=== PATIENT | male | born 1955 | race Caucasian/White ===

== ENCOUNTER 2021-04-12 22:37 | Emergency (ER) | payer MEDICARE, SELFPAY ==
[2021-04-12 22:38] VITALS: BP 202/62; PULSE 58; RESP 16; TEMP 36; O2SAT 100; BMI 29.9
--- NOTE | 2021-04-12 22:56 | EKG12_ITS ---
Test Reason : CP Blood Pressure : / mmHG Vent. Rate : 072 BPM Atrial Rate : 072 BPM P-R Int : 170 ms QRS Dur : 082 ms QT Int : 394 ms P-R-T Axes : 049 026 214 degrees QTc Int : 431 ms Normal sinus rhythm ST & T wave abnormality, consider inferolateral ischemia Abnormal ECG Confirmed by AUTUMN VICTORIA, MANUEL ([id number]), editor managing newspaper CHICO MONTES DE OCA ([id number]) on 04/13/2021 9:26:41 AM Referred By: MONICA Confirmed By:MANUEL LEYVA MD
--- NOTE | 2021-04-12 22:57 | EDS_ITS ---
HPI History of Present Illness Chief Complaint: Chest Pain Narrative Narrative: Patient with past medical history of diabetes, hypertension, CABG x5 remotely presents with chest pain for the last 2 hours. He states that he has left arm numbness with this. He also has past medical history of anxiety. He has not taken his baby aspirin today. He denies any nausea or vomiting but states that he feels slightly short of breath. He denies any diaphoresis. No exacerbating or alleviating factors. He states usually when he gets chest pain and pressure that he lays down and it resolves, but is not happening today. He just awoke from a nap when he started feeling the symptoms. PFSH PFS Home Medications aspirin 81 mg PO DAILY 04/12/21 [History Last Taken Unknown] atorvastatin 40 mg PO DAILY 04/12/21 [History Last Taken Unknown] glipizide 10 mg PO BID 04/12/21 [History Last Taken Unknown] levothyroxine 112 mcg PO DAILY 04/12/21 [History Last Taken Unknown] metformin 500 mg PO BID 04/12/21 [History Last Taken Unknown] metoprolol tartrate 25 mg PO BID 04/12/21 [History Last Taken Unknown] pantoprazole 40 mg PO DAILY 04/12/21 [History Last Taken Unknown] sucralfate 1 g PO Q8 04/12/21 [History Last Taken Unknown] Allergy/AdvReac Type Severity Reaction Status Date / Time ELASTIC Allergy Hives Uncoded 04/12/21 22:42 MYOCIN Allergy Hives Uncoded 04/12/21 22:42 Social History Smoking Status: Never smoker ROS ROS ED ROS Narrative Constitutional: No fever, no chills. HEENT: No sore throat. No neck pain. No loss of vision. No rhinorrhea. Cardiovascular: Positive chest pain. No palpitations. No pedal edema. Respiratory: No cough, no shortness of breath. Abdominal: No abdominal pain. No nausea. No vomiting. Genitourinary: No dysuria. No hematuria. Musculoskeletal: No myalgias. No arthralgias. Neurologic: No headaches. No dizziness. No lightheadedness. Paresthesias left arm. Skin: No rash. No change in color. Psychiatric: No depression. No anxiety. EXAM Physical Exam Narrative Exam Narrative: Afebrile. Vital signs noted. HEENT: Normocephalic. Atraumatic. PERRL, EOMI. Neck soft and supple. No point tenderness or step off. Cardiovascular: Regular rate and rhythm. No murmurs, rubs, or gallops appreciated. Respiratory: No tachypnea. Lungs clear to auscultation bilaterally. Gastrointestinal: Abdomen soft, nontender, with normoactive bowel sounds. No rebound or guarding. Neurological: Awake. Alert. Nonfocal, nonlateralizing. Skin: No rash. Normal color. No pallor. Musculoskeletal: No pedal edema. Full range of motion extremities. Psychiatric: Mild anxiety. Becomes slightly tearful on examination. Const Vital Signs: 04/12/21 22:38 04/12/21 22:50 04/12/21 23:03 Temperature 96.8 F L Temperature Source Temporal Pulse Rate 58 L Respiratory Rate 16 Respiratory Effort Normal Non-Labored Blood Pressure 202/62 H Blood Pressure Mean 108 Pulse Ox 100 Oxygen Delivery Method Room Air Room Air 04/13/21 00:26 Temperature Temperature Source Pulse Rate 54 L Respiratory Rate 20 H Respiratory Effort Blood Pressure 153/52 H Blood Pressure Mean 85 Pulse Ox 99 Oxygen Delivery Method Heart Score History: Slightly/Non-Suspicious ECG: Nonspecific Repolarization Age: >/= 65 years Risk Factors: >/= 3 Risk Factors or History of CAD Troponin: </= Normal Limit Score: 5 MDM MDM MDM Narrative Medical decision making narrative: Chest pain work-up was pursued. He was administered aspirin. EKG demonstrates normal sinus rhythm at 72 bpm without ectopy or acute ST changes. He has normal white count of 7.2, hemoglobin stable 11.3. Normal platelet count of 211. Electrolyte panel is grossly unremarkable. Chest x-ray shows no acute process/disease. Patient complained of dizziness. His sister was concerned that he could not move his arm. However, the patient is able to move it but states it is painful. He is able to hold up. There is no evidence of pronator drift. I do not think that this is a stroke, but given his dizziness I will obtain a CT of the brain and repeat his troponin. Although he has history of coronary artery disease, and an intermediate heart score I do feel that he will be able to be ruled out by biomarkers. His repeat troponin is negative at 5. CT of the brain shows no acute process. Repeat examination shows he has improved movement of his left arm. Hence, I do not think that this is stroke or TIA. He has more pain and is afraid to move his arm, it was never a loss of motor function. He was given ibuprofen 600 mg orally which he usually takes. 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 Return instructions to the emergency department were reviewed. Disposition is discharged home in stable condition. Lab Data Attestation: I reviewed the patient's lab results. Labs: Laboratory Results - last 24 hr 04/12/21 04/12/21 04/12/21 23:00 23:00 23:00 WBC 7.2 RBC 3.66 L Hgb 11.3 L Hct 34.3 L MCV 93.7 MCH 30.9 MCHC 32.9 RDW Std Deviation 43.5 RDW Coeff of Jolynn 12.5 Plt Count 211 MPV 10.4 Immature Gran % (Auto) 0.300 Neut % (Auto) 37.2 L Lymph % (Auto) 52.0 H [place] % (Auto) 7.1 Eos % (Auto) 3.1 Baso % (Auto) 0.3 Absolute Neuts (auto) 2.7 Absolute Lymphs (auto) 3.73 Nucleated RBC % 0 Sodium 140 Potassium 4.0 Chloride 107 Carbon Dioxide 28.0 Anion Gap 5 BUN 24 H Creatinine 1.12 Estim Creat Clear Calc 56.44 Est GFR (MDRD) Af Amer 84 Est GFR (MDRD) Non-Af 70 BUN/Creatinine Ratio 21.4 H Glucose 208 H Calcium 9.5 Troponin I High Sens 7 B-Natriuretic Peptide 95.7 04/13/21 00:43 WBC RBC Hgb Hct MCV MCH MCHC RDW Std Deviation RDW Coeff of Jolynn Plt Count MPV Immature Gran % (Auto) Neut % (Auto) Lymph % (Auto) [place] % (Auto) Eos % (Auto) Baso % (Auto) Absolute Neuts (auto) Absolute Lymphs (auto) Nucleated RBC % Sodium Potassium Chloride Carbon Dioxide Anion Gap BUN Creatinine Estim Creat Clear Calc Est GFR (MDRD) Af Amer Est GFR (MDRD) Non-Af BUN/Creatinine Ratio Glucose Calcium Troponin I High Sens 5 B-Natriuretic Peptide Radiography Diagnostic Testing: Clinical Impression(s) from Imaging Studies Chest X-Ray 04/12/21 23:08 IMPRESSION: No acute disease. Electronically Signed: Eron Licea MD at 23:50 EST , Brain CT 04/13/21 00:17 IMPRESSION: Negative head/brain CT without intravenous contrast. Electronically Signed: Eron Licea MD at 0:55 EST , Discharge Plan Triage Chief Complaint: Chest Pain ED Provider: Héctor Miles Dx/Rx/DC Orders Clinical Impression: Chest pain, Left arm pain Instructions: ED Chest Pain, Uncertain Cause, ED Pain, Acute, Uncertain Cause Prescriptions: No Action metformin 500 mg tablet 500 mg PO BID RF: 0 atorvastatin 80 mg tablet 40 mg PO DAILY RF: 0 sucralfate 1 gram tablet 1 g PO Q8 RF: 0 pantoprazole 40 mg tablet,delayed release (DR/EC) 40 mg PO DAILY RF: 0 glipizide 5 mg tablet 10 mg PO BID RF: 0 levothyroxine 112 mcg tablet 112 mcg PO DAILY RF: 0 metoprolol tartrate 25 mg tablet 25 mg PO BID RF: 0 aspirin 81 mg Capsule 81 mg PO DAILY RF: 0 Primary Care Provider: Juvencio Shrestha Referrals: Juvencio Shrestha MD [Primary Care Provider] - 3-5 Days if not improving Disposition Disposition: Home, Self Care
[2021-04-12] MEDS: Aspirin 81 MG TAB.CHEW 324 MG PO (23:00)
--- NOTE | 2021-04-12 23:08 | RAD_ITS ---
EXAM: XR CHEST, 1 VIEW CLINICAL INDICATION: chest pain TECHNIQUE: Frontal view of the chest. This report was created using [employer] report generation technology. COMPARISON: 10/18/2012 FINDINGS: LUNGS AND PLEURAL SPACES: Unremarkable. No consolidation or edema. No pneumothorax. No effusion. HEART: CABG postsurgical changes. MEDIASTINUM: Central airways and mediastinal contour are unremarkable. BONES/JOINTS: Intact sternotomy wires. SOFT TISSUES: Unremarkable. VASCULATURE: Atherosclerotic calcifications of the nonenlarged thoracic aortic arch. RAD/Chest 1 View (Portable) IMPRESSION: No acute disease. Electronically Signed: Eron Licea MD at 23:50 EST ,
[2021-04-12 23:26] LABS: Anion Gap 5 (5-15); BUN 24 mg/dL (7-18); BUN/Creat Ratio 21.4 RATIO (10-20); Calcium,Total 9.5 mg/dL (8.5-10.1); Chloride 107 mmol/L (98-107); Creatinine, Serum 1.12 mg/dL (0.70-1.30); EST Glomerular Filtration Rate 70 mL/min (>60); Est Glom Filt Rate - Afr Amer 84 mL/min (>60); Estimated Creatinine Clearance 56.44 ml/min; Glucose 208 mg/dL (74-106); Sodium Level 140 mmol/L (136-145); Troponin-I HS 7 pg/mL (3.0-78.0)
[2021-04-12 23:30] LABS: Absolute Lymphocyte Count 3.73 X10^3/uL (0.83-4.51); Absolute Neutrophil Count 2.7 X10^3/uL (2.0-7.7); Basophil# 0.02 X10^3/uL; Basophil% 0.3 % (0-1); Eosinophil# 0.22 X10^3/uL; Eosinophils% 3.1 % (0-5); Hematocrit 34.3 % (40-54); Hemoglobin 11.3 g/dL (13.0-16.5); Lymphocyte # 3.73 X10^3/ul (0.83-4.51); Mean Corp Hgb Conc 32.9 g/dL (32-36); Mean Corpuscular Hgb 30.9 pg (27.0-32.0); Mean Corpuscular Volume 93.7 fL (80-94); Mean Platelet Vol. 10.4 fl (6.2-12.0); Monocyte# 0.51 X10^3/uL; Monocyte% 7.1 % (0-10); NRBC Flagged by Analyzer 0 % (0-5); Neutrophil # 2.67 X10^3/uL (2.7-7.7); Neutrophil % 37.2 % (47-70); Platelet Count 211 K/mm3 (150-450); RBC Distribution Width CV 12.5 % (11.6-14.6); RBC Distribution Width SD 43.5 fl (35.1-43.9); Red Blood Count 3.66 M/mm3 (4.6-6.2); White Blood Count 7.2 K/mm3 (4.4-11.0)
[2021-04-12 23:49] LABS: BNP,B-Type NATRIURETIC PEPTIDE 95.7 pg/mL (0-100)
--- NOTE | 2021-04-13 00:17 | CT_ITS ---
EXAM: CT HEAD WITHOUT INTRAVENOUS CONTRAST CLINICAL INDICATION: dizziness TECHNIQUE: Multiple axial images were obtained of the head without intravenous contrast. CTDIvol = ( 44.99 ) mGy, DLP = ( 829.85 ) mGycm This CT exam was performed using one or more of the following dose reduction techniques: automated exposure control, adjustment of the mA and/or kV according to patient size, and/or use of iterative reconstruction technique. This report was created using [employer] report generation technology. COMPARISON: None. FINDINGS: BRAIN AND EXTRA-AXIAL SPACES: Unremarkable. No intra- or extra-axial hemorrhage. No evidence of acute infarct. No intracranial mass or mass effect. There is preservation of the castillo/white matter interface. Posterior fossa structures are unremarkable. Ventricles are appropriate for age. No hydrocephalus. Basal cisterns are patent. BONES/JOINTS: Unremarkable. No discrete lytic or blastic abnormalities. SINUSES: Unremarkable as visualized. Clear. MASTOID AIR CELLS: Unremarkable. Clear. ORBITS: Visualized globes, extraocular muscles, optic nerves and retrobulbar fat appear unremarkable. CT/Brain/Head without Contrast IMPRESSION: Negative head/brain CT without intravenous contrast. Electronically Signed: Eron Licea MD at 0:55 EST ,
[2021-04-13 00:26] VITALS: BP 153/52; PULSE 54; RESP 20; O2SAT 99
[2021-04-13 01:24] LABS: Troponin-I HS 5 pg/mL (3.0-78.0)
[2021-04-13 01:40] VITALS: BP 168/78; PULSE 50; RESP 16; O2SAT 100
[2021-04-13] MEDS: Ibuprofen 600 MG Tablet PO (01:43)
[2021-04-13 01:45] VITALS: BP 168/78; PULSE 50; RESP 16; O2SAT 100
== END 2021-04-13 01:49 | disposition home or self-care (01) ==
PROVIDERS: Emergency Provider Emergency Medicine; PCP Internal Medicine; Visit Provider Emergency Medicine
DX: R07.9 Chest pain, unspecified (principal); E11.9 Type 2 diabetes mellitus without complications; F41.9 Anxiety disorder, unspecified; R42 Dizziness and giddiness; I10 Essential (primary) hypertension; M79.603 Pain in arm, unspecified; Z95.1 Presence of aortocoronary bypass graft; R06.02 Shortness of breath; R20.2 Paresthesia of skin; Z79.82 Long term (current) use of aspirin
CPT/HCPCS: 70450; 71045; 80048; 83880; 84484; 85025; 93005; 99283; A4216

== ENCOUNTER → 2021-10-16 | Outpatient (CLI) | payer MEDICARE, SELFPAY ==
[2021-10-16 11:59] LABS: Bacteria 0 SEEN /hpf (None Seen); Mucous, Urine 0 SEEN /hpf (<or=2+); Red Blood Cells-Urine 0 SEEN /hpf (0-5); White Blood Cells 0 SEEN /hpf (0-5)
[2021-10-16 15:02] LABS: Color, Urine Yellow (Yellow); Glucose, Dipstick 50 mg/dl (Normal); Ketone-Dipstick Negative (Negative); Leukocyte Esterase-Dipstick 25 /ul (Negative); Nitrite-Dipstick Negative (Negative); Occult Blood-Urine Negative /ul (Negative); Protein-Dipstick 15 mg/dl (Negative); Urine Bilirubin Dipstick Negative (Negative); Urine Clarity Clear (Clear); Urine Urobilinogen Normal (Normal)
[2021-10-16 15:07] LABS: Erythrocyte Sedimentation Rate 9 mm/hr (0-20)
[2021-10-16 15:09] LABS: Absolute Neutrophil Count 3.3 X10^3/uL (2.0-7.7); Basophil# 0.02 X10^3/uL; Basophil% 0.3 % (0-1); Eosinophil# 0.17 X10^3/uL; Eosinophils% 2.5 % (0-5); Hematocrit 33.7 % (40-54); Hemoglobin 11.1 g/dL (13.0-16.5); Lymphocyte % 41.5 % (19-41); Mean Corp Hgb Conc 32.9 g/dL (32-36); Mean Corpuscular Hgb 31.3 pg (27.0-32.0); Mean Corpuscular Volume 94.9 fL (80-94); Mean Platelet Vol. 10.6 fl (6.2-12.0); Monocyte# 0.41 X10^3/uL; Monocyte% 6.1 % (0-10); NRBC Flagged by Analyzer 0 % (0-5); Neutrophil # 3.32 X10^3/uL (2.7-7.7); Neutrophil % 49.3 % (47-70); Platelet Count 223 K/mm3 (150-450); RBC Distribution Width CV 12.5 % (11.6-14.6); RBC Distribution Width SD 43.7 fl (35.1-43.9); Red Blood Count 3.55 M/mm3 (4.6-6.2); White Blood Count 6.7 K/mm3 (4.4-11.0)
[2021-10-16 15:11] LABS: Squamous Epithelial Cells - UA 0-5 SEEN /hpf (0-5)
[2021-10-16 15:17] LABS: Vitamin B12 534 pg/mL (211-911)
[2021-10-16 15:21] LABS: Hemoglobin A1c 7.4 % (3.8-5.6)
[2021-10-16 15:24] LABS: Microalbumin,Random Urine 22.4 mg/L (NO RANGE EST.); Microalbumin:Creatinine Ratio 13.2 mg/g CRE (<30 mg/g CRE)
[2021-10-16 15:36] LABS: AST(SGOT) 10 U/L (15-37); Alanine Aminotransfer ALT/SGPT 21 U/L (16-61); Albumin, Serum 3.9 g/dL (3.2-5.0); Alkaline Phosphatase 53 U/L (45-117); Anion Gap 7 (5-15); BUN 24 mg/dL (7-18); BUN/Creat Ratio 20.9 RATIO (10-20); CRP < 2.90 mg/L (0.0-3.0); Calcium,Total 9.2 mg/dL (8.5-10.1); Chloride 107 mmol/L (98-107); Cholesterol 148 mg/dL (200); Creatinine, Serum 1.15 mg/dL (0.70-1.30); EST Glomerular Filtration Rate 68 mL/min (>60); Est Glom Filt Rate - Afr Amer 82 mL/min (>60); Globulin 3.8 g/dL (2.2-4.2); Glucose 80 mg/dL (74-106); High Density Lipoprotein 55 mg/dL; Magnesium 1.8 mg/dL (1.6-2.6); Protein, Total 7.7 g/dL (6.4-8.2); Sodium Level 141 mmol/L (136-145); Thyroid Stim Hormone (TSH) 1.89 uIU/mL (0.358-3.74); Triglycerides 104 mg/dL; Very Low Density Lipoprotein 21 mg/dL (5-40)
== END | disposition home or self-care (01) ==
LOC: MTLAB 11:47
PROVIDERS: PCP Internal Medicine; Referring Provider Internal Medicine; Visit Provider Internal Medicine
DX: E11.65 Type 2 diabetes mellitus with hyperglycemia (principal); I73.9 Peripheral vascular disease, unspecified; E78.5 Hyperlipidemia, unspecified; R07.9 Chest pain, unspecified; R79.89 Other specified abnormal findings of blood chemistry; I15.2 Hypertension secondary to endocrine disorders
CPT/HCPCS: 36415; 80053; 80061; 81001; 82043; 82306; 82570; 82607; 83036; 83735; 84439; 84443; 85025; 85652; 86140; 87086

== ENCOUNTER 2022-12-16 12:23 | Emergency (ER) | payer MEDICARE, SELFPAY ==
[2022-12-16 12:24] VITALS: BP 144/50; PULSE 57; RESP 18; TEMP 36.4; O2SAT 99; BMI 33.9
--- NOTE | 2022-12-16 12:46 | EX.ED.DYSGE1 ---
HPI History of Present Illness Chief Complaint: Hypoglycemia Narrative Narrative: 67-year-old male with history of diabetes poorly with hypoglycemic episode. He states that he has been having trouble with his blood sugars recently. He tells me that he was given his glipizide and metformin this morning which he takes p.o. twice daily and decided to go back to sleep and slept all morning. He did not eat breakfast or lunch. He was supposed to go to his primary care physician today to discuss the low blood sugars. He reports that he drinks 1 to 3 glasses of water a day. He drinks juice sometimes and coffee as well as tea. He states he does not eat much. [facility] Medical History Diabetes History of stroke Hyperlipidemia Hypertension Hypothyroid Home Medications aspirin 81 mg capsule 81 mg PO DAILY 04/12/21 [History Last Taken Unknown] atorvastatin 80 mg tablet 40 mg PO DAILY 04/12/21 [History Last Taken Unknown] glipizide 5 mg tablet 10 mg PO BID 04/12/21 [History Last Taken Unknown] levothyroxine 112 mcg tablet 112 mcg PO DAILY 04/12/21 [History Last Taken Unknown] metformin 500 mg tablet 500 mg PO BID 04/12/21 [History Last Taken Unknown] metoprolol tartrate 25 mg tablet 25 mg PO BID 04/12/21 [History Last Taken Unknown] pantoprazole 40 mg tablet,delayed release 40 mg PO DAILY 04/12/21 [History Last Taken Unknown] sucralfate 1 gram tablet 1 g PO Q8 04/12/21 [History Last Taken Unknown] Allergy/AdvReac Type Severity Reaction Status Date / Time erythromycin base Allergy Unknown Rash Verified 09/24/22 14:46 [From E-Mycin] chondroitin sulfate A Allergy Hives Verified 05/30/22 14:15 [From DuoVisc Visco Elastic] hyaluronic acid Allergy Hives Verified 05/30/22 14:15 [From DuoVisc Visco Elastic] Surgical History History of heart bypass surgery Social History Smoking Status: Never smoker ROS ROS ED Constitutional Constitutional ED: Denies chills, fever(s) or sweats Eyes Eyes: Denies blurry vision or change in vision ENT ENT ED: Denies ear pain or sore throat Cardiovascular Cardiovascular: Denies chest pain, palpitations or racing heartbeat Respiratory/Chest Respiratory/Chest: Denies cough, dyspnea or sputum Gastrointestinal Gastrointestinal: Denies abdominal pain, constipation, diarrhea, nausea or vomiting Genitourinary Genitourinary ED: Denies dysuria, hematuria or urinary frequency Musculoskeletal Musculoskeletal: Denies arthralgias, myalgias or neck pain Integumentary Denies abscess, Abrasions or rash Neurologic Neurologic: Denies headache(s), paresthesias or weakness Psychiatric Psychiatric: Denies anxiety, depression, suicidal ideation or suicidal thoughts Endocrine Endocrinology: Denies polydipsia or polyuria EXAM Physical Exam Const Vital Signs: 12/16/22 12:24 12/16/22 12:31 Temperature 97.6 F L Temperature Source Oral Pulse Rate 57 L Respiratory Rate 18 Respiratory Effort Normal Respiratory Pattern Normal Blood Pressure 144/50 H Blood Pressure Mean 81 Pulse Ox 99 Oxygen Delivery Method Room Air Positive well nourished General Appearance ED: NAD HEENT Reports moist mucous membranes Resp normal respiratory effort Cardio regular rate and regular rhythm Neuro oriented x3 and CN's II-XII intact bilaterally Sensorium / Orientation: alert Psych mental status grossly normal Skin no rashes or lesions noted and no wounds MDM MDM MDM Narrative Medical decision making narrative: Patient with episode of hypoglycemia. It sounds as if he is not eating and drinking a lot and he is taking his diabetic medications and causing low blood sugars. He was post see his PCP today but did not because of the episode. He states he feels fine now. He was given oral glucose and D10 drip prior to arrival. His blood sugar is now in the 90s. He feels better. He states he would still like to eat something and his sugars little higher. No abdominal pain, chest pain, shortness of breath. We will obtain a CBC to assess white blood cell count, hemoglobin, platelets. BMP to assess renal function and electrolytes. Urinalysis to assess for UTI. CBC shows normal white blood cell count 7.1. Hemoglobin is 9.6 with no comparison for years but he is not admitting to any black or bloody stools or black or bloody emesis. He is not on any blood thinners. He is not hypotensive. His BUN is not elevated to suggest GI bleed. Creatinine is elevated today at 1.31 so he was given IV fluids. Glucose 266 without anion gap. Discussed with the patient's primary care physician who recommended that we discontinue the glipizide for now and increase his fluid intake as well as regular meals with his metformin. He states that his A1c typically is elevated in the 9 range. He will follow-up with him as an outpatient. He will restart his glipizide at a later date. Impression: 1. dehydration 2. Hyperglycemia 3. Anemia Lab Data Attestation: I reviewed the patient's lab results. Labs: Laboratory Results - last 24 hr 12/16/22 12/16/22 12:40 13:31 WBC 7.1 RBC 3.25 L Hgb 9.6 L Hct 31.6 L MCV 97.2 H MCH 29.5 MCHC 30.4 L RDW Std Deviation 46.9 H RDW Coeff of Jolynn 13.2 Plt Count 218 MPV 10.2 Immature Gran % (Auto) 0.400 Neut % (Auto) 73.6 H Lymph % (Auto) 17.5 L [place] % (Auto) 7.1 Eos % (Auto) 1.1 Baso % (Auto) 0.3 Absolute Neuts (auto) 5.3 Absolute Lymphs (auto) 1.25 Nucleated RBC % 0 Sodium 133 L Potassium 4.3 Chloride 102 Carbon Dioxide 25.0 Anion Gap 6 BUN 20 H Creatinine 1.31 H Estim Creat Clear Calc 47.60 Est GFR (MDRD) Af Amer 70 Est GFR (MDRD) Non-Af 58 L BUN/Creatinine Ratio 15.3 Glucose 266 H Calcium 8.7 POC Glucose 176 H Discharge Plan Triage Chief Complaint: Hypoglycemia ED Provider: Ty Oro Dx/Rx/DC Orders Instructions: ED Hypoglycemia Oral Diabetic ... Prescriptions: No Action metformin 500 mg tablet 500 mg PO BID Patient Comments: TAKE ONE TABLET BY MOUTH TWICE A DAY WITH meals for 30 days atorvastatin 80 mg tablet 40 mg PO DAILY Patient Comments: TAKE ONE TABLET BY MOUTH EVERY DAY sucralfate 1 gram tablet 1 g PO Q8 Patient Comments: TAKE 1 TABLET BY MOUTH ON AN EMPTY STOMACH EVERY 8 HOURS pantoprazole 40 mg tablet,delayed release (DR/EC) 40 mg PO DAILY Patient Comments: TAKE ONE TABLET BY MOUTH ONCE DAILY glipizide 5 mg tablet 10 mg PO BID Patient Comments: TAKE THREE (3) TABLETS BY MOUTH TWICE DAILY levothyroxine 112 mcg tablet 112 mcg PO DAILY Patient Comments: TAKE ONE TABLET BY MOUTH once DAILY IN THE MORNING on an empty stomach metoprolol tartrate 25 mg tablet 25 mg PO BID Patient Comments: TAKE ONE TABLET BY MOUTH TWICE A DAY WITH FOOD aspirin 81 mg Capsule 81 mg PO DAILY Primary Care Provider: Juvencio Shrestha Referrals: Juvencio Shrestha MD [Primary Care Provider] - Activity Restrictions/Additional Instructions: Hold your glipizide 10 mg p.o. twice daily for now. Continue metformin. Increase your water intake. I did speak with your primary care physician today who recommends follow-up as an outpatient. Disposition Disposition: Home, Self Care
[2022-12-16 12:59] LABS: Absolute Lymphocyte Count 1.25 X10^3/uL (0.83-4.51); Absolute Neutrophil Count 5.3 X10^3/uL (2.0-7.7); Basophil# 0.02 X10^3/uL; Basophil% 0.3 % (0-1); Eosinophil# 0.08 X10^3/uL; Eosinophils% 1.1 % (0-5); Hematocrit 31.6 % (40-54); Hemoglobin 9.6 g/dL (13.0-16.5); Lymphocyte # 1.25 X10^3/ul (0.83-4.51); Lymphocyte % 17.5 % (19-41); Mean Corp Hgb Conc 30.4 g/dL (32-36); Mean Corpuscular Hgb 29.5 pg (27.0-32.0); Mean Corpuscular Volume 97.2 fL (80-94); Mean Platelet Vol. 10.2 fl (6.2-12.0); Monocyte# 0.51 X10^3/uL; Monocyte% 7.1 % (0-10); NRBC Flagged by Analyzer 0 % (0-5); Neutrophil # 5.25 X10^3/uL (2.7-7.7); Neutrophil % 73.6 % (47-70); Platelet Count 218 K/mm3 (150-450); RBC Distribution Width CV 13.2 % (11.6-14.6); RBC Distribution Width SD 46.9 fl (35.1-43.9); Red Blood Count 3.25 M/mm3 (4.6-6.2); White Blood Count 7.1 K/mm3 (4.4-11.0)
[2022-12-16 13:09] LABS: Anion Gap 6 (5-15); BUN 20 mg/dL (7-18); BUN/Creat Ratio 15.3 RATIO (10-20); Calcium,Total 8.7 mg/dL (8.5-10.1); Chloride 102 mmol/L (98-107); Creatinine, Serum 1.31 mg/dL (0.70-1.30); EST Glomerular Filtration Rate 58 mL/min (>60); Est Glom Filt Rate - Afr Amer 70 mL/min (>60); Glucose 266 mg/dL (74-106); Potassium 4.3 mmol/L (3.5-5.1); Sodium Level 133 mmol/L (136-145)
[2022-12-16] MEDS: 0.9% Normal Saline (1000mL) 1,000 ML 1000 ML IV (13:34)
[2022-12-16 13:52] LABS: Bedside Glucose 176 mg/dL (74-106)
[2022-12-16 15:07] VITALS: BP 155/52
== END 2022-12-16 15:09 | disposition home or self-care (01) ==
PROVIDERS: Emergency Provider Student in an Organized Health Care Education/Training Program; PCP Internal Medicine; Visit Provider Student in an Organized Health Care Education/Training Program
DX: E86.0 Dehydration (principal); E11.00 Type 2 diabetes mellitus with hyperosmolarity without nonketotic hyperglycemic-hyperosmolar coma (NKHHC); D64.9 Anemia, unspecified; I10 Essential (primary) hypertension; E78.5 Hyperlipidemia, unspecified; E03.9 Hypothyroidism, unspecified; Z79.899 Other long term (current) drug therapy; Z79.82 Long term (current) use of aspirin; Z79.84 Long term (current) use of oral hypoglycemic drugs; Z86.73 Personal history of transient ischemic attack (TIA), and cerebral infarction without residual deficits
CPT/HCPCS: 80048; 82962; 85025; 99285; A4216

== ENCOUNTER → 2023-02-17 | Outpatient (CLI) | payer MEDICARE, SELFPAY ==
[2023-02-17 13:56] LABS: Mucous, Urine 0 SEEN /hpf (<or=2+); Squamous Epithelial Cells - UA 0 SEEN /hpf (0-5)
[2023-02-17 15:21] LABS: Color, Urine Yellow (Yellow); Glucose, Dipstick 1000 mg/dl (Normal); Ketone-Dipstick 5 mg/dl (Negative); Leukocyte Esterase-Dipstick 500 /ul (Negative); Nitrite-Dipstick Positive (Negative); Occult Blood-Urine 50 /ul (Negative); Protein-Dipstick 100 mg/dl (Negative); Specific Gravity, Urine 1.015 (1.002-1.030); Urine Bilirubin Dipstick Negative (Negative); Urine Clarity Sl. Cloudy (Clear); Urine Urobilinogen Normal (Normal)
[2023-02-17 15:25] LABS: Absolute Lymphocyte Count 4.17 X10^3/uL (0.83-4.51); Absolute Neutrophil Count 5.5 X10^3/uL (2.0-7.7); Basophil# 0.05 X10^3/uL; Basophil% 0.5 % (0-1); Eosinophil# 0.12 X10^3/uL; Eosinophils% 1.1 % (0-5); Hematocrit 30.7 % (40-54); Hemoglobin 9.7 g/dL (13.0-16.5); Lymphocyte # 4.17 X10^3/ul (0.83-4.51); Lymphocyte % 39.2 % (19-41); Mean Corp Hgb Conc 31.6 g/dL (32-36); Mean Corpuscular Hgb 30.6 pg (27.0-32.0); Mean Corpuscular Volume 96.8 fL (80-94); Mean Platelet Vol. 9.9 fl (6.2-12.0); Monocyte# 0.71 X10^3/uL; Monocyte% 6.7 % (0-10); NRBC Flagged by Analyzer 0 % (0-5); Neutrophil # 5.54 X10^3/uL (2.7-7.7); Platelet Count 254 K/mm3 (150-450); RBC Distribution Width CV 15.3 % (11.6-14.6); RBC Distribution Width SD 54.1 fl (35.1-43.9); Red Blood Count 3.17 M/mm3 (4.6-6.2); White Blood Count 10.6 K/mm3 (4.4-11.0)
[2023-02-17 15:28] LABS: Bacteria 2+ /hpf (None Seen); Red Blood Cells-Urine 0-5 SEEN /hpf (0-5); White Blood Cells 25-50 SEEN /hpf (0-5)
[2023-02-17 15:59] LABS: Vitamin B12 361 pg/mL (211-911); Vitamin D,25 Hydroxy 46.5 ng/mL
[2023-02-17 16:06] LABS: Microalbumin:Creatinine Ratio 263.6 mg/g CRE (<30 mg/g CRE)
[2023-02-17 16:14] LABS: Erythrocyte Sedimentation Rate 36 mm/hr (0-20)
[2023-02-17 16:25] LABS: Hemoglobin A1c 9.3 % (3.8-5.6)
[2023-02-17 17:24] LABS: ALB/GLOB Ratio 0.9 RATIO (0.9-2.4); AST(SGOT) 11 U/L (15-37); Alanine Aminotransfer ALT/SGPT 13 U/L (16-61); Albumin, Serum 3.5 g/dL (3.2-5.0); Alkaline Phosphatase 76 U/L (45-117); Anion Gap 7 (5-15); BUN 22 mg/dL (7-18); BUN/Creat Ratio 16.5 RATIO (10-20); CRP < 2.90 mg/L (0.0-3.0); Calcium,Total 9.5 mg/dL (8.5-10.1); Chloride 104 mmol/L (98-107); Cholesterol 181 mg/dL (200); Creatinine, Serum 1.33 mg/dL (0.70-1.30); EST Glomerular Filtration Rate 57 mL/min (>60); Est Glom Filt Rate - Afr Amer 69 mL/min (>60); Globulin 3.8 g/dL (2.2-4.2); Glucose 271 mg/dL (74-106); High Density Lipoprotein 38 mg/dL; Magnesium 1.7 mg/dL (1.6-2.6); PSA,Total - Annual Screen < 0.01 ng/mL (0.00-4.00); Potassium 5.3 mmol/L (3.5-5.1); Protein, Total 7.3 g/dL (6.4-8.2); Sodium Level 135 mmol/L (136-145); T4 Free Direct 1.52 ng/dL (0.76-1.46); Thyroid Stim Hormone (TSH) 3.69 uIU/mL (0.358-3.74); Triglycerides 143 mg/dL; Very Low Density Lipoprotein 29 mg/dL (5-40)
== END | disposition home or self-care (01) ==
PROVIDERS: PCP Internal Medicine; Referring Provider Internal Medicine; Visit Provider Internal Medicine
DX: Z00.00 Encounter for general adult medical examination without abnormal findings (principal); E11.42 Type 2 diabetes mellitus with diabetic polyneuropathy; Z13.31 Encounter for screening for depression; I11.9 Hypertensive heart disease without heart failure; W19.XXXA Unspecified fall, initial encounter; G62.9 Polyneuropathy, unspecified; I25.10 Atherosclerotic heart disease of native coronary artery without angina pectoris; F32.9 Major depressive disorder, single episode, unspecified; Z12.5 Encounter for screening for malignant neoplasm of prostate; E03.9 Hypothyroidism, unspecified; E78.2 Mixed hyperlipidemia; E87.5 Hyperkalemia; E55.9 Vitamin D deficiency, unspecified; K21.9 Gastro-esophageal reflux disease without esophagitis; R35.0 Frequency of micturition
CPT/HCPCS: 36415; 80053; 80061; 81001; 82043; 82306; 82570; 82607; 82746; 83036; 83735; 84153; 84439; 84443; 85025; 85652; 86140; 87077; 87086; 87088; 87186; G0103

== ENCOUNTER → 2023-05-26 | Outpatient (CLI) | payer MEDICARE, SELFPAY ==
[2023-05-26 11:30] LABS: Bacteria 0 SEEN /hpf (None Seen); Mucous, Urine 0 SEEN /hpf (<or=2+); Red Blood Cells-Urine 0 SEEN /hpf (0-5); Squamous Epithelial Cells - UA 0 SEEN /hpf (0-5); White Blood Cells 0 SEEN /hpf (0-5)
[2023-05-26 15:40] LABS: Color, Urine Yellow (Yellow); Glucose, Dipstick 100 mg/dl (Normal); Ketone-Dipstick Negative (Negative); Leukocyte Esterase-Dipstick 25 /ul (Negative); Nitrite-Dipstick Negative (Negative); Occult Blood-Urine Negative /ul (Negative); Protein-Dipstick 15 mg/dl (Negative); Urine Bilirubin Dipstick Negative (Negative); Urine Clarity Clear (Clear); Urine Urobilinogen Normal (Normal)
[2023-05-26 15:48] LABS: Absolute Lymphocyte Count 4.88 X10^3/uL (0.83-4.51); Absolute Neutrophil Count 2.4 X10^3/uL (2.0-7.7); Basophil# 0.03 X10^3/uL; Basophil% 0.4 % (0-1); Eosinophils% 1.3 % (0-5); Hematocrit 34.2 % (40-54); Hemoglobin 10.8 g/dL (13.0-16.5); Lymphocyte # 4.88 X10^3/ul (0.83-4.51); Lymphocyte % 63.2 % (19-41); Mean Corp Hgb Conc 31.6 g/dL (32-36); Mean Corpuscular Hgb 29.3 pg (27.0-32.0); Mean Corpuscular Volume 92.9 fL (80-94); Mean Platelet Vol. 10.5 fl (6.2-12.0); Monocyte# 0.34 X10^3/uL; Monocyte% 4.4 % (0-10); NRBC Flagged by Analyzer 0 % (0-5); Neutrophil # 2.36 X10^3/uL (2.7-7.7); Neutrophil % 30.6 % (47-70); Platelet Count 245 K/mm3 (150-450); RBC Distribution Width CV 12.8 % (11.6-14.6); RBC Distribution Width SD 43.6 fl (35.1-43.9); Red Blood Count 3.68 M/mm3 (4.6-6.2); White Blood Count 7.7 K/mm3 (4.4-11.0)
[2023-05-26 16:13] LABS: ALB/GLOB Ratio 1.1 RATIO (0.9-2.4); AST(SGOT) 16 U/L (15-37); Alanine Aminotransfer ALT/SGPT 20 U/L (16-61); Alkaline Phosphatase 48 U/L (45-117); Anion Gap 8 (5-15); BUN 19 mg/dL (7-18); BUN/Creat Ratio 15.1 RATIO (10-20); Calcium,Total 9.3 mg/dL (8.5-10.1); Chloride 101 mmol/L (98-107); Creatinine, Serum 1.26 mg/dL (0.70-1.30); EST Glomerular Filtration Rate 60 mL/min (>60); Est Glom Filt Rate - Afr Amer 73 mL/min (>60); Globulin 3.7 g/dL (2.2-4.2); Glucose 135 mg/dL (74-106); Microalbumin,Random Urine 13.8 mg/L (NO RANGE EST.); Microalbumin:Creatinine Ratio 17.5 mg/g CRE (<30 mg/g CRE); Potassium 3.9 mmol/L (3.5-5.1); Protein, Total 7.7 g/dL (6.4-8.2); Sodium Level 135 mmol/L (136-145)
== END | disposition home or self-care (01) ==
LOC: MTLAB 11:24
PROVIDERS: PCP Internal Medicine; Referring Provider Internal Medicine; Visit Provider Internal Medicine
DX: E87.5 Hyperkalemia (principal); E11.22 Type 2 diabetes mellitus with diabetic chronic kidney disease; N18.31 Chronic kidney disease, stage 3a
CPT/HCPCS: 36415; 80053; 81001; 82043; 82570; 83036; 85025

== ENCOUNTER → 2023-08-12 | Outpatient (CLI) | payer MEDICARE, SELFPAY ==
--- NOTE | 2023-08-12 13:53 | ART_ITS ---
Reason For Study: Absent left pedal pulses Procedure A bilateral lower extremity continuous wave Doppler with analog waveform analysis and ankle brachial indexes. Left Segmental Pressures Left brachial= 165mmHg. Left posterior tibial artery = 128mmHg. Left digit = 57 mmHg. DP is noncompressible. The left dorsalis pedis waveforms are biphasic. The left posterior tibial artery waveforms are biphasic. Right Segmental Pressures Right brachial= 170mmHg. Right posterior tibial artery = 177mmHg. Right digit = 67 mmHg. DP is noncompressible. The right dorsalis pedis waveforms are biphasic. The right posterior tibial artery waveforms are biphasic. Indices The right ankle brachial index by the posterior tibial artery is 1.04. The right digital-brachial index is .39. DP is noncompressible. The left ankle brachial index by the posterior tibial artery is .75. The left digital-brachial index is .34. DP is noncompressible. VL/Ankle Brachial Index Interpretation Summary Right ZEYAD 1.04, normal. Doppler/PVR waveforms of the right ankle mildly diminis hed Left ZEYAD 0.75, moderate arterial insufficiency. Doppler/PVR waveforms of the le ft ankle moderately diminished at rest. Ordering Physician: Radha Benitez Referring Physician: RADHA BENITEZ MD Performed By: Mateo Maddox RVT and Student
== END | disposition home or self-care (01) ==
LOC: CVS 13:49
PROVIDERS: PCP Internal Medicine; Referring Provider Psychiatry & Neurology Neurology; Visit Provider Psychiatry & Neurology Neurology
DX: I73.9 Peripheral vascular disease, unspecified (principal)
CPT/HCPCS: 93922

== ENCOUNTER → 2023-08-20 | Outpatient (CLI) | payer MEDICARE, SELFPAY ==
--- NOTE | 2023-08-20 06:37 | MRI_ITS ---
STUDY: MRI CERVICAL SPINE WITHOUT CONTRAST REASON FOR EXAM: Male, 68 years old. Neck pain; gait disorder TECHNIQUE: Standardized fat and water weighted pulse sequences were obtained in the sagittal and axial planes. COMPARISON: None FINDINGS: Normal foramen magnum and brainstem-cervical cord junction. Normal craniovertebral junction. Normal anterior atlantoaxial articulation. Normal odontoid process. Normal cervical lordosis. Normal vertebral bodies and posterior osseous elements. C2-3: Normal endplates. Normal disc height, signal and morphology. Normal central canal and intervertebral neural foramina. C3-4: Normal endplates. Normal disc height, signal and morphology. Normal central canal and intervertebral neural foramina. C4-5: Normal endplates. Normal disc height, signal and morphology. Normal central canal and intervertebral neural foramina. C5-6: Normal endplates. Normal disc height, signal and morphology. Normal central canal and intervertebral neural foramina. C6-7: Normal endplates. Normal disc height, signal and morphology. Normal central canal and intervertebral neural foramina. C7-T1: Normal endplates. Normal disc height, signal and morphology. Normal central canal and intervertebral neural foramina. Normal cervical cord. Normal visualized soft tissue structures. MRI/Spine Cervical (Routine) IMPRESSION: Normal unenhanced MR examination of the cervical spine. Electronically Signed: Tony Gordon MD at 14:57 EDT ,
--- NOTE | 2023-08-20 06:37 | MRI_ITS ---
STUDY: MRI LUMBAR SPINE WITHOUT CONTRAST REASON FOR EXAM: Male, 68 years old. Low back pain; lower extremity radiculopathy; gait TECHNIQUE: Standardized fat and water weighted pulse sequences were obtained in the sagittal and axial planes. COMPARISON: None FINDINGS: T12-L1: Normal endplates. Normal disc height, hydration and morphology. Normal bilateral facet joints. Normal central canal and bilateral lateral recesses. Normal bilateral intervertebral neural foramina. Normal lumbar lordosis. There is no substantial scoliosis. Normal conus medullaris that terminates at the L1. L1-2: Disc desiccation but no disc protrusion, spinal stenosis, or neural foraminal stenosis. L2-3: Mild bilateral facet hypertrophy and moderate ligament flavum hypertrophy. Mild bilobed disc protrusion produces mild spinal stenosis and mild bilateral neural foraminal stenosis. L3-4: Normal endplates. Normal disc height, hydration and morphology. Normal bilateral facet joints. Normal central canal and bilateral lateral recesses. Normal bilateral intervertebral neural foramina. L4-5: Mild bilateral facet hypertrophy and moderate ligament flavum hypertrophy. No disc protrusion, spinal stenosis, or neural foraminal stenosis. L5-S1: Mild bilateral facet hypertrophy and moderate ligament flavum hypertrophy. Mild broad disc protrusion produces mild spinal stenosis and mild bilateral neural foraminal stenosis. Normal visualized sacral ala. Moderate friction related edema in the posterior subcutaneous fat. MRI/Spine Lumbar (Routine) IMPRESSION: Multilevel degenerative changes, as described above. Electronically Signed: Tony Gordon MD at 15:00 EDT ,
--- NOTE | 2023-08-20 06:37 | MRI_ITS ---
STUDY: MRI BRAIN WITH AND WITHOUT CONTRAST (ATTENTION INTERNAL AUDITORY CANALS - I.A.C.''s) REASON FOR EXAM: Male, 68 years old. mild cognitive impairment; gait disorder; Hx CVA -- With attention to IACs TECHNIQUE: Standardized multiplanar fat and water weighted pulse sequences were obtained. IV 17 cc clariscan was administered for the contrast portion of the examination. COMPARISON: None. FINDINGS: Normal bilateral temporal bones. Normal bilateral internal auditory canals. There is no demonstrated intracanalicular or cisternal vestibular schwannoma (acoustic neuroma). There is no enhancement of the bilateral VIIth or VIIIth cranial nerves. Normal bilateral cochlea, vestibules and semicircular canals. There is mild cerebral atrophy with widening of the extra-axial spaces and ventricular dilatation. There are a limited number of small white matter hyperintensities, distributed throughout the deep white matter tracts of the cerebral hemispheres, consistent with mild chronic white matter ischemic changes. There is no evidence for recent intracranial ischemia or other cause of cytotoxic edema on diffusion weighted imaging (DWI). Normal bilateral basal ganglia. Normal thalami. Normal flow voids within the major intracranial circulation suggesting patency by spin echo criteria. Normal venous enhancement. There is no enhancing intra-axial or extra-axial abnormality. There is no extra-axial fluid accumulation. Normal sella turcica, pituitary gland, infundibular stalk, optic chiasm and hypothalamus. Normal tectal plate and pineal gland. There are chronic white matter ischemic changes of the haydee. The midbrain and medulla are otherwise normal. Normal cerebellum. Normal basal cisterns. There are bilateral ocular lens implants with otherwise normal intraorbital contents. Normal visualized paranasal sinuses. Normal calvarium and skull base. Normal visualized soft tissue structures. Normal visualized upper cervical spine. MRI/Brain W/WO Contrast IMPRESSION: 1. Involutional changes of the brain, as described above. No acute infarct. 2. No MR evidence of vestibular schwannoma (acoustic neuroma) stenosis. Electronically Signed: Tony Gordon MD at 15:04 EDT ,
[2023-08-20 07:25] LABS: CREATININE FINGERSTICK 1.3 mg/dL (0.70-1.30)
== END | disposition home or self-care (01) ==
PROVIDERS: PCP Internal Medicine; Referring Provider Psychiatry & Neurology Neurology; Visit Provider Psychiatry & Neurology Neurology
DX: R42 Dizziness and giddiness (principal); G31.84 Mild cognitive impairment of uncertain or unknown etiology; R26.9 Unspecified abnormalities of gait and mobility; Z86.73 Personal history of transient ischemic attack (TIA), and cerebral infarction without residual deficits; M54.2 Cervicalgia; M54.50 Low back pain, unspecified; M54.16 Radiculopathy, lumbar region
CPT/HCPCS: 70553; 72141; 72148; A9575

== ENCOUNTER → 2023-10-14 | Outpatient (CLI) | payer MEDICARE, SELFPAY ==
[2023-10-14 14:29] LABS: Microalbumin,Random Urine 10.2 mg/L (NO RANGE EST.); Microalbumin:Creatinine Ratio 15.5 mg/g CRE (<30 mg/g CRE)
== END | disposition home or self-care (01) ==
LOC: POLAB3 13:17
PROVIDERS: PCP Internal Medicine; Visit Provider Internal Medicine Nephrology
DX: E11.3291 Type 2 diabetes mellitus with mild nonproliferative diabetic retinopathy without macular edema, right eye (principal)
CPT/HCPCS: 82043; 82570

== ENCOUNTER → 2023-12-05 | Outpatient (CLI) | payer MEDICARE, SELFPAY ==
--- OUTSIDE RECORDS SUMMARY | 2023-12-05 06:40 | XMS RPT_ITS | CCD ---
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 alcohol cravings. Labs: None noted today Patient encouraged to continue meeting with his therapist every Today patient reports her follow-up visit. Situational triggers have worsened his depression and anxiety. There have been episodes of bitter, sarcastic arguments with his sister, about him moving out and finding a new place for himself. Patient has been getting his daughter's help to look at different places and get the paperwork done, and the stress of the process is taking its toll on his mental health. Patient now has a car given to him by a very close friend, that he has been driving around to do errands and get to doctor's appointments. His other vehicle is with his estranged Brionna in [place]. Patient states that he met with over the weekend. She continues to talk about problems in their relationships and escalating his emotions and intensity to an overwhelming level. She also drinks in his presence, and takes him with her when she goes shopping for alcohol. Patient mentioned an incident the other day when they were at the grocery, in the line to buy wine bottles, and the patient noticed that Brionna was intensely watching his reaction to all the alcohol around him. Her drinking appears to be a significant risk factor for patient's relapse. When asked about cravings, patient said that he has not relapsed yet, but continues to get very close to it. If she had opened that bottle of good wine that day, I would have taken a sip . No SI/HI/AVH. Later in the interview, patient expressed, in confidence, some sensitive personal details, and how he had been persecuted and discriminated all his life because of it. We shall continue to explore it in subsequent visits (sn). Medication side effects: None Suicidal/Homicidal Thoughts/Plans: None Substance Use History: None VITAL SIGNS: There were no vitals taken for this visit. LAB DATA: Reviewed most recent MENTAL STATUS EXAMINATION: Appearance: appears stated age, ,Male, well developed, well nourished, normal clothing, grooming is Within Normal Limits Activity: Normal , Steady gait, normal muscle tone, movements noted Behavior: Cooperative, Good eye contact, forthcoming with information and engaged in conversation Speech: spontaneous , Normal rate, Normal volume, clear articulation, appropriate phonetics and syntax Mood: Euthymic Affect: appropriate to content Thought Process: Linear, rational, goal directed Thought Content: Focused on symptoms and management, anxious ruminations, apprehensions about cravings and relapsing into alcohol use, No suicidal ideation, intent or plan., No homicidal ideation, intent or plan., No perceptual disturbances like delusions/paranoia/halluc inations. Did not appear internally stimulated Cognition: Orientation: Person, Place, Time and Situation Attention: Intact Concentration: Intact Language: Intact naming, Int (more content not included)... Normal [facility] CNOVon 08-27-2022 CNOV Office Visit (ARESCL ) ----- JOSSUE GIL ([id number]) 1955 M Date Time Provider Department 08/27/22 1:00 PM DIAMOND JEAN ARESCL During your visit today, we recorded the following information about you: Diamond Jean MD 08/27/2022 2:44 PM Signed [facility] PROGRESS NOTE PATIENT: Jossue Gil MRD: [id number] DATE: August 27, 2022 This document has been created with the use of voice recognition technology. It may contain inaccuracies, misspellings, syntax errors, or word sense that escaped review IDENTIFYING INFORMATION: Jossue is a 66 year old male with a history of coronary artery disease, and recent strokes, and PPH of depression and anxiety. CHIEF COMPLAINT: The of my great granddaughter brought me so much happiness SUBJECTIVE: Plan from last visit (July 02, 2022): See patient back in 7 to 8 weeks Medications: Increase Lexapro dose to 20 mg at bedtime, for mood and anxiety Continue the dose of gabapentin as before: Scheduled 600 mg nightly + PRN 100 mg at morning and afternoon. For alcohol cravings, anxiety and chronic pain Labs: None ordered today Patient is encouraged to continue meeting with his therapist every . Today patient reports for follow-up visit. Reports a recent, significantly positive occurrence in his life: the of his great granddaughter. Patient went to [facility] to help with taking care of the , and was away from [place] for about 3 weeks. He reports that the experience brought him great ryley and hope. I enjoyed the baby-love . Reports significant improvement in anxiety and depression owing to this event. Back home, the stressors persist. He is still looking for place to move out, as his sister is turning increasingly frustrated and hostile with his presence. Things are calmer now with his ex Brionna. Patient disclosed the troubles in the personal life of his daughter Pratibha. Patient reports some incipient problems with memory. He has started noticing that it takes him longer to read a book now, it takes longer for him to finish sentences now. We shall continue to explore this in subsequent visits. Towards the end of the interview, patient discussed some sensitive personal details, and mentioned a constant fear of persecution because of it. We shall continue to talk about it further in subsequent visits. Alcohol cravings although persistent, are still under control. Some intrusive thoughts about alcohol consumption when he drives by liquor stores. He needs about 3 doses a week of the PRN Gabapentin 100 mg, in addition to the scheduled nighttime 600 mg dose. Good compliance with medication. Good sleep and appetite. No SI/HI/AVH Medication side effects: None Suicidal/Homicidal Thoughts/Plans: None Substance Use History: None VITAL SIGNS: There were no vitals taken for this visit. LAB DATA: Most recent lab values MENTAL STATUS EXAMINATION: Appearance: appears stated age, ,Male, well developed, well nourished, normal clothing, grooming is Within Normal Limits Activity: Normal , Steady gait, normal muscle tone, no abnormal movements noted Behavior: Cooperative, Good eye contact, engaged in conversation and forthcoming with information Speech: spontaneous , Normal rate, Normal volume, Clear, appropriate phonetics and syntax Mood: Euthymic Affect: appropriate to content Thought Process: Linear, goal directed Thought Content: Future orientation and positive outlook especially in the context of of great granddaughter, fear of persecution regarding some sensitive personal details that he disclosed today, No suicidal ideation, intent or plan., No homicidal ideation, intent or plan., Coherent No perceptual disturbances like delusions, paranoia or hallucinations. Patient did not appear internally stimulated Cognition: Orientation: Person, Place, Time and Situation Attention: Intact Concentration: Intact Language: Intact naming, Intact repetition Estimated Intelligence: Good Memory: Intact recent memory, Intact remote memory Abstraction: Intact Insight: fair Judgement: fair RATING SCALES: PHQ-9 Score: 15 (08/27/2022 1:40 PM) (0-4) minimal depression, (5-9) mild depression, (10-14) moderate depression, (15-19) moderately severe depression, (20-27) severe depression SARAH-7 Total Score: 11 (08/27/2022 1:41 PM) (0-4) minimal anxiety, (5-9) mild anxiety, (10-14) moderate anxiety, (15-21) severe anxiety RISK ASSESSMENT: Low, in context of current behavioral status, regular compliance with medications, and recent of great grandchild acted as a significant positive factor IMPRESSION: 66-year-old male patient with multiple medical comorbidities including coronary artery disease s/p multiple CABGs, recent stroke (more content not included)... Normal [facility] 25(OH)D3 [facility] 2022 25-hydroxyvitamin D3 [Mass/Vol] 32.9 ng/mL Normal >=30.0 [facility] Comment on above: Order Comment: Speci men Type: BLOOD SPECIMEN [facility] Facility: [facility] Address: [address] [place], [place] [address]AN[place]ONY [place], [place] [address] Result Comment: Clas sification of 25 [place] Vitamin D status: Deficiency: <= 20.0 ng/ml. Insufficiency: 21.0-29.0 ng/ml. Sufficiency: >= 30.0 ng/ml. Performed By: #### 1 989-3 #### [facility] CLIA [id number] [address] [place] [facility] CBC W Auto Differential pane l (Bld)on 04-02-2022 Basophils (Bld) [#/Vol] 0.04 10*3/uL Normal <0.11 [facility] Comment on above: Order Comment: Speci men Type: BLOOD SPECIMEN Ordering Facility: [facility] Address: [address] [address] Performed By: #### 5 7021-8 #### [facility] CLIA [id number] [address] [place] Basophils/100 WBC (Bld) 0.5 % Normal [facility] Comment on above: Order Comment: Speci men Type: BLOOD SPECIMEN [facility]ing [facility] Address: [address] [address] Performed By: #### 5 7021-8 #### [facility] CLIA [id number] [address] Differential cell count method Nom (Bld) Auto Normal [facility] Comment on above: Order Comment: Speci men Type: BLOOD SPECIMEN [facility]ing Facility[facility] Address: [address] [address] Performed By: #### 5 7021-8 #### [facility] CLIA [id number] [address] [place] Eosinophils (Bld) [#/Vol] 0.34 10*3/uL Normal <0.46 [facility] Comment on above: Order Comment: Speci men Type: BLOOD SPECIMEN [facility] Address: [address] [place] [address] Performed By: #### 5 7021-8 #### [facility] CLIA [id number] [address] Eosinophils/100 WBC (Bld) 4.5 % Normal [facility] Comment on above: Order Comment: Speci men Type: BLOOD SPECIMEN [facility]ing Facility: [facility] Address: [address] [place] [address] Performed By: #### 5 7021-8 #### [facility] CLIA [id number] [address] Erythrocyte distribution width (RBC) [Ratio] 12.9 % Normal 11.5-15.0 [facility] Comment on above: Order Comment: Speci men Type: BLOOD SPECIMEN [facility] Address: [address] [place] [address] Performed By: #### 5 7021-8 #### [facility] CLIA [id number] [address] Hematocrit (Bld) [Volume fraction] 34.9 % Low 39.0-51.0 [facility] Comment on above: Order Comment: Speci men Type: BLOOD SPECIMEN [facility] Address: [address] [place] [address] Performed By: #### 5 7021-8 #### [facility] CLIA [id number] [address] Hemoglobin (Bld) [Mass/Vol] 11.0 g/dL Low 13.0-17.0 [facility] Comment on above: Order Comment: Speci men Type: BLOOD SPECIMEN [facility] Address: [address] [place] [address] Performed By: #### 5 7021-8 #### [facility] CLIA [id number] [address] Immature granulocytes (Bld) [#/Vol] 10*3/uL Normal <0.10 [facility] Comment on above: Order Comment: Speci men Type: BLOOD SPECIMEN [facility] Address: [address] [place], [place] [id number] Performed By: #### 5 7021-8 #### [facility] CLIA [id number] [address] Immature granulocytes/100 WBC (Bld) 0.3 % Normal [facility] Comment on above: Order Comment: Speci men Type: BLOOD SPECIMEN [facility] Address: [address] [place] [address] Performed By: #### 5 7021-8 #### [facility] CLIA [id number] [address] [place] Lymphocytes (Bld) [#/Vol] 3.16 10*3/uL Normal 1.00-4.00 [facility] Comment on above: Order Comment: Speci men Type: BLOOD SPECIMEN [facility] Address: [address] [place] [address] Performed By: #### 5 7021-8 #### [facility] CLIA [id number] [address] [place] [address] Lymphocytes/100 WBC (Bld) 42.2 % Normal [facility] Comment on above: Order Comment: Speci men Type: BLOOD SPECIMEN [facility] Address: [address] [place] [address] Performed By: #### 5 7021-8 #### [facility] CLIA [id number] [address] MCH (RBC) [Entitic mass] 30.2 pg Normal 26.0-34.0 [facility] Comment on above: Order Comment: Speci men Type: BLOOD SPECIMEN [facility] Address: [address] [place] [address] Performed By: #### 5 7021-8 #### [facility] CLIA [id number] [address] [place] [facility] MCHC (RBC) [Mass/Vol] 31.5 g/dL Normal 30.5-36.0 [facility] Comment on above: Order Comment: Speci men Type: BLOOD SPECIMEN Ordering [facility] Address: [address] [place] [address] Performed By: #### 5 7021-8 #### [facility] CLIA [id number] [address] [place] MCV (RBC) [Entitic vol] 95.9 fL Normal 80.0-100.0 [facility] Comment on above: Order Comment: Speci men Type: BLOOD SPECIMEN [facility] Address: [address] [place] [address] Performed By: #### 5 7021-8 #### [facility] CLIA [id number] [address] [place] Monocytes (Bld) [#/Vol] 0.48 10*3/uL Normal <0.87 [facility] Comment on above: Order Comment: Speci men Type: BLOOD SPECIMEN [facility] Address: [address] [place] [address] Performed By: #### 5 7021-8 #### [facility] CLIA [id number] [address] [place] Monocytes/100 WBC (Bld) 6.4 % Normal [facility] Comment on above: Order Comment: Speci men Type: BLOOD SPECIMEN [facility] Address: [address] [place] [address] Performed By: #### 5 7021-8 #### [facility] CLIA [id number] [address] [place] Neutrophils (Bld) [#/Vol] 3.45 10*3/uL Normal 1.45-7.50 [facility] Comment on above: Order Comment: Speci men Type: BLOOD SPECIMEN [facility] Address: [address] [place] [address] Performed By: #### 5 7021-8 #### [facility] CLIA [id number] [address] [place] Neutrophils/100 WBC (Bld) 46.1 % Normal [facility] Comment on above: Order Comment: Speci men Type: BLOOD SPECIMEN [facility] Address: [address] [place] [address] Performed By: #### 5 7021-8 #### [facility] CLIA [id number] [address] Nucleated RBC (Bld) [#/Vol] 10*3/uL Normal <0.01 [facility] Comment on above: Order Comment: Speci men Type: BLOOD SPECIMEN [facility] Address: [address] [place] [address] Performed By: #### 5 7021-8 #### [facility] CLIA [id number] [address] Nucleated RBC/100 WBC (Bld) [Ratio] 0.0 /100 WBC Normal [facility] Comment on above: Order Comment: Speci men Type: BLOOD SPECIMEN [facility] Address: [address] [place] [address] Performed By: #### 5 7021-8 #### [facility] CLIA [id number] [address] [place] Platelet mean volume (Bld) [Entitic vol] 10.3 fL Normal 9.0-12.7 [facility] Comment on above: Order Comment: Speci men Type: BLOOD SPECIMEN [facility] Address: [address] [place] [address] Performed By: #### 5 7021-8 #### [facility] CLIA [id number] [address] [place] Platelets (Bld) [#/Vol] 234 10*3/uL Normal 150-400 [facility] Comment on above: Order Comment: Speci men Type: BLOOD SPECIMEN [facility] Address: [address] [place] [address] Performed By: #### 5 7021-8 #### [facility] CLIA [id number] [address] RBC (Bld) [#/Vol] 3.64 10*6/uL Low 4.20-6.00 [facility] Comment on above: Order Comment: Speci men Type: BLOOD SPECIMEN [facility] Address: [address] [place] [address] Performed By: #### 5 7021-8 #### [facility] CLIA [id number] [address] WBC (Bld) [#/Vol] 7.49 10*3/uL Normal 3.70-11.00 [facility] Comment on above: Order Comment: Speci men Type: BLOOD SPECIMEN [facility] Address: [address] [place] [address] Performed By: #### 5 7021-8 #### [facility] CLIA [id number] [address] Comprehensive metabolic 2000 panelon 04-02-2022 Albumin [Mass/Vol] 4.4 g/dL Normal 3.9-4.9 [facility] Comment on above: Order Comment: Speci men Type: BLOOD SPECIMEN [facility] Address: [address] [place] [address] Performed By: #### 3 016-3, 63500-8, 2131-10 #### [facility] CLIA [id number] [address] ALP [Catalytic activity/Vol] 59 U/L Normal 38-113 [facility] Comment on above: Order Comment: Speci men Type: BLOOD SPECIMEN [facility] Address: [address] [place] [address] Performed By: #### 3 016-3, 19498-7, 2131-10 #### [facility] CLIA [id number] [address] ALT With P-5'-P [Catalytic activity/Vol] 14 U/L Normal 10-54 [facility] Comment on above: Order Comment: Speci men Type: BLOOD SPECIMEN [facility] Address: [address] [place] [address] Performed By: #### 3 016-3, , 2131-10 #### [facility] CLIA [id number] [address] [place] [facility] Anion gap [Moles/Vol] 10 mmol/L Normal 9-18 [facility] Comment on above: Order Comment: Speci men Type: BLOOD SPECIMEN [facility] Address: [address] [place] [address] Performed By: #### 3 016-3, , 2131-10 #### [facility] CLIA [id number] 1 [place] [address] [place] AST With P-5'-P [Catalytic activity/Vol] 16 U/L Normal 14-40 [facility] Comment on above: Order Comment: Speci men Type: BLOOD SPECIMEN [facility] Address: [address] [place] [address] Performed By: #### 3 016-3, , 2131-10 #### [facility] CLIA [id number] [address] [place] Bilirubin [Mass/Vol] 0.2 mg/dL Normal 0.2-1.3 [facility] Comment on above: Order Comment: Speci men Type: BLOOD SPECIMEN [facility] Address: [address] [place] [address] Performed By: #### 3 016-3, , 2131-10 #### [facility] CLIA [id number] [address] [place] Calcium [Mass/Vol] 10.0 mg/dL Normal 8.5-10.2 [facility] Comment on above: Order Comment: Speci men Type: BLOOD SPECIMEN [facility] Address: [address] [place] [address] Performed By: #### 3 016-3, 31234-0, 2131-10 #### [facility] CLIA [id number] [address] [place] Chloride [Moles/Vol] 102 mmol/L Normal 97-105 [facility] Comment on above: Order Comment: Speci men Type: BLOOD SPECIMEN [facility] Address: [address] [place] [address] Performed By: #### 3 016-3, 76367-2, 2131-10 #### [facility] CLIA [id number] [address] [place] CO2 [Moles/Vol] 27 mmol/L Normal 22-30 [facility] Comment on above: Order Comment: Speci men Type: BLOOD SPECIMEN [facility] Address: [address] [place] [address] Performed By: #### 3 016-3, , 2131-10 #### [facility] CLIA [id number] [address] [facility] Creatinine [Mass/Vol] 1.11 mg/dL Normal 0.73-1.22 [facility] Comment on above: Order Comment: Speci men Type: BLOOD SPECIMEN [facility] Address: [address] [place] [address] Performed By: #### 3 016-3, 54133-3, 2131-10 #### [facility] CLIA [id number] [address] ESTIMATED GLOMERULAR FILTRATION RATE 73 mL/min/1.73m??? Normal >=60 [facility] Comment on above: Order Comment: Speci men Type: BLOOD SPECIMEN [facility] Address: [address] [place] [address] Result Comment: Naomi mated Glomerular Filtration Rate (eGFR) is calculated using the 2020 CKD-EPI creatinine equation. This equation utilizes serum creatinine, sex, and age as parameters. The creatinine assay has traceable calibration to isotope dilution-mass spectrometry. Refer to KDIGO guidelines for clinical interpretation. In patients with unstable renal function, e.g. those with acute kidney injury, the eGFR may not accurately reflect actual GFR. Performed By: #### 3 016-3, , 2131-10 #### [facility] CLIA [id number] 1 [place] [address] [place] Glucose [Mass/Vol] 278 mg/dL High 74-99 [facility] Comment on above: Order Comment: Kendrick quezada Type: BLOOD SPECIMEN [facility] Address: [address] [place] [address] Result Comment: The [place] [employer] (ADA) provides guidance for cutoff values for fasting glucose and random glucose. The ADA defines fasting as no caloric intake for at least 8 hours. Fasting plasma glucose results between 100 to 125 mg/dL indicate increased risk for diabetes (prediabetes). Fasting plasma glucose results greater than or equal to 126 mg/dL meet the criteria for diagnosis of diabetes. In the absence of unequivocal hyperglycemia, results should be confirmed by repeat testing. In a patient with classic symptoms of hyperglycemia or hyperglycemic crisis, random plasma glucose results greater than or equal to 200 mg/dL meet the criteria for diagnosis of diabetes. Reference: Standards of Medical Care in Diabetes 2016, [place] [employer]. Diabetes Care. 2016.39(Suppl 1). Performed By: #### 3 016-3, , 2131-10 #### [facility] CLIA [id number] 1 [place] [address] [place] Potassium [Moles/Vol] 5.6 mmol/L High 3.7-5.1 [facility] Comment on above: Order Comment: Kendrick quezada Type: BLOOD SPECIMEN [facility] Address: [address] [place] [address] Performed By: #### 3 016-3, , 2131-10 #### [facility] CLIA [id number] 1 [place] [address] [place] Protein [Mass/Vol] 6.8 g/dL Normal 6.3-8.0 [facility] Comment on above: Order Comment: Kendrick quezada Type: BLOOD SPECIMEN [facility] Address: [address] [address] Performed By: #### 3 016-3, 14759-0, 2131-10 #### [facility] CLIA [id number] [address] [place] [facility] Sodium [Moles/Vol] 139 mmol/L Normal 136-144 [facility] Comment on above: Order Comment: Speci men Type: BLOOD SPECIMEN [facility] Address: [address] [place] [address] Performed By: #### 3 016-3, , 2131-10 #### [facility] CLIA [id number] [address] [place] Urea nitrogen [Mass/Vol] 17 mg/dL Normal 9-24 [facility] Comment on above: Order Comment: Speci men Type: BLOOD SPECIMEN [facility] Address: [address] [place] [address] Performed By: #### 3 016-3, , 2131-10 #### [facility] LABORATORY CLIA [id number] [address] [place] TSH SerPl-aCncon 04-02-2022 TSH Qn 0.212 m[IU]/L Low 0.270-4.200 [facility] Comment on above: Order Comment: Speci men Type: BLOOD SPECIMEN [facility]ing Facility[facility] Address: [place] [address] Performed By: #### 3 016-3, , 2131-10 #### [facility] CLIA [id number] 1 [place] [address] [place] Vit B12 SerPl-mCncon 023 Cobalamin (Vitamin B12) [Mass/Vol] 580 pg/mL Normal 232-1245 [facility] Comment on above: Order Comment: Speci men Type: BLOOD SPECIMEN Ordering Facility[facility] Address: [place] [address] Performed By: #### 3 016-3, 49110-1, 2132-9 #### [facility] CLIA [id number] 1 [place] [address] [place] HbA1c (Bld)on 10-16-2021 HbA1c (Bld) [Mass fraction] 7.4 % Abnormal 3.8 - 5.6 % [facility] OBSOLETEon 12-11-2020 OBSOLETE Refill (NEADFV) ----- JOSSUE GIL ([id number]) 1955 M Date Time Provider Department 12/11/20 SAMY DAY NEADFV During your visit today, we recorded the following information about you: Allergies As of Date: 12/11/2020 Noted Allergy Reaction ELASTIC 11/27/2009 2 - Rash ERYTHROMYCIN 11/20/2009 11 - Vomiting ERYTHROMYCIN BASE 10/07/2017 14 - Other: See Comments Z-JAMIL (AZITHROMYCIN) 11/16/2015 14 - Other: See Comments Comments: Welts on chest Date Reviewed: 11/14/2020 Reviewed by: Anika Moore MA - Fully Assessed Reason for Visit: Refill Request [94] Order(s):atorvastatin (LIPITOR) 80 mg tabletTAKE ONE TABLET BY MOUTH EVERY DAYDisp: 90 tabletRfl: 0 Prescriptions as of 12/11/2020 - atorvastatin (LIPITOR) 80 mg tablet TAKE ONE TABLET BY MOUTH EVERY DAY - clotrimazole (MYCELEX) 10 mg prakash Use 1 Prakash as instructed five times daily. - gabapentin (NEURONTIN) 100 mg capsule Take 100 mg by mouth q 12 HR. - gabapentin (NEURONTIN) 400 mg capsule Take 400 mg by mouth once daily. - pantoprazole DR (PROTONIX) 40 mg tablet TAKE ONE TABLET BY MOUTH ONCE DAILY - amLODIPine (NORVASC) 5 mg tablet Take 1 tablet by mouth once daily. - iv contrast (will be provided with radiology test) CTA ABD/PEL LE - No IV access, insert saline lock prior to the sedation, infusion, injection for imaging exam. Discontinue saline lock post exam. If Pt. has a central line or IVAD, may access for administration according to line specific nursing protocol. Once exam is complete flush line and de-access according to line specific nursing protocol in the CT contrast administration guidelines link. - cyanocobalamin, vitamin B-12, (VITAMIN B-12 ORAL) Take by mouth. - ergocalciferol, vitamin D2, (VITAMIN D2 ORAL) Take by mouth. - meclizine (ANTIVERT) 25 mg tab Take 1 tablet by mouth three times daily as needed (dizziness). for dizziness. - glipiZIDE (GLUCOTROL) 5 mg tablet Take 3 tablets by mouth twice daily. - lisinopril (ZESTRIL, PRINIVIL) 20 mg tablet Take 1 tablet by mouth twice daily. - metoprolol tartrate, short acting, (LOPRESSOR) 25 mg tablet Take 25 mg by mouth twice daily. - metFORMIN (GLUCOPHAGE) 500 mg tablet Take 500 mg by mouth twice daily with meals. - levothyroxine (SYNTHROID) 112 mcg tablet Take 112 mcg by mouth daily before breakfast. - Aspirin 81 mg ORAL Tab Take one(1) tablet daily. Problem List As Of Date 12/11/2020 Noted Resolved Congestive heart failure (HCC) [I50.9] 12/08/2009 Coronary artery disease involving [place]*07/02/2017 S/P CABG (coronary artery bypass graft) [Z95.1] 07/02/2017 Pure hypercholesterolemia [E78.00] 01/05/2018 Essential hypertension [I10] 01/05/2018 Lacunar infarct, acute (HCC) [I63.81] 03/03/2019 Cerebral infarction (HCC) [I63.9] 03/29/2019 Intracranial vascular stenosis [I67.9] 03/29/2019 Polyneuropathy [G62.9] 03/29/2019 Type 2 diabetes mellitus with diabetic polyneur*03/29/2019 CVA (cerebral vascular accident) (HCC) [I63.9] 05/29/2019 Prescriptions ordered this encounter Disp Refills Start End ATORVASTATIN 80 MG TABLET 90 t* 0 12/11/2020 Sig: TAKE ONE TABLET BY MOUTH EVERY DAY Medications Discontinued During This Encounter Prescriptions - atorvastatin (LIPITOR) 80 mg tablet (Discontinued) TAKE ONE TABLET BY MOUTH DAILY Encounter Status:Closed by SAMY DAY on 12/11/20 [facility] BRIEF OP NOTon 07-24-2020 BRIEF OP NOT HNO ID: [id number] Author: Aurora Ku MD Service: Vascular Surgery Author Type: Resident Type: Brief Op Note Filed: 07/24/2020 2:23 PM Note Text: BRIEF OPERATIVE / PROCEDURE NOTE LOG ID: [id number] Surgery/Procedure Date: 07/24/2020 Incision/Procedure Start Time: 12:32 PM Incision Close/Procedure End Time: 1:37 PM Surgeon(s)/Proceduralist( s) and Energy Project Engineer(s): Surgeon(s) and Role: * Cornelio Ritter MD - Primary No Additional Staff Procedure(s): Aortogram Right lower extremity angiogram Balloon angioplasty x2 of distal SFA and AK popliteal artery using 4mm x 60mm and 4mm x 40mm Impact Admiral drug coated balloon LIVIA Angio: Access: Left common femoral artery Closure: Mynx closure device and direct pressure (30 min) Contrast: 60 cc Fluorotime: 12 min, 126 Gy Anesthesia: Procedural Sedation ASA Class: ASA Class:: III Findings: Patent bilateral iliac arteries Occlusion of right distal SFA and above knee popliteal Occlusion of peroneal and posterior tibial with only anterior tibial/DP runoff to foot Free contrast flow through distal SFA/AK popliteal after angioplasty with improved runoff to R foot Pulses: LLE: DP palpable RLE: DP palpable RUE: Radial palpable LUE: Radial palpable Medications: Antiplatelet: Yes - Medication: ASA Dose: 81 mg Anticoagulation: No Statin: Yes - Medication: Atorvastatin Dose: 80 mg Beta Memo: Yes - Medication: Metoprolol Dose: 25 mg BID Estimated Blood Loss: 15 mls Specimens: None Complications: None PRE-OP/PRE-PROCEDURE DIAGNOSIS: RLE tissue loss POST-OP/POST-PROCEDURE DIAGNOSIS: Same as Preop SIGNATURE: Aurora Ku MD PATIENT NAME: Jossue Gil DATE: July 24, 2020 TIME: 2:14 PM [facility] Basic Metabolic Panlon 07-24 Anion gap [Moles/Vol] 11 mmol/L Normal -18 [facility] Comment on above: Performed By: #### C BC, BMP #### [place] [phone] Calcium [Mass/Vol] 9.6 mg/dL Normal 8.5-10.5 [facility] Comment on above: Performed By: #### C BC, BMP #### [place] [phone] Chloride [Moles/Vol] 106 mmol/L Normal 98-110 [facility] Comment on above: Performed By: #### C BC, BMP #### [place] [phone] CO2 [Moles/Vol] 24 mmol/L Normal 23-32 [facility] Comment on above: Performed By: #### C BC, BMP #### [place] [phone] Creatinine [Mass/Vol] 1.06 mg/dL Normal 0.70-1.40 [facility] Comment on above: Performed By: #### C BC, BMP #### [place] [phone] eGFR- Amer. >60 Normal >60 [facility] Comment on above: Performed By: #### C BC, BMP #### [place] [phone] eGFR-All Other Races >60 Normal >60 [facility] Comment on above: Result Comment: eGFR (Estimated GFR) Units of measure: mL/min/1.73 meters squared eGFR is derived from the reexpressed MDRD Study equation using the following parameters: serum creatinine, age, gender and race. The creatinine assay has been calibrated to be traceable to IDMS. An eGFR <60 mL/min/1.73m2 for >3 months is consistent with chronic kidney disease. Refer to KDOQI guidelines for clinical interpretation. In patients with unstable renal function, e.g. those with acute kidney injury, the eGFR may not accurately reflect actual GFR. Performed By: #### C BC, BMP #### [place] [phone] Glucose [Mass/Vol] 134 mg/dL High 65-100 [facility] Comment on above: Performed By: #### C BC, BMP #### [facility] [place] [phone] Potassium [Moles/Vol] 4.4 mmol/L Normal 3.5-5.0 [facility] Comment on above: Performed By: #### C BC, BMP #### [facility] [place] [phone] Sodium [Moles/Vol] 141 mmol/L Normal 135-146 [facility] Comment on above: Performed By: #### C BC, BMP #### [facility] [phone] Urea nitrogen [Mass/Vol] 20 mg/dL Normal 10-25 [facility] Comment on above: Performed By: #### C BC, BMP #### [facility] [id number] [place] [phone] CBCon 07-24-2020 Absolute nRBC <0.01 Normal <0.01 [facility] Comment on above: Performed By: #### C BC, BMP #### [facility] [id number] [place], [place] [phone] Erythrocyte distribution width (RBC) [Ratio] 12.5 % Normal 11.5-15.0 [facility] Comment on above: Performed By: #### C BC, BMP #### [facility] [place] [phone] Hematocrit (Bld) [Volume fraction] 33.8 % Low 39.0-51.0 [facility] Comment on above: Performed By: #### C BC, BMP #### [place] [phone] Hemoglobin (Bld) [Mass/Vol] 11.2 g/dL Low 13.0-17.0 [facility] Comment on above: Performed By: #### C BC, BMP #### [facility] [address] [place] [phone] MCH 30.9 pG Normal 26.0-34.0 [facility] Comment on above: Performed By: #### C BC, BMP #### [place] [phone] MCHC (RBC) [Mass/Vol] 33.1 g/dL Normal 30.5-36.0 [facility] Comment on above: Performed By: #### C BC, BMP #### [place] [phone] MCV (RBC) [Entitic vol] 93.1 fL Normal 80.0-100.0 [facility] Comment on above: Performed By: #### C BC, BMP #### [place] [phone] Platelet mean volume (Bld) [Entitic vol] 10.1 fL Normal 9.0-12.7 [facility] Comment on above: Performed By: #### C BC, BMP #### [phone] Platelets (Bld) [#/Vol] 222 10*3/uL Normal 150-400 [facility] Comment on above: Performed By: #### C BC, BMP #### [phone] RBC (Bld) [#/Vol] 3.63 10*6/uL Low 4.20-6.00 [facility] Comment on above: Performed By: #### C BC, BMP #### [phone] WBC (Bld) [#/Vol] 6.95 10*3/uL Normal 3.70-11.00 [facility] Comment on above: Performed By: #### C BC, BMP #### [place] [phone] NURSING PROGon 07-24-2020 NURSING PROG HNO ID: [id number] Author: Yady Carrasco RN Service: Nursing Author Type: Registered Nurse Type: Nursing Progress Note Filed: 07/24/2020 8:45 PM Note Text: Late entry 1407-Pt returned to RR s/p RLE agiogram, angioplasty of R SFA/Pop. Via L groin. 6fr sheath, mynx closure device. L groin site soft, Dressing clean dry intact, no bleeding no hematoma noted. See epic for sedation medications. Pt instructed on NPO status and bedrest restrictions until 8pm. Pt verbalizes understanding of bedrest restrictions. Pt reports no pain at this time. Call light within reach. 1415- Brionna brought to bedside. 1515-Pt resting comfortable in bed. L Groin site soft, dressing clean dry intact. No bleeding No hematoma noted. Call light within reach. 1630-Pt asking for home dose of Neurontin, Resident paged. 1800-pt reports decrease in pain after medication. L groin site soft, dressing clean dry intact, no bleeding no hematoma noted. Call light within reach. 1930- updated on potato picker time. 1954-Discharge instructions reviewed with patient. Pt verbalizes understanding of all instructions provided. 1999-Res at bedside. Pt ok for d/c. 2009-Pt independently ambulated in alex to bathroom, Steady gate noted. 2019-IV removed, all personal belongings returned to patient. 2034-Pt discharged in stable condition with all personal belongings. Lt groin site soft. Dressing clean dry intact, no bleeding no hematoma noted. Brionna providing ride home. [facility] OPERATIVE NOon 07-24-2020 OPERATIVE NO HNO ID: [id number] Author: Cornelio Ritter MD Service: Vascular Surgery Author Type: Physician Type: Operative Report Filed: 07/25/2020 7:35 AM Note Text: OPERATIVE/PROCEDURE REPORT LOG ID: [id number] Surgery/Procedure Date: 07/24/2020 Incision/Procedure Start Time: see brief op note Incision Close/Procedure End Time: Surgeon(s)/Proceduralist( s) and Energy Project Engineer(s): Surgeon(s) and Role: * Cornelio Ritter MD - Primary No Additional Staff PROCEDURE INDICATION: 65 year old male with right leg digit 1 tissue loss w ingrown toenail presents for angiogram possible intervention after a discussion of the risks/benefits/alternativ es. INTERVENTIONAL PROCEDURE: Ultrasound-guided left common femoral access Aorta and pelvic angiogram right lower extremity angiogram Balloon angioplasty of SFA and popliteal with 4mm dcb Anesthesia: Procedural Sedation PROCEDURAL DETAILS The patient was taken to the laborer/grade check and laid supine on the table. After time-in and under continuous oxygen and monitoring, IV analgesia and sedation were given. Moderate sedation consisting of continuous ECG, pulse oxymetry, cardiopulmonary monitoring, IV analgesia and sedation was performed by the nurse, overseen by the performing physician(s). Bilateral groins were prepped and draped in the usual sterile fashion. Using local anesthesia, ultrasound guidance, and a micropuncture system, the left sheet roller operator was accessed. A 6-Armenian sheath was exchanged into the DOVETAIL MACHINE OPERATOR using and a Contra catheter was advanced above the renal arteries for aortogram and pelvic angiogram. Up and over access was obtained and with the catheter parked in the contralateral common femoral artery, angiography with runoff was performed with selected DSA runs done stepwise to the foot. This showed patent renals, aorta, bilateral common and external iliac arteries, followed by occlusion of the popliteal and reconstitution of the below knee popliteal with AT runoff into the foot, occluded tp trunk/peroneal/pt. Heparin was administered to a therapeutic ACT. . The lesion was crossed and ballooned with a 4mm drug coated balloon for 3 minutes. Completion arteriogram revealed flow through the artery improved with a technically satisfactory result and no evidence of significant residual stenosis. The wires and catheters were removed and the long sheaths were exchanged for short sheaths. The mynx closure device was used and supplementary pressure held for hemostasis. The patient tolerated the procedure well. Pre-Op/Pre-Procedure Diagnosis: PAD - tissue loss Post-Op/Post-Procedure Diagnosis: same Estimated Blood Loss: 0 ml Specimens: None Implantable Devices: None Drains: None Complications: None I/primary surgeon/proceduralist performed the procedure with assistance. SIGNATURE: Cornelio Ritter MD PATIENT NAME: Jossue Gil DATE: 07/24/2020 TIME: 7:33 AM PAGER/CONTACT #: [facility] Yamilex 06-22-2020 SATISH Telephone (BLAIR) ----- CONGREGATIONALJOSSUE DERAS ([id number]) 1955 M Date Time Provider Department 06/22/20 BETTINA SIDDIQUI During your visit today, we recorded the following information about you: Bettina Siddiqui APRN.CNP 06/22/2020 2:54 PM Signed Stress test normal, no ischemia, normal LV function. Please notify patient. Rosa Isela Naik 06/22/2020 4:23 PM Signed Pt notified of priliminary result yesterday and message left for patient with result today. Asked to return call with questions. Allergies As of Date: 06/22/2020 Noted Allergy Reaction ELASTIC 11/27/2009 2 - Rash ERYTHROMYCIN 11/20/2009 11 - Vomiting ERYTHROMYCIN BASE 10/07/2017 14 - Other: See Comments GONZALO (AZITHROMYCIN) 11/16/2015 14 - Other: See Comments Comments: Welts on chest Date Reviewed: 06/20/2020 Reviewed by: Nani Oreilly RN - Fully Assessed Reason for Visit: Results [95] Prescriptions as of 06/22/2020 Sig: AMLODIPINE 5 MG TABLET Take 1 tablet by mouth once d* IV CONTRAST (RADIOLOGY PROCED* CTA ABD/PEL LE - No IV access* PANTOPRAZOLE 40 MG TABLET,DEL* Take 1 tablet by mouth once d* ATORVASTATIN 80 MG TABLET TAKE ONE TABLET BY MOUTH DAILY VITAMIN B-12 ORAL Take by mouth. VITAMIN D2 ORAL Take by mouth. MECLIZINE 25 MG TABLET Take 1 tablet by mouth three * GLIPIZIDE 5 MG TABLET Take 3 tablets by mouth twice* LISINOPRIL 20 MG TABLET Take 1 tablet by mouth twice * METOPROLOL TARTRATE 25 MG TAB* Take 25 mg by mouth twice brendan* METFORMIN 500 MG TABLET Take 500 mg by mouth twice da* LEVOTHYROXINE 112 MCG TABLET Take 112 mcg by mouth daily b* ASPIRIN 81 MG TABLET Take one(1) tablet daily. Problem List As Of Date 06/22/2020 Noted Resolved Congestive heart failure (HCC) [I50.9] 12/08/2009 Coronary artery disease involving [place]*07/02/2017 S/P CABG (coronary artery bypass graft) [Z95.1] 07/02/2017 Pure hypercholesterolemia [E78.00] 01/05/2018 Essential hypertension [I10] 01/05/2018 Lacunar infarct, acute (HCC) [I63.81] 03/03/2019 Cerebral infarction (HCC) [I63.9] 03/29/2019 Intracranial vascular stenosis [I67.9] 03/29/2019 Polyneuropathy [G62.9] 03/29/2019 Type 2 diabetes mellitus with diabetic polyneur*03/29/2019 CVA (cerebral vascular accident) (HCC) [I63.9] 05/29/2019 Encounter Status:Closed by BETTINA SIDDIQUI on 06/22/20 [facility] ALLIED HEALTHon 06-15-2020 ALLIED HEALTH HNO ID: [id number] Author: HUYEN Del Cid Service: ? Author Type: Associate Financial Advisor Type: Allied Health Filed: 06/15/2020 3:28 PM Note Text: Radiology Service Progress Note PATIENT NAME: Jossue Gil DATE OF SERVICE: June 15, 2020 TIME: 3:27 PM PATIENT IDENTITY VERIFICATION COMPLETED USING TWO (2) IDENTIFIERS: Name and Date of confirmed by patient verbally. FALL SCREENING: Has the patient had 2 falls in the last year or 1 fall with injury or currently using an Ambulatory Assistive Device (Walker, Cane, Wheelchair, Crutches, etc.)? No PATIENT GENDER DATA: Male PATIENT RELEVANT IMPLANT DATA REVIEWED: Not Applicable RADIOLOGY DEPARTMENT: CT; Exam(s) Completed: CTA Aorta/leg runoff PERIPHERAL IV DATA: Site assessment: Clean,Dry and Intact, Site disposition Discontinued SIGNED BY: HUYEN Del Cid June 15, 2020 3:27 PM [facility] CTA AORTA/FEM RUNOFF WWOon 0 06-15-2020 CTA AORTA/FEM RUNOFF WWO * * *Final Report* * * DATE OF EXAM: Jun 15 2020 3:33PM [facility] 0352 - CTA AORTA/FEM RUNOFF WWO / PROCEDURE REASON: Peripheral vascular disease (HCC) * * * * Physician Interpretation * * * * CT ANGIOGRAM OF THE ABDOMEN, PELVIS, AND BILATERAL LOWER EXTREMITIES HISTORY: 65 year old male ?PAD with?lifestyle limiting claudication (RLE digit 1 tissue loss). TECHNIQUE: High-resolution contrast-enhanced helical CT of the abdomen, pelvis and both lower extremities was performed, timed to the arterial phase. 3-D processing was performed by the physician on an independent work station, with MIP and volume-rendering techniques. Total of 120 ml of Omnipaque 350 was injected IV during the examination. The study was performed without oral contrast. The patient tolerated the injection without complications. Dose-Length Product (DLP): 1300 mGy*cm. CT Dose Reduction Employed: Automated exposure control (AEC) RESULT: COMPARISON: No prior studies are available for comparison. VASCULAR: The abdominal aorta demonstrate diffuse calcific atherosclerotic changes, predominant in the infrarenal segment. No acute aortic pathology. Separate origins of the splenic and Common hepatic artery directly from the aorta. Left gastric artery arises from the common hepatic artery. Superior mesenteric artery is patent with moderate atherosclerotic changes but no significant focal stenosis. Inferior mesenteric artery is patent with no significant focal stenosis. There are two right renal arteries. Right renal artery demonstrates moderate severe stenosis. There are two left renal arteries. Left renal artery demonstrates moderate severe stenosis. RIGHT: Iliacs: The common, internal and external iliac arteries are patent with diffuse calcific atherosclerotic changes. Femorals: The common femoral artery is patent with moderate atherosclerotic changes. The profunda femoris artery is patent. The superficial femoral artery is patent with diffuse calcific atherosclerotic changes and moderate stenoses along the distal segment. The popliteal artery demonstrate diffuse calcific atherosclerotic changes with segmental occlusions. Distal: Diffuse calcific atherosclerotic changes The tibio-peroneal trunk and anterior tibial arteries are grossly patent. The peroneal and posterior tibial arteries are attenuated and appear to demonstrate severe segmental occlusions. The dorsalis pedis artery is patent. LEFT LEG: Iliacs: The common, internal and external iliac arteries are patent with diffuse calcific atherosclerotic changes. Femorals: The common femoral artery is patent with moderate atherosclerotic changes. The profunda femoris artery is patent. The superficial femoral artery is patent with diffuse calcific atherosclerotic changes The popliteal artery demonstrate diffuse calcific atherosclerotic changes with segmental occlusions/severe stenosis. Distal: Diffuse calcific atherosclerotic changes The tibio-peroneal trunk is diffusely diseased. The anterior tibial artery is grossly patent and is seen extending into the foot. The peroneal artery is diffusely diseased and is attenuated/occluded distally. The posterior tibial artery is occluded. The dorsalis pedis artery is patent. NONVASCULAR FINDINGS: Limited chest reveal midline sternotomy wires. Visualized lung bases do not demonstrate any acute parenchymal abnormality. No effusions or pneumothorax. Left lingular and right upper lobe atelectatic changes. Within the limitations of arterial phase, the liver, gall bladder,spleen, pancreas, adrenals and kidneys are unremarkable. No hydronephrosis or obstruction. No significant abdominal or pelvic lymphadenopathy. Few yohan-pancreatic lymph nodes noted. No significant free fluid or air. No bowel dilation or wall thickening. No destructive lesions in the visualized skeleton. IMPRESSION: Diffuse atherosclerotic changes in the aorta. No acute aortic pathology. Right: - Diffuse atherosclerotic changes. - The superficial femoral artery demonstrate moderate stenoses along the distal segment. - The popliteal artery demonstrate segmental occlusions. - The tibio-peroneal trunk and anterior tibial arteries are grossly patent. - The peroneal and posterior tibial arteries are attenuated and appear to demonstrate severe segmental occlusions. - The dorsalis pedis artery is patent. Left: - Diffuse atherosclerotic changes. - The popliteal artery demonstrate segmental occlusions/severe stenosis. - The anterior tibial artery is grossly patent and is seen extending into the foot. - The peroneal artery is diffusely diseased and is attenuated/occluded distally. - The posterior tibial artery is occluded. - The dorsalis pedis artery is patent. Drop Hammer Pile Driver Operator: ASHELY Transcribe Date/Time: Jun 16 2020 11:05P Dictated by : NANCY BARNEY MD This examination was interpreted (more content not included)... Normal [facility] NURSING PROGon 06-15-2020 NURSING PROG HNO ID: [id number] Author: Laura Stone RN Service: Nursing Author Type: Registered Nurse Type: Nursing Progress Note Filed: 06/15/2020 3:03 PM Note Text: Radiology Service Progress Note DATE OF SERVICE: June 15, 2020 TIME: 2:50 PM PATIENT WEIGHT: 201 LBS PATIENT IDENTITY VERIFICATION COMPLETED USING TWO (2) STANDARD IDENTIFIERS: Name and Date of confirmed by patient verbally. FALL SCREENING: Has the patient had 2 falls in the last year or 1 fall with injury or currently using an Ambulatory Assistive Device (Walker, Cane, Wheelchair, Crutches, etc.)? Yes, Patient High Risk for Falls What interventions were put in place to prevent falls during this visit? Instructed Patient to Call for Help if Needed and Increased Observations by Caregivers PATIENT GENDER DATA: Male ALLERGIES: Reviewed and unchanged CONTRAST ALLERGY: No EXAM: CT -CONTRAST INDUCED NEPHROPATHY RISK FACTORS: Patient age > 60 years and Diabetic: Yes. Current medication(s): Metformin and glipizide. Patient currently has insulin pump?: No. CREATININE: Creatinine Date Value Ref Range Status 05/30/2019 0.85 0.70 - 1.40 mg/dL Final 05/29/2019 0.87 0.70 - 1.40 mg/dL Final 03/29/2019 0.83 0.70 - 1.40 mg/dL Final Creatinine (POCT) Date Value Ref Range Status 05/29/2019 0.90 0.7 - 1.4 mg/dL Final eGFR-All Other Races Date Value Ref Range Status 05/30/2019 >60 >60 . Final eGFR- Date Value Ref Range Status 05/30/2019 >60 >60 Final P.O.C.T. RESULTS: POC done: Yes, See Lab Tab June 15, 2020 Creatinine: 0.9 / GFR: 84.7 TREATMENT: N/A IV SITE: Ambulatory: A peripheral IV was started in the Right forearm with a Angio cath: 20 gauge. IV SITE APPEARANCE: Clean,Dry and Intact SIGNATURE: Laura Stone RN PATIENT NAME: Jossue Gil DATE: June 15, 2020 TIME: 2:50 PM Normal [facility] Encounters Encounter Date Encounter Type Care Provider Facility Start: 08-05-2023 Telephone encounter Diamond kumar MD Work Phone: [facility] Comment on above: Appointment Start: 06-24-2023 End: 06-24-2023 ambulatory GASAN NEMR Facility:[facility] Start: 06-24-2023 End: 06-24-2023 Patient encounter procedure Diamond Jean MD Work Phone: [facility] Comment on above: Severe episode of re current major depressive disorder, without psychotic features (HCC) (Primary Dx); Generalized anxiety disorder; PTSD (post-traumatic stress disorder); Alcohol use disorder in remission Start: 02-07-2023 End: 02-07-2023 ambulatory GASAN NEMR Facility:[facility] Start: 10-22-2022 End: 10-22-2022 ambulatory GASAN NEMR Facility:[facility] Start: 10-21-2022 Refill Diamond bell MD Work Phone: [facility] Comment on above: Refill Request (brian pro) Start: 08-27-2022 End: 08-27-2022 ambulatory GASRICARDO NEMR Facility:[facility] Start: 08-27-2022 End: 08-27-2022 Patient encounter procedure Diamond Jean MD Work Phone: [facility] Comment on above: Severe episode of re current major depressive disorder, without psychotic features (HCC) (Primary Dx); Generalized anxiety disorder; PTSD (post-traumatic stress disorder) Start: 06-05-2022 Refill Diamond bell MD Work Phone: [facility] Comment on above: Refill Request Start: 04-02-2022 End: 04-03-2022 [facility]ulatory [facility] Start: 03-05-2022 End: 03-05-2022 Patient encounter procedure Diamond Jean MD Work Phone: [facility] Comment on above: Severe episode of re current major depressive disorder, without psychotic features (HCC) (Primary Dx); PTSD (post-traumatic stress disorder); Generalized anxiety disorder Start: 02-20-2022 Chart abstracting Brooks navarro RN Work Phone: [facility] Comment on above: Outside Lab Results Start: 01-23-2022 Refill Diamond bell MD Work Phone: [facility] Comment on above: Refill Request Start: 01-22-2022 End: 01-22-2022 Patient encounter procedure Diamond Jean MD Work Phone: [facility] Comment on above: Severe episode of re current major depressive disorder, without psychotic features (HCC) (Primary Dx); Generalized anxiety disorder; PTSD (post-traumatic stress disorder); Unspecified severe protein-calorie malnutrition (HCC) Procedures Date Procedure Procedure Detail Performing Clinician Start: 10-16-2021 Hemoglobin A1c/Hemoglobin.total in Blood External Provider Start: 07-28-2018 Colonoscopy Diamond kumar MD Work Phone: Start: 07-02-2017 History of coronary artery bypass grafting S/P CABG (coronary artery bypass graft) Diamond Jean MD Work Phone: Plan of Treatment Date Care Activity Detail Author Start: 08-05-2025 PROSTATE CANCER SCREENING DISCUSSION PROSTATE CANCER SCREENING DISCUSSION [facility] Start: 10-12-2023 Influenza vaccination Influenz a Vaccine (Season Ended) [facility] Start: 08-05-2023 End: 08-05-2023 Patient encounter procedure 08/05/2023 2:30 PM EDT Office Visit [facility] [address], [place] [id number] Diamond Jean MD [address] [place] [address] follow up [facility] Comment on above: follow up Start: 07-29-2023 Colonoscopy COLONOSCOPY [facility] Start: 07-29-2023 COLORECTAL CANCER SCREENING COLORECTAL CANCER SCREENING [facility] Start: 07-29-2023 Screening for malign ant neoplasm of colon [facility] Start: 02-10-2023 Advance Directive Discussion Advance Directive Discussion [facility] Start: 10-11-2022 Covid-19 Vaccine () Covid-19 Vaccine () [facility] Start: 10-11-2022 Influenza vaccination C [facility] Start: 04-15-2022 Hemoglobin A1c measurement HbA1C [facility] Start: 04-15-2022 Hemoglobin A1c/Hemoglobin.total in Blood HBA1C [facility] Start: 02-10-2022 ADVANCE DIRECTIVE DISCUSSION ADVANCE DIRECTIVE DISCUSSION [facility] Start: 01-22-2022 End: 03-24-2022 25-hydroxyvitamin D3 [Mass/volume] in Serum or Plasma VITAMIN D 25 HYDROXY Lab Routine Severe episode of recurrent major depressive disorder, without psychotic features (HCC) Unspecified severe protein-calorie malnutrition (HCC) Expected: 01/22/2022, Expires: 03/24/[address] [facility] Work Phone: Comment on above: Expected: 01/22/2022 , Expires: 03/24/2022 Start: 01-22-2022 End: 03-24-2022 CBC panel - Blood by Automated count CBC Lab Routine Severe episode of recurrent major depressive disorder, without psychotic features (HCC) Expected: 01/22/2022 (Approximate), Expires: 03/24/[address] [facility] Work Phone: Comment on above: Expected: 01/22/2022 (Approximate), Expires: 03/24/2022 Start: 01-22-2022 End: 03-24-2022 Cobalamin (Vitamin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
--- NOTE | 2023-12-05 06:45 | ECHOCS_ITS ---
Reason For Study: CAD/ASHD Procedure This was a 2D Doppler, Color Flow transthoracic echocardiogram. The study was technically difficult. Contrast injection was performed. Exam performed in department. Left Ventricle Normal LV size. Mild concentric left ventricular hypertrophy. The left ventricular ejection fraction is 60 %. No evidence for diastolic dysfunction. Right Ventricle Normal right ventricle. Atria The left atrium is moderately enlarged. Normal right atrium. Mitral Valve Trivial mitral valve insufficiency. Tricuspid Valve Mild tricuspid valve insufficiency. Right ventricular systolic pressure estimated to be 51 mmHg. Aortic Valve Trisinus/trileaflet aortic valve. Aortic sclerosis, no stenosis. Mild (1+) aortic valve insufficiency. Pulmonic Valve Mild-Moderate (1-2+) pulmonic valve insufficiency. Great Vessels Normal sized aortic root. Pericardium/Pleural No pericardial effusion. Medication Diluted definity 2ml given slow IV push to enhance endocardial definition. MMode/2D Measurements & Calculations LVIDd: 4.4 cm IVSd: 1.0 cm Ao root diam: 3.5 cm LVIDs: 3.3 cm LVPWd: 1.2 cm FS: 26.0 % LAV(MOD-bp): 49.1 ml LVAd ap4: 25.6 cm2 SV(MOD-sp4): 50.1 ml LAV(MOD-bp) Indexed: 25.4 ml/m2 LVLd ap4: 6.8 cm SI(MOD-sp4): 25.9 ml/m2 LAV(MOD-sp2): 51.3 ml EDV(MOD-sp4): 77.1 ml LAV(MOD-sp4): 46.3 ml EDV(sp4-el): 81.6 ml LVAs ap4: 13.2 cm2 LVLs ap4: 5.3 cm ESV(MOD-sp4): 27.0 ml ESV(sp4-el): 27.8 ml EF(MOD-sp4): 64.9 % EF(sp4-el): 66.0 % SV(sp4-el): 53.9 ml LA A4 area: 18.5 cm2 LA dimension(2D): 4.8 cm RA A4 area: 17.2 cm2 Time Measurements MV dec time: 0.15 sec Doppler Measurements & Calculations MV E max franco: 85.6 cm/sec Lat Peak E' Franco: 9.6 cm/sec Med Peak E' Franco: 5.8 cm/sec MV A max franco: 54.9 cm/sec E/E' lat: 8.9 E/E' med: 14.8 MV E/A: 1.6 MV V2 max: 97.0 cm/sec MV dec slope: 571.1 cm/sec2 Ao V2 max: 134.6 cm/sec MV max P.8 mmHg Ao max P.2 mmHg MV V2 mean: 40.1 cm/sec Ao V2 mean: 85.2 cm/sec MV mean P.83 mmHg Ao mean P.5 mmHg MV V2 VTI: 32.2 cm Ao V2 VTI: 41.5 cm AV (velocity ratio): 0.82 LV V1 max: 98.9 cm/sec PA V2 max: 80.9 cm/sec PI end-d franco: 144.8 cm/sec LV V1 max P.9 mmHg PA V2 mean: 61.9 cm/sec LV V1 mean P.1 mmHg LV V1 mean: 68.8 cm/sec LV V1 VTI: 34.0 cm TR max franco: 339.7 cm/sec TR max P.2 mmHg ECHO/Echo Complete W/ Contrast Interpretation Summary Mild concentric left ventricular hypertrophy. The left ventricular ejection fraction is 60 %. The left atrium is moderately enlarged. Mild tricuspid valve insufficiency. Right ventricular systolic pressure estimated to be 51 mmHg. Aortic sclerosis, no stenosis. Mild (1+) aortic valve insufficiency. Mild-Moderate (1-2+) pulmonic valve insufficiency. Ordering Physician: Wily Reyna Referring Physician: Wily Reyna Performed By: Karyna Hogan RCS
--- NOTE | 2023-12-05 06:45 | US_ITS ---
INDICATION: CKD STAGE 3 EXAMINATION: Ultrasound US Kidney(s) complete (eg, kidneys and bladder) TECHNIQUE: Jackson scale and color doppler images were obtained of the kidneys. COMPARISON: FINDINGS: RIGHT KIDNEY: 9.7 x 5.0 x 4.8 cm. The cortex is 14 mm. There is no hydronephrosis. 7 mm nonobstructive stone. No focal lesion or perinephric collection is demonstrated. LEFT KIDNEY: 10.5 x 5.9 x 5.2 cm. The cortex is 14 mm. There is no hydronephrosis. No shadowing calculus, focal lesion or perinephric collection is demonstrated. URINARY BLADDER: 332 cc in volume. Borderline wall thickness. Nonvisualization of the ureteral jets. US/Kidney and Bladder IMPRESSION: Nonobstructive right renal stone. Electronically Signed: Saul Tilley DO at 20:11 EDT ,
--- NOTE | 2023-12-11 15:51 | STRESSREP ---
Stress Test Report Date: 12/05/2023 Procedure: Pharmacologic stress nuclear imaging study Indications: Chest pain Consent: Per the patient Procedure: The patient underwent pharmacologic (Regadenoson 0.4mg ) evaluation with a peak heart rate of 57 beats per minute (37%predicted maximal heart rate) and a peak blood pressure of 168/70 mmHg. The baseline ECG demonstrated sinus bradycardia with inferolateral ST changes. The peak pharmacologic ECG demonstrated no diagnostic changes secondary to baseline abnormality. There were no cardiac dysrhythmias pretest, during pharmacologic infusion, or recovery. There was no complaint of chest discomfort during pharmacologic infusion or recovery. The patient was injected with 9.5 millicuries of technetium 99m Cardiolite and subsequently rest SPECT Cardiolite nuclear imaging was obtained in the horizontal long, vertical long, and short axis views. The patient underwent pharmacologic (Regadenoson) evaluation. The patient was injected with 32.1 millicuries of technetium 99m Cardiolite and subsequently stress SPECT Cardiolite nuclear imaging was obtained in the horizontal long, vertical long, and short axis views. A gated Cardiolite study at peak stress was obtained. The examination was stopped secondary to completion of protocol. Rest and stress SPECT Cardiolite nuclear imaging status post realignment, normalization, and attenuation correction demonstrate small reversible perfusion defect of the inferior wall suggesting ischemia. There is end systolic thickening and brightening. The gated Cardiolite study demonstrates myocardial thickening and inward wall motion. The reported LVEF is 73%. Impression: 1. Pharmacologic (Regadenoson) evaluation 2. Peak pharmacologic ECG with no diagnostic changes secondary to baseline abnormality. 3. There were no cardiac dysrhythmias pretest, during pharmacologic infusion, or recovery. 5. Reversible ischemia in the inferior wall. 6. The gated Cardiolite study reports an LVEF of 73%. This note was generated with [employer] software. It may contain incorrect words, spelling, and punctuation that were not noted in checking the note before signing.
== END | disposition home or self-care (01) ==
LOC: CVS 06:37
PROVIDERS: PCP Internal Medicine; Referring Provider Internal Medicine Cardiovascular Disease; Visit Provider Internal Medicine Cardiovascular Disease
DX: N18.31 Chronic kidney disease, stage 3a (principal); I12.9 Hypertensive chronic kidney disease with stage 1 through stage 4 chronic kidney disease, or unspecified chronic kidney disease; R06.09 Other forms of dyspnea; R07.9 Chest pain, unspecified; I25.10 Atherosclerotic heart disease of native coronary artery without angina pectoris
CPT/HCPCS: 76770; 78452; 93017; 93306; A9500; Q9957; A4216; C8929; J2785

== ENCOUNTER 2023-12-16 11:53 | Observation (INO) | payer MEDICARE, SELFPAY ==
[2023-12-13 10:34] LABS: Absolute Neutrophil Count 2.3 X10^3/uL (2.0-7.7); Basophil# 0.02 X10^3/uL; Basophil% 0.4 % (0-1); Eosinophil# 0.09 X10^3/uL; Eosinophils% 1.7 % (0-5); Hematocrit 33.2 % (40-54); Hemoglobin 10.7 g/dL (13.0-16.5); Lymphocyte % 46.6 % (19-41); Mean Corp Hgb Conc 32.2 g/dL (32-36); Mean Corpuscular Hgb 30.1 pg (27.0-32.0); Mean Corpuscular Volume 93.5 fL (80-94); Mean Platelet Vol. 9.6 fl (6.2-12.0); Monocyte# 0.45 X10^3/uL; Monocyte% 8.4 % (0-10); NRBC Flagged by Analyzer 0 % (0-5); Neutrophil # 2.29 X10^3/uL (2.7-7.7); Neutrophil % 42.7 % (47-70); Platelet Count 200 K/mm3 (150-450); RBC Distribution Width SD 44.4 fl (35.1-43.9); Red Blood Count 3.55 M/mm3 (4.6-6.2); White Blood Count 5.4 K/mm3 (4.4-11.0)
[2023-12-13 10:43] LABS: International Normalized Ratio 0.9; Prothrombin Time (Protime)PT. 12.6 SECONDS (11.7-14.9)
[2023-12-13 11:01] LABS: Anion Gap 5 (5-15); BUN 27 mg/dL (7-18); BUN/Creat Ratio 20.3 RATIO (10-20); Calcium,Total 9.4 mg/dL (8.5-10.1); Chloride 108 mmol/L (98-107); Creatinine, Serum 1.33 mg/dL (0.70-1.30); EST Glomerular Filtration Rate 57 mL/min (>60); Est Glom Filt Rate - Afr Amer 69 mL/min (>60); Glucose 207 mg/dL (74-106); Potassium 4.3 mmol/L (3.5-5.1); Sodium Level 138 mmol/L (136-145)
--- NOTE | 2023-12-15 15:04 | PCM.HP.BLA ---
History and Physical Isaiah Garcia is a 68 year old gentleman that established with us in July of 2023. This gentleman has past medical history significant for coronary artery disease status post 5 vessel CABG in 2009 with BRADFORD to the LAD and vein grafts to the right PDA, right posterior lateral ventricular branch, obtuse marginal and diagonal. He also has history of hypertension, CVA and peripheral arterial disease. Patient had not followed up with cardiology in a long while. Per patient, for the last 6 months or so, he has been having anterior chest heaviness with exertion. This is relieved with rest. According to him, he goes to sleep when he has the chest discomfort and wakes up asymptomatic. According to him, the discomfort sometimes radiates into his left arm but not always. Positive associated shortness of breath. Denies any diaphoresis. Denies any rest symptoms. According to him, the symptoms have been more or less stable over the last 6 months with no recent deterioration. Denies any orthopnea. No paroxysmal nocturnal dyspnea. Denies any ankle edema. At his office visit Dr. Bose had discussed with patient about pursuing a diagnostic heart catheterization as he was concerned about his symptoms however patient declined and wanted to pursue a stress test first. He did undergo an echocardiogram in November 2023 which demonstrated an ejection fraction of 60%, left atrium moderately enlarged, RVSP 51 mmHg. Aortic sclerosis no stenosis, mild aortic valve insufficiency.Pharmacologic nuclear stress test demonstrated peak pharmacologic EKG with no diagnostic changes secondary to baseline abnormality. There is no cardiac dysrhythmias on pretest, during pharmacologic infusion or recovery. He did have reversibility of ischemia in the inferior wall. Because of this it did discuss with him about pursuing a diagnostic heart catheterization, patient was agreeable with this. PENDING SALE TO [facility] Medical History (Updated 07/22/23 @ 10:[address] Wily Reyna MD) CVA (cerebral vascular accident) Psychiatric disorder PAD (peripheral artery disease) Cataracts, both eyes Falls Neuropathy Depression CAD (coronary artery disease) Severe persistent asthma Pain in shoulder GERD (gastroesophageal reflux disease) Postnasal drip Hypothyroidism Type 2 diabetes mellitus without complication Hyperlipidemia Hypertension Surgical History (Updated 07/22/23 @ 10:[address] Wily Reyna MD) Hx of cardiac catheterization (~12/22/12) Hx of five vessel coronary artery bypass (~11/27/09) Family History Mother CAD (coronary artery disease) stent Cancer brain Diabetes Father Diabetes Cancer bone marrow Social History (Updated 07/22/23 @ 09:56 by Beverly Senior) Smoking Status: Never smoker alcohol intake: former substance use type: does not use caffeine: Yes Type: coffee Number of servings: 2 ROS Const Const: Positive for fatigue, weakness, headache(s) (increased in last couple of months) and daytime sleepiness; Negative for frequent falls, difficulty sleeping or excessive sweating Eyes Eyes: Negative for loss of peripheral vision, transient loss of vision, blurry vision, double vision or tunnel vision ENT ENT: Positive for headache(s) (increased in last couple of months), dizziness and balance problems; Negative for Nosebleed/epistaxis Cardio Chest Pain: Yes Frequency: weekly (3x/week) Character: other (pressure/heaviness) Onset: at rest and exercise Location: left chest Duration: minutes Relieving: rest Palpitations: Yes feels like its: skipping Edema: Bilateral Muscle aches with walking: None Resp Respiratory: Positive for SOB with activity; Negative for SOB at rest, SOB orthopnea\SOB lying down, Cough or paroxysmal nocturnal dyspnea GI GI: Positive for nausea and heartburn; Negative vomiting or black,tarry stools : Negative for hematuria Musc Musc: Positive for muscle weakness, joint pain and balance problems; Negative for muscle aches/ myalgia Skin Skin: Negative non-healing lesions, rash or unusual bruising Neuro Neuro: Positive for dizziness, lightheadedness, near syncope, syncope, headache(s) (increased in last couple of months) and weakness; Negative for frequent falls, blurry vision, double vision or lack of coordination Alexys Hematologic/Lymphatic: Negative for easy bleeding or easy bruising Endo Endo: Positive for fatigue; Negative for excessive sweating or increased thirst/drinking Psych Psych: Positive for anxiety, depression, thoughts of harming yourself and panic attacks Allergy Allergy/Immunology: Negative for hives and Negative for rash Cardiology Exam Const Appearance: comfortable and no acute distress Nutritional Appearance: well nourished Neck Neck: no JVD Carotids: Negative bruit Chest Auscultation: Bilateral: Clear to Auscultation Cardio Rate: regular rate Rhythm: regular rhythm Heart sounds: S1 normal and S2 normal Neuro General: patient alert, patient awake and patient oriented x3 Extremities Lower Extremity Edema: +1: Bilateral Assessment & Plan Assessment/Plan (1) Chest pain: (2) POLANCO (dyspnea on exertion): (3) History of coronary artery bypass graft: (4) Abnormal stress test: PLAN: Plan Patient is agreeable to pursue a diagnostic heart catheterization for his abnormal stress test. Follow-up will be based upon findings.
[2023-12-16] VITALS (7 sets, daily range): BP systolic 131–140; BP diastolic 45–47; PULSE 49–60; RESP 14–18; TEMP 36.2–36.8; O2SAT 95–98; BMI 32.2; BMI 32.1
--- NOTE | 2023-12-16 12:01 | PCM.DC ---
Discharge Instructions Diet Discharge Diet: 1999 Calorie Control Diet Activity Discharge Activity: Return to Normal Activity Lifting Restrictions: No heavy lifting, bending or strenuous physical activity for 1 week Dressing / Incision Call your doctor if your incision/area has: Continuous Slow Oozing, Sudden Increased Bleeding, Increased Pain/ Swelling, Increased Redness, Foul Smelling Discharge and Swelling at the incision site Call your doctor if you observe: Fever of 101 or Higher, Coldness, Increased Pain and Change in Color Follow Up Care Please Follow Up With: Wily Reyna MD When: 2-4 weeks Test Results: Test results from this visit will be discussed in further detail at your follow-up appointment, if applicable. Discharge Plan Admission Attending Provider: Wily Reyna Primary Care Provider: Juvencio Shrestha Consulting Providers: Susie Harley Instructions Print Language: Upper Sorbian Discharge Orders/Prescriptions Prescriptions: No Action amlodipine 5 mg tablet 5 mg PO DAILY Patient Comments: TAKE 1 TABLET BY MOUTH EVERY DAY lisinopril 20 mg tablet 20 mg PO BID Patient Comments: TAKE 1 TABLET BY MOUTH TWICE DAILY 90 aspirin 81 mg tablet,delayed release (DR/EC) 81 mg PO DAILY atorvastatin 40 mg tablet 40 mg PO QHS Patient Comments: TAKE 1 TABLET BY MOUTH EVERY DAY escitalopram oxalate 20 mg tablet 20 mg PO DAILY Patient Comments: Take 1 tablet by mouth once daily. gabapentin 400 mg capsule 400 mg PO QAM Patient Comments: Take 1 capsule by mouth once daily for 90 days. gabapentin 800 mg tablet 800 mg PO QHS Patient Comments: Take 1 tablet by mouth daily at bedtime for 90 days. mecobalamin (vitamin B12) 5,000 mcg tablet,disintegrating 5,000 mcg PO QWEEK cholecalciferol (vitamin D3) 1,250 mcg (50,000 unit) capsule 1,250 mcg PO QWEEK clopidogrel 75 mg tablet 75 mg PO DAILY Qty: 90 3RF isosorbide mononitrate 60 mg tablet extended release 24 hr 60 mg PO DAILY Qty: 90 3RF pantoprazole 40 mg tablet,delayed release (DR/EC) 40 mg PO DAILY Patient Comments: TAKE ONE TABLET BY MOUTH ONCE DAILY levothyroxine 112 mcg tablet 112 mcg PO DAILY Patient Comments: TAKE ONE TABLET BY MOUTH once DAILY IN THE MORNING on an empty stomach metoprolol tartrate 25 mg tablet 25 mg PO BID Patient Comments: TAKE ONE TABLET BY MOUTH TWICE A DAY WITH FOOD glimepiride 2 mg tablet 2 mg PO BID Referrals / Follow Up: Juvencio Shrestha MD [Primary Care Provider] - Disposition Disposition (needs filled in before D/C Order can be placed): Home, Self Care
[2023-12-16 12:04] LABS: ACT Activated Clotting Time 220 sec (74-137)
--- NOTE | 2023-12-16 12:04 | DCINST_ITS ---
Discharge Instructions Diet Discharge Diet: 2000 Calorie Control Diet Dressing / Incision Call your doctor if your incision/area has: Continuous Slow Oozing, Sudden Increased Bleeding, Increased Pain/ Swelling, Increased Redness, Foul Smelling Discharge and Swelling at the incision site Call your doctor if you observe: Fever of 101 or Higher, Coldness, Increased Pain and Change in Color Follow Up Care Please Follow Up With: Wily Reyna MD Test Results: Test results from this visit will be discussed in further detail at your follow- up appointment, if applicable. Discharge Plan Admission Attending Provider: Wily Reyna Primary Care Provider: Juvencio Shrestha Consulting Providers: Susie Harley Instructions Print Language: Finnish Discharge Orders/Prescriptions Prescriptions: No Action amlodipine 5 mg tablet 5 mg PO DAILY Patient Comments: TAKE 1 TABLET BY MOUTH EVERY DAY lisinopril 20 mg tablet 20 mg PO BID Patient Comments: TAKE 1 TABLET BY MOUTH TWICE DAILY 90 aspirin 81 mg tablet,delayed release (DR/EC) 81 mg PO DAILY atorvastatin 40 mg tablet 40 mg PO QHS Patient Comments: TAKE 1 TABLET BY MOUTH EVERY DAY escitalopram oxalate 20 mg tablet 20 mg PO DAILY Patient Comments: Take 1 tablet by mouth once daily. gabapentin 400 mg capsule 400 mg PO QAM Patient Comments: Take 1 capsule by mouth once daily for 90 days. gabapentin 800 mg tablet 800 mg PO QHS Patient Comments: Take 1 tablet by mouth daily at bedtime for 90 days. mecobalamin (vitamin B12) 5,000 mcg tablet,disintegrating 5,000 mcg PO QWEEK cholecalciferol (vitamin D3) 1,250 mcg (50,000 unit) capsule 1,250 mcg PO QWEEK clopidogrel 75 mg tablet 75 mg PO DAILY Qty: 90 3RF isosorbide mononitrate 60 mg tablet extended release 24 hr 60 mg PO DAILY Qty: 90 3RF pantoprazole 40 mg tablet,delayed release (DR/EC) 40 mg PO DAILY Patient Comments: TAKE ONE TABLET BY MOUTH ONCE DAILY levothyroxine 112 mcg tablet 112 mcg PO DAILY Patient Comments: TAKE ONE TABLET BY MOUTH once DAILY IN THE MORNING on an empty stomach metoprolol tartrate 25 mg tablet 25 mg PO BID Patient Comments: TAKE ONE TABLET BY MOUTH TWICE A DAY WITH FOOD glimepiride 2 mg tablet 2 mg PO BID Referrals / Follow Up: Juvencio Shrestha MD [Primary Care Provider] - Disposition Disposition (needs filled in before D/C Order can be placed): Home, Self Care
--- NOTE | 2023-12-16 12:20 | CL.I_ITS ---
Patient Name: JOSSUE GIL Study Date: 12/16/2023 Performing: Wily Reyna MD Ht: 65 inches 165.1 cm : 1955 Wt: 193.39 lbs 87.72 kg Age: 68 Gender: male BSA: 1.95 PROCEDURE(S) PERFORMED DC04-(02190)LHC/COR/CABG IC14-(85943/[id number])GRAFT-RIKKI AND/OR PTCA, SINGLE GRAFT CLINICAL PROFILE AND CO-MORBIDITIES Indications: Worsening Angina Heart Failure: None Stress/Imaging Stress Test w/SPECT MPI: Yes Result: Positive Intermediate Risk Stress Test with SPECT MPI: Positive Intermediate Risk Angina Classification Anginal Classification w/in 2 Weeks: CCS II CAD Presentations: Stable angina. CONCLUSIONS BRADFORD to LAD patent. Pala LAD severe diffuse disease distal to BRADFORD anastomosis SVG to D1 patent SVG to OM1 patent Severe dissuse disease seneca-cayuga RCA SVG to RPDA 95% Mid SVG to RPLV 100% Prox Successful RIKKI Mid SVG to RPDA using Samantha Cassia 3.0x8 mm RECOMMENDATIONS ASA Indefinitley P2Y12 inhibitors for atleast 6 months DESCRIPTION OF PROCEDURE The patient arrived to the procedure lab. The risks and benefits of the procedure as well as a full description of our services here and lack of surgical backup were fully explained to the patient and/or their significant other prior to the catheterization. The Timeout was completed, verifying the correct patient and procedure. The patient's procedural site was prepped and draped in the usual fashion. Local anesthetic was given subcutaneously to right radial region with Lidocaine 2%. Local anesthetic was given subcutaneously to right groin region with Lidocaine 2%. Local anesthetic was given subcutaneously to right groin region with Lidocaine 2%. Using a modified Seldinger technique, and ultrasound guidance,arterial access was obtained via the right femoral artery, with Micropuncture set. Left Coronary Artery selective angiography was performed in multiple views using a 5 Fr. JL4 catheter. Right Coronary Artery selective angiography was then performed in multiple views using a 5 Fr. JR 4 catheter. Saphenous Vein graft to the RPDA selective angiography was performed in multiple views using a 5 Fr. JR 4 catheter. Saphenous Vein graft to the DIAG 1 selective angiography was performed in multiple views using a 5 Fr. JR 4 catheter. Saphenous Vein graft to the OM 1 selective angiography was performed in multiple views using a 5 Fr. JR 4 catheter. Left internal mammary artery graft to the LAD selective angiography was performed in multiple views using a 5 Fr. IM catheterThe images were reviewed and options discussed. A decision was then made to proceed with an Intervention, IVUS or other adjunct procedure. MP1 Guide catheter was inserted and engaged into the SVG to the Rt PDA. {L1} RUNTHROUGH Guide wire was advanced to the Right PDA. SAMANTHA FRONTIER 3.0 X 8 Drug Eluting stent was inserted. Drug Eluting stent was advanced across the lesion in the graft to the Rt PDA. Angiogram performed post stent deployment. Angiogram performed post stent deployment. The arterial sheath was pulled and a Perclose closure device was deployed for hemostasis. The arterial sheath was pulled and a Perclose closure device was deployed for hemostasis CORONARY ANGIOGRAPHY DOMINANCE: Right Dominant LEFT MAIN: Tubular 50% Mid lesion in LMCA LEFT ANTERIOR DESCENDING ARTERY: LAD: Diffuse 100% Mid lesion in LAD RIGHT CORONARY ARTERY: RCA: Calcified 95% Ostial lesion in RCA Calcified 80% Mid lesion in RCA Calcified 99% Distal lesion in RCA GRAFTS: SVG Graft to RT PDA Tubular 95% lesion in SVG Graft to RT PDA DENNY Graft to RT LV-BR SVG Graft to RT LV-BR Diffuse 100% lesion in SVG Graft to RT LV-BR SVG Graft to MARG1 SVG Graft to DIAG1 BRADFORD Graft to LAD COLLATERAL FLOW: Collateral flow from RT PDA to MARG2 INTERVENTION INFORMATION LESION SITE: Vein > to Rt PDA Segment Number: 4-Right posterior descending artery segment - rPDA , Lesion Location: Body Lesion Complexity: High/C, lesion length: 6 mm Pre Stenosis: 95 % Pre intervention MÓNICA flow: 3 PROCEDURE: Drug Eluting Stent Post Stenosis: 0 % Post intervention MÓNICA flow: 3 Lesion Devices: Medtronic 6 Fr MP1 100cm Guide Catheter Terumo .014 180cm Runthrough Extra Floppy straight Medtronic 3.0 x 08 SAMANTHA FRONTIER RIKKI COMPLICATIONS No Complications PROCEDURE MEDICATIONS Fentanyl 50 mcg IV Versed 1 mg IV Versed 1 mg IV Fentanyl 50 mcg IV Oxygen: 2 L/min via nasal cannula Adenosine 24 mcg IC 12/16/2023 11:28:54 Adenosine 24 mcg IC @ 12/16/2023 11:28:54 Heparin 6000 unit(s) IV 12/16/2023 11:22:59 Nitro 100 mcg IC 12/16/2023 11:28:42 SUMMARY OF HEMODYNAMIC DATA Time AIR REST ECG 08:17:00 AO 131/56 (80) SA 11:05:57 AO 134/57 (81) 11:08:55 AO 149/56 (85) 11:19:08 AO 128/49 (78) 11:29:30 AO 158/55 (85) 11:33:26 ECG 12:10:16 AIR REST 12:14:08 Signed By Wily Reyna MD On 12/16/2023 12:20:06 Wily Reyna MD
[2023-12-16] MEDS: 0.9% Normal Saline (1000mL) 1,000 ML 150 ML IV (14:59)
[2023-12-16] MEDS: Glimepiride 2 MG Tablet PO (16:15)
[2023-12-16 17:07] LABS: Bedside Glucose 246 mg/dL (74-106)
[2023-12-16] MEDS: Metoprolol Tartrate 25 MG Tablet PO (21:17)
[2023-12-16] MEDS: Lisinopril 20 MG Tablet PO (21:17)
[2023-12-16] MEDS: Gabapentin 800 MG Tablet PO (21:17)
[2023-12-16] MEDS: Escitalopram Oxalate 20 MG Tablet PO (21:17)
[2023-12-16] MEDS: Atorvastatin Calcium 40 MG Tablet PO ×2 (21:17)
[2023-12-16 23:42] LABS: Bedside Glucose 280 mg/dL (74-106)
[2023-12-17 03:00] VITALS: BP 140/53; PULSE 50; RESP 12; TEMP 36.6; O2SAT 100
[2023-12-17 05:26] LABS: Hemoglobin 9.2 g/dL (13.0-16.5); Mean Corp Hgb Conc 31.7 g/dL (32-36); Mean Corpuscular Hgb 29.7 pg (27.0-32.0); Mean Corpuscular Volume 93.5 fL (80-94); Mean Platelet Vol. 10.2 fl (6.2-12.0); Platelet Count 176 K/mm3 (150-450); RBC Distribution Width CV 13.1 % (11.6-14.6); RBC Distribution Width SD 44.8 fl (35.1-43.9)
[2023-12-17] MEDS: Levothyroxine 112 MCG Tablet PO (06:02)
[2023-12-17 06:15] LABS: ALB/GLOB Ratio 1.1 RATIO (0.9-2.4); AST(SGOT) 8 U/L (15-37); Alanine Aminotransfer ALT/SGPT 16 U/L (16-61); Albumin, Serum 3.2 g/dL (3.2-5.0); Alkaline Phosphatase 45 U/L (45-117); Anion Gap 5 (5-15); BUN 23 mg/dL (7-18); BUN/Creat Ratio 17.8 RATIO (10-20); Calcium,Total 8.6 mg/dL (8.5-10.1); Chloride 107 mmol/L (98-107); Creatinine, Serum 1.29 mg/dL (0.70-1.30); EST Glomerular Filtration Rate 59 mL/min (>60); Est Glom Filt Rate - Afr Amer 71 mL/min (>60); Estimated Creatinine Clearance 55.74 ml/min; Glucose 310 mg/dL (74-106); Potassium 4.3 mmol/L (3.5-5.1); Protein, Total 6.2 g/dL (6.4-8.2); Sodium Level 135 mmol/L (136-145)
[2023-12-17 07:16] LABS: Bedside Glucose 266 mg/dL (74-106)
[2023-12-17 07:20] VITALS: O2SAT 98
[2023-12-17 08:34] VITALS: BP 177/50; PULSE 49; RESP 14; TEMP 37.1; O2SAT 100
--- NOTE | 2023-12-17 08:45 | EKG12_ITS ---
Test Reason : Blood Pressure : */* mmHG Vent. Rate : 53 BPM Atrial Rate : 53 BPM P-R Int : 200 ms QRS Dur : 84 ms QT Int : 460 ms P-R-T Axes : 60 19 199 degrees QTcB Int : 431 ms Sinus bradycardia T wave abnormality, consider inferolateral ischemia Abnormal ECG When compared with ECG of 16-Dec-2023 13:36, MANUAL COMPARISON REQUIRED DATA IS UNCONFIRMED Confirmed by AUTUMN VICTORIA, MANUEL ([id number]), visual effects editor CHATA CRAIG ([id number]) on 12/17/2023 1:19:15 PM Referred By: Wily Reyna Confirmed By: MANUEL LEYVA MD
[2023-12-17] MEDS: Lisinopril 20 MG Tablet PO (09:47)
[2023-12-17] MEDS: Glimepiride 2 MG Tablet PO (09:48)
[2023-12-17] MEDS: Aspirin E.C. 81 MG Tablet PO (09:48)
[2023-12-17] MEDS: Isosorbide Mononitrate 60 MG Tablet PO (09:48)
[2023-12-17 09:49] VITALS: PULSE 49
[2023-12-17] MEDS: Gabapentin 400 MG Capsule PO (09:49)
[2023-12-17] MEDS: Metoprolol Tartrate 25 MG Tablet PO (09:49)
[2023-12-17] MEDS: amLODIPine 5 MG Tablet PO (09:50)
[2023-12-17] MEDS: Clopidogrel Bisulfate 75 MG Tablet PO (09:50)
[2023-12-17] MEDS: Pantoprazole Sodium 40 MG Tablet PO (09:50)
[2023-12-17 11:25] VITALS: BP 172/51; PULSE 51; RESP 16; TEMP 36.6; O2SAT 100
--- NOTE | 2023-12-17 11:28 | EKG12_ITS ---
Test Reason : CP Blood Pressure : */* mmHG Vent. Rate : 49 BPM Atrial Rate : 49 BPM P-R Int : 188 ms QRS Dur : 78 ms QT Int : 454 ms P-R-T Axes : 61 9 222 degrees QTcB Int : [address] & T wave abnormality, consider inferolateral ischemia Abnormal ECG When compared with ECG of 17-Dec-2023 09:05, MANUAL COMPARISON REQUIRED DATA IS UNCONFIRMED Confirmed by Bill Tomlinson ([id number]), editor producer CHICO MONTES DE OCA ([id number]) on 12/18/2023 5:56:12 AM Referred By: Wily Reyna Confirmed By: Bill Tomlinson
[2023-12-17 11:34] LABS: Bedside Glucose 260 mg/dL (74-106)
--- NOTE | 2023-12-17 12:29 | CASEMGMT ---
Patient has order for discharge. RN CM in to discuss needs at discharge. Patient is independent in room. Patient denies needs or help at discharge. Patient had no further questions or concerns.
--- NOTE | 2023-12-17 13:06 | CRPH1.INSTRU ---
General Education Discussed with Patient CAD and cardiac anatomy and function:: Patient communicates acknowledgment Explanation of diagnoses and procedures:: Patient communicates acknowledgment Sign/Symptoms of [place]:: Patient communicates acknowledgment Antiplatelet therapy: Patient communicates acknowledgment Proper use of NTG-SL: Patient communicates acknowledgment Emergency procedures and activation of EMS: Patient communicates acknowledgment Compliance of all prescribed medications: Patient communicates acknowledgment Smoking Risk Factors Patient Nicotine/Smoking Risk Factors Are:: Cigarettes Recommendations Recommendations Include:: Previous smoker; encourage continued cessation Response Code Nicotine/Smoking Response Code:: Patient communicates acknowledgment Dyslipidemia Risk Factors Patient Dyslipidemia Risk Factors Are:: Total Cholesterol, Triglycerides, HDL and LDL Recommendations Recommendations Include:: Lipid profile not available, Reviewed NCEP/ATP guidelines and Therapeutic Lifestyle Change dietary guidelines Response Code Dyslipidemia Response Code:: Patient communicates acknowledgment Overweight/Obesity Risk Factors Patient Overweight/Obesity Risk Factors Are:: Obesity - > or = 30 Recommendations Recommendations Include:: Weight loss of 5-10%, Reduced calorie diet and Exercise 5-7 times/week Response Code Overweight/Obesity:: Patient communicates acknowledgment Hypertension Recommendations Recommendations Include:: Maintain BP <130/85, BP <130/80 if diabetic, DASH dietary guidelines, Decrease/maintain normal body weight and Moderation of ETOH Response Code Hypertension:: Patient communicates acknowledgment Heart Disease Risk Factors Patient Heart Disease Risk Factors Are:: Family history of heart disease < 65 years old and Previous cardiac event Recommendations Recommendations Include:: Educated family members of their risk and Educated family members of importance of prevention of heart disease Response Code Heart Disease Response Code:: Patient communicates acknowledgment Diabetes Risk Factors Patient Diabetes Risk Factors Are:: Elevated blood sugars and Post-op hyperglycemia Recommendations Recommendations Include:: Maintain fasting blood sugars 70-110 md/dL, Maintain HgbA1c of 6% or less, Monitor blood sugar as prescribed, Diabetic dietary guidelines and Decrease/maintain body weight Response Code Diabetes:: Patient communicates acknowledgment Metabolic Syndrome Risk Factors Patient Metabolic Syndrome Risk Factors Are [3 of 5]:: Fasting blood sugar > 100 mg/dL, Waist circumference > 35 [female] or 40 [male], High triglyceride >150, Hypertension and Low HDL <40 [male] or < 50 [female] Recommendations Recommendations Include:: Reinforce compliance to risk factor modifications, Patient is diabetic and Encouraged follow-up with Primary Care Physician Response Code Metabolic Syndrome Response Code:: Patient communicates acknowledgment Sedentary Risk Factors Patient Sedentary Risk Factors Are:: Lack of regular exercise Recommendations Recommendations Include:: Aerobic exercise 5-7 times/week for 20-30 minutes continuously, Benefits of regular exercise, Discussed home walking program and Monitored Outpatient Cardiac Rehab Response Code Sedentary Response Code:: Patient communicates acknowledgment Stress Risk Factors Patient Stress Risk Factors Are:: Patient denies stress as a risk factor Recommendations Recommendations Include:: Identification of stressors, and assessment of coping skills and Stress management techniques Response Code Stress Response Code:: Patient communicates acknowledgment
[2023-12-17 13:09] VITALS: BP 142/49; PULSE 52; RESP 16; TEMP 36.6; O2SAT 98
--- NOTE | 2023-12-18 09:18 | CRPHASE1 ---
Patient Communication Patient Information Former Patient:: Phase I PHII Cardiac Rehab Discussed with Patient:: Yes Guide to Cardiac Rehab Given to Patient:: Yes Cardiac Rehab Facility Choice List Given to Patient:: Yes Communication to Cardiac Rehab Associate Faculty:: Wily Reyna Sessions:: 36 sessions - 3 days/wk, 12 weeks Cardiac Rehabilitation Info Program Information Cardiac Rehabilitation Program Information: Cardiac Rehab The cardiac rehab team at [facility] consists of highly skilled exercise physiologists, nurses, respiratory therapists and physicians working together with you. Our purpose is to help you have a full recovery and achieve the goals you set for yourself. Over the years many of our patients have returned to activities they assumed they would never do again! We can help restore your confidence and motivation to make lifestyle changes that can have a significant impact on your health and quality of life! We can help answer questions and concerns you may have about exercise, lifestyle, medications, diet, stress and anxiety which are common following a hospitalization. WE monitor ECG and vital signs during exercise and discuss your progress with you and report to your physician(s). Cardiac Rehab is proven to help reduce readmissions, improve functional capacity and lower recurrence of problems with your heart. Our Cardiac Rehab program is Certified by the [place] [employer] (AACVPR) and Accredited by the [place] [employer] through our [facility]. You can contact us at . We invite you to call us with your questions or to get started in our program. If you have other questions or concerns be sure to ask your physician/provider during your follow-up visit. WE look forward to seeing you!
== END 2023-12-17 14:20 | disposition home or self-care (01) ==
LOC: CLSP 12:02 → PCU 14:22
PROVIDERS: Physician Assistant Medical; Admitting Provider Internal Medicine Cardiovascular Disease; PCP Internal Medicine; Referring Provider Internal Medicine Cardiovascular Disease; Visit Provider Internal Medicine Cardiovascular Disease
DX: I25.118 Atherosclerotic heart disease of native coronary artery with other forms of angina pectoris (principal); E11.51 Type 2 diabetes mellitus with diabetic peripheral angiopathy without gangrene; E11.40 Type 2 diabetes mellitus with diabetic neuropathy, unspecified; E78.5 Hyperlipidemia, unspecified; I10 Essential (primary) hypertension; R94.39 Abnormal result of other cardiovascular function study; Z95.1 Presence of aortocoronary bypass graft
CPT/HCPCS: 36415; 71046; 80048; 80053; 82962; 85025; 85027; 85347; 85610; 92937; 93005; 93455; 96360; 96361; 99152; 99153; 99221; C1894; J7030; J7040; J7050; Q9967; C1760; C1769; C1874; C1884; C1887; C9604; G0378; J0153

== ENCOUNTER → 2024-08-06 | Outpatient (CLI) | payer MEDICARE, SELFPAY ==
[2024-08-06 09:56] LABS: Bacteria 0 SEEN /hpf (None Seen); Mucous, Urine 0 SEEN /hpf (<or=2+); Red Blood Cells-Urine 0 SEEN /hpf (0-5); Squamous Epithelial Cells - UA 0 SEEN /hpf (0-5); White Blood Cells 0 SEEN /hpf (0-5)
[2024-08-06 12:49] LABS: Color, Urine Yellow (Yellow); Glucose, Dipstick 50 mg/dl (Normal); Ketone-Dipstick Negative (Negative); Leukocyte Esterase-Dipstick Negative /ul (Negative); Nitrite-Dipstick Negative (Negative); Occult Blood-Urine Negative /ul (Negative); Protein-Dipstick 15 mg/dl (Negative); Specific Gravity, Urine 1.015 (1.002-1.030); Urine Bilirubin Dipstick Negative (Negative); Urine Clarity Clear (Clear); Urine Urobilinogen Normal (Normal)
[2024-08-06 13:06] LABS: Erythrocyte Sedimentation Rate 11 mm/hr (0-20)
[2024-08-06 13:10] LABS: Absolute Neutrophil Count 2.2 X10^3/uL (2.0-7.7); Basophil# 0.02 X10^3/uL; Basophil% 0.4 % (0-1); Eosinophil# 0.15 X10^3/uL; Eosinophils% 3.1 % (0-5); Hematocrit 32.6 % (40-54); Hemoglobin 10.5 g/dL (13.0-16.5); Lymphocyte % 44.8 % (19-41); Mean Corp Hgb Conc 32.2 g/dL (32-36); Mean Corpuscular Hgb 29.7 pg (27.0-32.0); Mean Corpuscular Volume 92.1 fL (80-94); Mean Platelet Vol. 10.8 fl (6.2-12.0); Monocyte% 6.1 % (0-10); NRBC Flagged by Analyzer 0 % (0-5); Neutrophil # 2.23 X10^3/uL (2.7-7.7); Neutrophil % 45.4 % (47-70); Platelet Count 196 K/mm3 (150-450); RBC Distribution Width CV 12.9 % (11.6-14.6); RBC Distribution Width SD 42.9 fl (35.1-43.9); Red Blood Count 3.54 M/mm3 (4.6-6.2); White Blood Count 4.9 K/mm3 (4.4-11.0)
[2024-08-06 13:12] LABS: Hemoglobin A1c 13.1 % (<=5.6)
[2024-08-06 13:15] LABS: Microalbumin,Random Urine < 12.0 mg/L (NO RANGE EST.); Microalbumin:Creatinine Ratio UNABLE TO CALCULATE mg/g CRE
[2024-08-06 13:35] LABS: ALB/GLOB Ratio 1.4 RATIO (0.9-2.4); AST(SGOT) 13 U/L (<=37); Alanine Aminotransfer ALT/SGPT 12 U/L (<=46); Alkaline Phosphatase 60 U/L (40-129); Anion Gap 12 (5-15); BUN 27 mg/dL (4-19); BUN/Creat Ratio 19.6 RATIO (10-20); CRP < 3.00 mg/L (0.0-3.0); Calcium,Total 9.4 mg/dL (7.6-11.0); Chloride 107 mmol/L (98-108); Cholesterol 153 mg/dL (<=200); Creatinine, Serum 1.36 mg/dL (0.70-1.20); EST Glomerular Filtration Rate 56 (>60); Globulin 2.8 g/dL (2.2-4.2); Glucose 172 mg/dL (70-99); High Density Lipoprotein 40 mg/dL; Low Density Lipoprotein Calc. 89 mg/dL; PSA,Total- Diagnostic < 0.02 ng/mL (0.00-4.00); Potassium 4.6 mmol/L (3.3-5.1); Protein, Total 6.9 g/dL (5.9-8.4); Sodium Level 139 mmol/L (133-145); Thyroid Stim Hormone (TSH) 0.117 uIU/mL (0.300-4.200); Total Bilirubin 0.16 mg/dL (0.00-1.30); Triglycerides 120 mg/dL; Uric Acid 5.2 mg/dL (3.5-7.2); Very Low Density Lipoprotein 24 mg/dL (5-40); Vitamin B12 553 pg/mL (180-914); Vitamin D,25 Hydroxy 30.7 ng/mL (30-100); cholesterol:hdl ratio screen 3.85
[2024-08-10 16:08] LABS: Immunoglobulin A 387 mg/dL (61-437); Immunoglobulin G 912 mg/dL (603-1613); Immunoglobulin M 45 mg/dL (20-172)
== END | disposition home or self-care (01) ==
LOC: MTLAB 09:41
PROVIDERS: PCP Internal Medicine; Referring Provider Internal Medicine; Visit Provider Internal Medicine
DX: Z13.31 Encounter for screening for depression (principal); E11.22 Type 2 diabetes mellitus with diabetic chronic kidney disease; E11.40 Type 2 diabetes mellitus with diabetic neuropathy, unspecified; N18.32 Chronic kidney disease, stage 3b; I11.9 Hypertensive heart disease without heart failure; I25.10 Atherosclerotic heart disease of native coronary artery without angina pectoris; K21.9 Gastro-esophageal reflux disease without esophagitis; E55.9 Vitamin D deficiency, unspecified; F41.9 Anxiety disorder, unspecified; E78.5 Hyperlipidemia, unspecified; E03.9 Hypothyroidism, unspecified
CPT/HCPCS: 36415; 80053; 80061; 81001; 81002; 82043; 82306; 82570; 82607; 82746; 82784; 83036; 83735; 84153; 84439; 84443; 84550; 85025; 85652; 86140; 86334

== ENCOUNTER → 2025-01-05 | Outpatient (CLI) | payer MEDICARE, SELFPAY ==
[2025-01-05 11:30] LABS: Mucous, Urine 0 SEEN /hpf (<or=2+)
[2025-01-05 12:13] LABS: Hematocrit 32.2 % (40-54); Hemoglobin 10.7 g/dL (13.0-16.5); Immature Granulocytes Count 0.020 X10^3/uL (0.0-0.0); Mean Corp Hgb Conc 33.2 g/dL (32-36); Mean Corpuscular Volume 92.8 fL (80-94); Mean Platelet Vol. 10.1 fl (6.2-12.0); NRBC Flagged by Analyzer 0 % (0-5); Platelet Count 199 K/mm3 (150-450); RBC Distribution Width CV 13.0 % (11.6-14.6); RBC Distribution Width SD 44.1 fl (35.1-43.9); Red Blood Count 3.47 M/mm3 (4.6-6.2); White Blood Count 6.4 K/mm3 (4.4-11.0)
[2025-01-05 12:16] LABS: Color, Urine Yellow (Yellow); Glucose, Dipstick 100 mg/dl (Normal); Ketone-Dipstick Negative (Negative); Leukocyte Esterase-Dipstick 25 /ul (Negative); Nitrite-Dipstick Negative (Negative); Occult Blood-Urine 250 /ul (Negative); Protein-Dipstick 30 mg/dl (Negative); Specific Gravity, Urine 1.015 (1.002-1.030); Urine Bilirubin Dipstick Negative (Negative)
[2025-01-05 12:23] LABS: Red Blood Cells-Urine 10-25 SEEN /hpf (0-5); Squamous Epithelial Cells - UA 0-5 SEEN /hpf (0-5)
[2025-01-05 12:24] LABS: Transitional Epithelial - Ur 0-5 SEEN /hpf (0-5)
[2025-01-05 12:53] LABS: Creatinine, Urine (random) 151.00 mg/dL (39.00-259.00); Microalbumin,Random Urine 83.3 mg/L (<20 mg/L)
[2025-01-05 13:41] LABS: AST(SGOT) 14 U/L (<=37); Alanine Aminotransfer ALT/SGPT 11 U/L (<=46); Albumin, Serum 4.1 g/dL (3.4-4.8); Alkaline Phosphatase 60 U/L (40-129); Anion Gap 11 (5-15); BUN 23 mg/dL (4-19); BUN/Creat Ratio 17.4 RATIO (10-20); Calcium,Total 9.8 mg/dL (7.6-11.0); Carbon Dioxide 24.2 mmol/L (21.0-32.0); Chloride 102 mmol/L (98-108); Cholesterol 156 mg/dL (<=200); Globulin 3.0 g/dL (2.2-4.2); Glucose 211 mg/dL (70-99); Low Density Lipoprotein Calc. 86 mg/dL; Potassium 5.5 mmol/L (3.3-5.1); Triglycerides 105 mg/dL; Very Low Density Lipoprotein 21 mg/dL (5-40); Vitamin B12 583 pg/mL (180-914); Vitamin D,25 Hydroxy 34.8 ng/mL (30-100); cholesterol:hdl ratio screen 3.08
[2025-01-05 13:44] LABS: CRP < 3.00 mg/L (0.0-3.0); Magnesium 2.1 mg/dL (1.5-2.2)
== END | disposition home or self-care (01) ==
LOC: LAB 11:20
PROVIDERS: PCP Internal Medicine; Referring Provider Internal Medicine; Visit Provider Internal Medicine
DX: I11.9 Hypertensive heart disease without heart failure (principal); I50.9 Heart failure, unspecified; E11.8 Type 2 diabetes mellitus with unspecified complications; E03.9 Hypothyroidism, unspecified; E78.5 Hyperlipidemia, unspecified; R82.71 Bacteriuria; E55.9 Vitamin D deficiency, unspecified
CPT/HCPCS: 36415; 80053; 80061; 81001; 82043; 82306; 82570; 82607; 83036; 83735; 84439; 84443; 85025; 85652; 86140; 87086; 87088

== ENCOUNTER → 2025-01-15 | Outpatient (CLI) | payer MEDICARE, SELFPAY ==
[2025-01-15 11:36] LABS: Mucous, Urine 0 SEEN /hpf (<or=2+); Red Blood Cells-Urine 0 SEEN /hpf (0-5); Squamous Epithelial Cells - UA 0 SEEN /hpf (0-5)
--- OUTSIDE RECORDS SUMMARY | 2025-01-15 11:37 | XMS RPT_ITS | CCD ---
Author Organization [facility] CliniSyms Care Team Providers Care Hooking Machine Operator Name Role Phone Juvencio Shrestha MD Primary Care Provider [phone] Thony Walls MD Unavailable [phone] GABBY OSBORN Referring Unavailable NEMR, GASAN Primary Care Unavailable Thony Walls MD Unavailable [phone] Juvencio Shrestha MD Primary Care Provider NEMR, GASAN Primary Care Unavailable GERMAN MARCUM Attending Unavailable NEMR, GASAN Referring Unavailable NEMR, GASAN Primary Care Unavailable CATHERINE JEAN Attending Unavailable NEMR, GASAN Primary Care Unavailable CATHERINE JEAN Attending Unavailable NEMR, GASAN Primary Care Unavailable CATHERINE JEAN Attending Unavailable Nemr Dr. Juvencio VICTORIA Primary Care Provider Dr. Juvencio Shrestha MD Attending Provider [phone] Dr. Juvencio Shrestha MD Referring Provider [phone] Katelyn Saeed Attending Unavailable Nemr, Gasan Primary Care Unavailable Katelyn Saeed Consulting Unavailable Axel, Wily Attending Unavailable Axel, Wily Referring Unavailable Nemr, Gasan Primary Care Unavailable Axel, Wily Attending Unavailable Axel, Wily Admitting Unavailable Axel, Wily Referring Unavailable Nemr, Gasan Primary Care Unavailable Susie Harley Consulting Unavailabl Katelyn Go Attending Unavailable Nemr, Gasan Primary Care Unavailable Axel, Wily Consulting Unavailable Nemr, Gasan Primary Care Unavailable Susie Harley Referring Unavailabl Susie Rangel Attending Unavailabl e Axel, Wily Attending Unavailable Nemr, Gasan Primary Care Unavailable Axel, Wily Referring Unavailable Nemr, Gasan Primary Care Unavailable Harpreet Vizcaino Attending Unavailable Axel, Wily Attending Unavailable Axel, Wily Referring Unavailable Nemr, Gasan Primary Care Unavailable Axel, Wily Attending Unavailable Nemr, Gasan Primary Care Unavailable Nemr, Gasan Primary Care Unavailable Beverly Ramirez Attending Unavailable Katelyn Saeed Consulting Unavailable Axel, Wily Attending Unavailable Axel, Wily Referring Unavailable Nemr, Gasan Primary Care Unavailable Axel, Wily Consulting Unavailable Axel, Wily Referring Unavailable Axel, Wily Attending Unavailable Nemr, Gasan Primary Care Unavailable Daniel Clifford Attending Unavailable Nemr, Gasan Primary Care Unavailable Nemr, Gasan Primary Care Unavailable Nemr, Gasan Referring Unavailable Nemr, Gasan Attending Unavailable Allergies Allergy Classification Reported Allergen(s) Allergy Type Date of Onset Reaction(s) Facility (12 sources) ELASTIC; Translations: [ELASTIC] Allergy to substance 0 Rash [facility] (1 source) MYOCIN Allergy to substance 2 [facility] Work Phone: (11 sources) Azithromycin; Translations: [AZITHROMYCIN] Drug Allergy 6 Other: See Comments [facility] (20 sources) Erythromycin; Translations: [ERYTHROMYCIN] Drug Allergy 0 Vomiting, Other: See Comments [facility] (3 sources) ERYTHROMYCIN BASE; Translations: [ERYTHROMYCIN BASE] Propensity to adverse reactions to drug (disorder) 8 [facility] Other [place] (4 sources) Chondroitin 4-Sulfate Drug Allergy 3 [facility] (4 sources) hyaluronate Drug Allergy 3 [facility] (1 source) hyaluronate Drug Allergy 4 [facility] Repository (1 source) chondroitin sulfate A Drug allergy (disorder) 4 [facility] Repository Medications Current Medications Medication Drug Class(es) Dates Sig (Normalized) Sig (Original) amLODIPine 5 mg oral tablet (11 sources) Dihydropyridine Calcium Channel Memo Start: 06-07-2020 take 1 tablet by mouth once daily Amlodipine 5 mg tablet Active 5 mg PO DAILY February 28, 2023 1:00am Comment on above: Take 1 tablet by janet once daily. aspirin 81 mg delayed release oral tablet (16 sources) Platelet Aggregation Inhibitor, Nonsteroidal Anti-inflammatory Drug Start: 02-28-2023 take 1 tablet by mouth once daily Aspirin 81 mg tablet,delayed release (DR/EC) Active 81 mg PO DAILY February 28, 2023 1:00am Start: 04-12-2021 End: 02-28-2023 take 1 capsule by mouth once daily Aspirin 81 mg Capsule Discontinued 81 mg PO DAILY April 12, 2021 1:00am February 28, 2023 5:39pm Comment on above: Take one(1) tablet d aily. atorvastatin 40 mg oral tablet (16 sources) HMG-CoA Reductase Inhibitor Start: take 1 tablet by mouth at bedtime Atorvastatin 40 mg tablet Active 40 mg PO AT BEDTIME February 28, 2023 1:00am Start: 04-12-2021 End: 02-28-2023 Atorvastatin 80 mg tablet Discontinued 40 mg PO DAILY April 12, 2021 1:00am February 28, 2023 5:40pm Start: 04-12-2021 End: 02-28-2023 take 40 mg by mouth once daily Atorvastatin Discontinu ed 40 MG PO DAILY April 12, 2021 1:00am February 28, 2023 5:40pm Start: 03-12-2021 take 1 tablet by janet th once daily atorvastatin (LIPITOR) 80 mg tablet TAKE ONE TABLET BY MOUTH EVERY DAY 90 tablet 2 03/12/2021 Active Comment on above: TAKE ONE TABLET BY M OUTH EVERY DAY cholecalciferol 1.25 mg oral capsule (2 sources) Vitamin D Start: 02-28-19 24 take 1 capsule by mouth every week Cholecalciferol (Vitamin D3) 1,250 mcg (50,000 unit) capsule Active 1250 ug PO EVERY WEEK February 28, 2023 1:00am clopidogrel 75 mg oral tablet (1 source) P2Y12 Platelet Inhibitor Start: 07-22-19 24 take 1 tablet by mouth once daily Clopidogrel 75 mg tablet Active 75 mg PO DAILY 90 3 July 22, 2023 12:00am clotrimazole 10 mg oral lozenge (9 sources) Azole Antifungal Start: 11-15-19 21 clotrimazole (MYCELEX) 10 mg emil Indications: Oral ashlyn Use 1 Emil as instructed five times daily. 50 Emil 0 11/14/2020 Active Comment on above: Use 1 Emil as inst ructed five times daily. cyanocobalamin, vitamin B-12, (VITAMIN B-12 ORAL) (9 sources) cyanocobalamin, vitamin B-12, (VITAMIN B-12 ORAL) Take by mouth. 0 Active Comment on above: Take by mouth. ergocalciferol, vitamin D2, (VITAMIN D2 ORAL) (9 sources) ergocalciferol, vitamin D2, (VITAMIN D2 ORAL) Take by mouth. 0 Active Comment on above: Take by mouth. escitalopram 20 mg oral tablet (15 sources) Serotonin Reuptake Inhibitor Start: 02-07-20 End: 12-21-19 take 1 tablet by mouth once daily Escitalopram Oxalate 20 mg tablet Active 20 mg PO DAILY February 28, 2023 1:00am Start: 07-02-2022 End: 01-19-2023 take 1 tablet [...] take 1 capsule by mouth once daily in the morning Gabapentin 400 mg capsule Active 400 mg PO EVERY MORNING February 28, 2023 1:00am Start: 10-22-2022 End: 12-21-2023 take 1 tablet by mouth at bedtime Gabapentin 800 mg tablet Active 800 mg PO AT BEDTIME February 28, 2023 1:00am Start: 08-27-2022 End: 11-25-2022 take 1.5 tablets [...] Start: 07-13-2020 take 1 capsule by mo [facility] once daily gabapentin (NEURONTIN) 400 mg capsule Take 400 mg by mouth once daily. 0 07/13/2020 Active Start: 07-04-2020 take 1 capsule by mo ut every twelve hours gabapentin (NEURONTIN) 100 mg capsule Take 100 mg by mouth q 12 HR. 0 07/04/2020 Active Comment on above: Take 100 mg by mouth q 12 HR. Take 400 mg by mouth once daily. Take 1 tablet by janet daily at bedtime for 90 days. Take 1 capsule by mo ut twice daily as needed for up to 90 days. Take 1.5 tablets by mouth daily at bedtime for 90 days. Take 1 capsule by mo ut twice daily as needed for up to 30 days. glimepiride 2 mg oral tablet (1 source) Sulfonylurea Start: 12-16-19 24 take 1 tablet by mouth twice daily Glimepiride 2 mg tablet Active 2 mg PO TWICE A DAY December 16, 2023 1:00am 24 hr isosorbide mononitrate 60 mg extended release oral tablet (1 source) Nitrate Vasodilator Start: 07-22-19 24 take 1 tablet by mouth once daily, then take 1 tablet by mouth every twenty-four hours Isosorbide Mononitrate 60 mg tablet extended release 24 hr Active 60 mg PO DAILY 90 July 22, 2023 12:00am levothyroxine sodium 0.112 mg oral tablet (14 sources) l-Thyroxine Start: 04-13-19 22 take 1 tablet by mouth once daily Levothyroxine 112 mcg tablet Active 112 ug PO DAILY April 12, 2021 1:00am Comment on above: Take 112 mcg by mout h daily before breakfast. lisinopril 20 mg oral tablet (11 sources) Angiotensin Converting Enzyme Inhibitor Start: 05-31-19 20 take 1 tablet by mouth twice daily Lisinopril 20 mg tablet Active 20 mg PO TWICE A DAY February 28, 2023 1:00am Comment on above: Take 1 tablet by janet th twice daily. meclizine hydrochloride 25 mg oral tablet (9 sources) Antiemetic Start: 09-14-19 take 1 tablet by mouth every eight hours as needed meclizine (ANTIVERT) 25 mg tab Take 1 tablet by mouth three times daily as needed (dizziness). for dizziness. 90 tablet 5 09/14/2019 Active Comment on above: Take 1 tablet by janet th three times daily as needed (dizziness). for dizziness. mecobalamin 5 mg disintegrating oral tablet (2 sources) Start: 02-28-19 take 1 tablet by mouth every week Mecobalamin (Vitamin B12) 5,000 mcg tablet,disintegrating Active 5000 ug PO EVERY WEEK February 28, 2023 1:00am metoprolol tartrate 25 mg oral tablet (14 sources) beta-Adrenergic Memo Start: 04-13-19 22 take 1 tablet by mouth twice daily Metoprolol Tartrate 25 mg tablet Active 25 mg PO TWICE A DAY April 12, 2021 1:00am Comment on above: Take 25 mg by mouth twice daily. pantoprazole 40 mg delayed release oral tablet (14 sources) Proton Pump Inhibitor Start: 07-04-19 21 take 1 tablet by mouth once daily Pantoprazole 40 mg tablet,delayed release (DR/EC) Active 40 mg PO DAILY April 12, 2021 1:00am Comment on above: TAKE ONE TABLET BY M OUT ONCE DAILY Completed/Discontinued Medications Medication Drug Class(es) Dates Sig (Normalized) Sig (Original) glipiZIDE 5 mg oral tablet (14 sources) Sulfonylurea Start: 04-12-2021 End: 02-28-2023 take 2 tablets by mouth twice daily Glipizide 5 mg tablet Discontinued 10 mg PO TWICE A DAY April 12, 2021 1:00am February 28, 2023 5:42pm Start: 04-12-2021 End: 02-28-2023 take 10 mg by mouth twice daily Glipizide Discontinued 10 MG PO TWICE A DAY April 12, 2021 1:00am February 28, 2023 5:42pm Start: 05-31-2019 take 3 tablets by [facility] twice daily glipiZIDE (GLUCOTROL) 5 mg tablet Take 3 tablets by mouth twice daily. 180 tablet 0 05/31/2019 Active Comment on above: Take 3 tablets by mo [facility] twice daily. hydroCHLOROthiazide 12.5 mg oral tablet (1 source) Thiazide Diuretic Star t: 07-11 24 End: 06-29 take 1 tablet by mouth once daily in the morning Hydrochlorothiazide 12.5 mg tablet Discontinued 12.5 mg PO EVERY MORNING July 22, 2023 12:00am December 16, 2023 9:05am iv contrast (will be provided with radiology test) (9 sources) Star t: 05-12 inject 1 dose intravenously once iv contrast [...] in the CT contrast administration guidelines link. metFORMIN hydrochloride 500 mg oral tablet (14 sources) Biguanide Star t: 04-29 End: 11-12 take 1 tablet by mouth twice daily Metformin 500 mg tablet Discontinued 500 mg PO TWICE A DAY April 12, 2021 1:00am December 11, 2023 4:29pm Comment on above: Take 500 mg by mouth twice daily with meals. sucralfate 1000 mg oral tablet (5 sources) Aluminum Complex Star t: 04-29 22 End: 02-10 take 1 tablet by mouth every eight hours Sucralfate 1 gram tablet Discontinued 1 g PO EVERY 8 HOURS April 12, 2021 1:00am February 28, 2023 5:42pm Problems Active Problems Problem Classification Problem Date [...] Translations: [Generalized anxiety disorder] Onset: 01-22-2022 Chronic Cardiac dysrhythmias (1 source) Bradycardia; Translations: [Bradycardia, unspecified] 07-22-2023 Episodic Chronic kidney disease (2 sources) Chronic kidney disease; Translations: [Chronic kidney disease, stage 3a] Onset: 12-29-2023 Conditions associated with dizziness or vertigo (1 source) Loss of equilibrium; Translations: [Dizziness and giddiness] 07-31-2023 Episodic Congestive heart failure; nonhypertensive (9 sources) Congestive heart failure; Translations: [Heart failure, unspecified] Onset: 12-08-2009 03-29-2019 Chronic Coronary atherosclerosis and other heart disease (13 sources) Coronary atherosclerosis; Translations: [Atherosclerotic heart disease of [place] coronary artery without angina pectoris] Onset: 07-02-2017 07-02-2017 Chronic Coronary atherosclerosis and other heart disease (2 sources) Stented coronary artery; Translations: [Presence of coronary angioplasty implant and graft] Onset: 12-16-2023 12-16-2023 Episodic Comment on above: RIKKI to mid SVG to RP DA using [place] Frontier3.0 X 8mm 12/16/23 Deficiency and other anemia (1 source) Anemia in other chronic diseases classified elsewhere; Translations: [Anemia in other chronic diseases classified elsewhere] Onset: 03-15-2024 Chronic Diabetes mellitus with complications (10 sources) Type 2 diabetes mellitus; Translations: [Type 2 diabetes mellitus with diabetic polyneuropathy] Onset: 03-29-2019 03-29-2019 Chronic Diabetes mellitus without complication (1 source) Diabetes mellitus; Translations: [Type 2 diabetes mellitus without complications] 07-22-2023 Chronic Disorders of lipid metabolism (12 sources) Pure hypercholesterolemia; Translations: [Pure hypercholesterolemia, unspecified] Onset: 01-05-2018 01-05-2018 Chronic Essential hypertension (12 sources) Essential hypertension; Translations: [Essential (primary) hypertension] Onset: 01-05-2018 01-05-2018 Chronic Headache; including migraine (1 source) Migraine without aura; Translations: [Migraine without aura, not intractable, without status migrainosus] 07-31-2023 Chronic Mood disorders (14 sources) Severe recurrent major depression without psychotic features; Translations: [Major depressive disorder, recurrent severe without psychotic features] Onset: 01-22-2022 Chronic Nonspecific chest pain (9 sources) Chest pain; Translations: [Chest pain, unspecified] Onset: 09-02-2024 04-21-2021 Episodic Nutritional deficiencies (6 sources) Deficiency of macronutrients; Translations: [Unspecified severe protein-calorie malnutrition] Onset: 04-02-2022 Chronic Other and ill-defined cerebrovascular disease (9 sources) Cerebrovascular disease; Translations: [Cerebrovascular disease, unspecified] Onset: 03-29-2019 03-29-2019 Chronic Other circulatory disease (1 source) History of cerebrovascular accident; Translations: [Personal history of transient ischemic attack (TIA), and cerebral infarction without residual deficits] 07-31-2023 Episodic Other connective tissue disease (5 sources) Pain in left arm; Translations: [Pain in left arm] 04-21-2021 Episodic Other hematologic conditions (1 source) History of anemia; Translations: [Personal history of diseases of the blood and blood-forming organs and certain disorders involving the immune mechanism] 07-31-2023 Episodic Other hereditary and degenerative nervous system conditions (1 source) Impaired cognition; Translations: [Mild cognitive impairment, so stated] 07-31-2023 Chronic Other lower respiratory disease (1 source) Dyspnea on exertion; Translations: [Other forms of dyspnea] 07-22-2023 Episodic Other lower respiratory disease (1 source) Other forms of dyspnea; Translations: [Other forms of dyspnea] Onset: 09-02-2024 Episodic Other nervous system disorders (10 sources) Polyneuropathy; Translations: [Polyneuropathy, unspecified] Onset: 03-29-2019 03-29-2019 Chronic Other nervous system disorders (1 source) Abnormal gait; Translations: [Unspecified abnormalities of gait and mobility] 07-31-2023 Episodic Other screening for suspected conditions (not mental disorders or infectious disease) (1 source) Abnormal findings on diagnostic imaging of other specified body structures; Translations: [Abnormal findings on diagnostic imaging of other specified body structures] Onset: 09-02-2024 Chronic Other screening for suspected conditions (not mental disorders or infectious disease) (2 sources) Cardiovascular stress test abnormal; Translations: [Abnormal result of other cardiovascular function study] Onset: 09-02-2024 12-15-2023 Episodic Peripheral and visceral atherosclerosis (2 sources) Peripheral vascular disease, unspecified; Translations: [Peripheral arterial disease] 02-28-2023 Chronic Screening and history of mental health and substance abuse codes (1 source) Encounter for screening for depression; Translations: [Encounter for screening for depression] Onset: 08-11-2024 Episodic Spondylosis; intervertebral disc disorders; other back problems (3 sources) Lumbar radiculopathy; Translations: [Radiculopathy, lumbar region] 07-31-2023 Episodic Past or Other Problems Problem Classification Problem Date Documented Da te Episodic/Chronic E Codes: Fall (2 sources) Fall; Translations: [Unspecified fall, initial encounter] Onset: 02-07-2023 02-07-2023 Episodic Other nervous system disorders (1 source) Paresthesia of skin; Translations: [Paresthesia of skin] Onset: 08-31-2023 Episodic Results Test Name Value Interpretation Reference Range Facility Immunofixation, Serumon 07-0 CHRISTEN RESULT,S Comment Normal . [facility] Comment on above: Result Comment: No m onoclonality detected. Performed By: #### L 503.0106, L506.0400, L3200.1275, L400.0001, L101.9900, L100.0100, L501.9985, L502.0250, L506.0200, L500.4050, L506.1001, L500.4100, L501.1400, L501.5200, L501.6710, L501.9520, L501.9940 ####[facility] [id number] [place], [place], [id number] IMMUNOGLOB A QN 387 mg/dL Normal 61-437 [facility] Comment on above: Performed By: #### L 503.0106, L506.0400, L3200.1275, L400.0001, L101.9900, L100.0100, L501.9985, L502.0250, L506.0200, L500.4050, L506.1001, L500.4100, L501.1400, L501.5200, L501.6710, L501.9520, L501.9940 ####[facility] [id number] [place], [place], [id number] IMMUNOGLOB G QN 912 mg/dL Normal 603-1613 [facility] Comment on above: Performed By: #### L 503.0106, L506.0400, L3200.1275, L400.0001, L101.9900, L100.0100, L501.9985, L502.0250, L506.0200, L500.4050, L506.1001, L500.4100, L501.1400, L501.5200, L501.6710, L501.9520, L501.9940 ####[facility] [id number] [place], [place], [id number] IMMUNOGLOB M QN 45 mg/dL Normal 20-172 [facility] Comment on above: Result Comment: Perf ormed at: - [facility] [id number] Chairman President And Chief Executive Officer: Luisito Guadarrama PhD, Phone: [phone] Performed By: #### L 503.0106, L506.0400, L3200.1275, L400.0001, L101.9900, L100.0100, L501.9985, L502.0250, L506.0200, L500.4050, L506.1001, L500.4100, L501.1400, L501.5200, L501.6710, L501.9520, L501.9940 ####[facility] [id number] [place], [address] Absolute lymphocyte countOrd ered By: Juvencio Nemr on 08-06-2024 Lymphocytes Auto (Unsp spec) [#/Vol] 2.20 10*3/uL 0.83-4.51 [facility] Absolute neutrophil countOrd ered By: [facility] Nemr on 08-06-2024 Neutrophils (Bld) [#/Vol] 2.2 10*3/uL 2.0-7.7 [facility] Anion gap in Serum or Plasma Ordered By: Sulligentnan Nemr on 08-06-2024 Anion gap [Moles/Vol] 12 mmol/L 5-15 [facility] Automated lymphocyte count a s percentage of total leukocytesOrdered By: Sulligentnan Nemr on 08-06-2024 Lymphocytes/100 WBC Auto (Unsp spec) 44.8 % High 19-41 [facility] BUN/creatinine ratioOrdered By: Sulligentnan Blandr on 08-06-2024 Urea nitrogen/Creatinine [Mass ratio] 19.6 mg/mg 10-20 [facility] Basophil percentageOrdered B y: Juvencio Blandr on 08-06-2024 Basophils/100 WBC (Bld) 0.4 % 0-1 [facility] Bilirubin Test strip Ql (U)O rdered By: Juvencio Blandr on 08-06-2024 Bilirubin Ql (U) Negative Negative [facility] Bilirubin, totalOrdered By: [facility] Baldor on 08-06-2024 Bilirubin [Mass/Vol] 0.16 mg/dL 0.00-1.30 [facility] CBC W/Diff, Automatedon 07-12 Absolute Lymph 2.20 X10 3/uL Normal 0.83-4.51 [facility] Comment on above: Performed By: #### L 503.0106, L506.0400, L3200.1275, L400.0001, L101.9900, L100.0100, L501.9985, L502.0250, L506.0200, L500.4050, L506.1001, L500.4100, L501.1400, L501.5200, L501.6710, L501.9520, L501.9940 #### [facility] [address] [place], [address] Absolute Neut 2.2 X10 3/uL Normal 2.0-7.7 [facility] Comment on above: Performed By: #### L 503.0106, L506.0400, L3200.1275, L400.0001, L101.9900, L100.0100, L501.9985, L502.0250, L506.0200, L500.4050, L506.1001, L500.4100, L501.1400, L501.5200, L501.6710, L501.9520, L501.9940 #### [facility] [address] [place], [address] Basophils/100 WBC (Bld) 0.4 % Normal 0-1 [facility] Comment on above: Performed By: #### L 503.0106, L506.0400, L3200.1275, L400.0001, L101.9900, L100.0100, L501.9985, L502.0250, L506.0200, L500.4050, L506.1001, L500.4100, L501.1400, L501.5200, L501.6710, L501.9520, L501.9940 #### [facility] [address] [place], [address] Eosinophils/100 WBC (Bld) 3.1 % Normal 0-5 [facility] Comment on above: Performed By: #### L 503.0106, L506.0400, L3200.1275, L400.0001, L101.9900, L100.0100, L501.9985, L502.0250, L506.0200, L500.4050, L506.1001, L500.4100, L501.1400, L501.5200, L501.6710, L501.9520, L501.9940 #### [facility] [address] [facility] [place], [place], [id number] Erythrocyte distribution width (RBC) [Ratio] 12.9 % Normal 11.6-14.6 [facility] Comment on above: Performed By: #### L 503.0106, L506.0400, L3200.1275, L400.0001, L101.9900, L100.0100, L501.9985, L502.0250, L506.0200, L500.4050, L506.1001, L500.4100, L501.1400, L501.5200, L501.6710, L501.9520, L501.9940 #### [facility] [address] [facility] [place], [address] Hematocrit (Bld) [Volume fraction] 32.6 % Low 40-54 [facility] Comment on above: Performed By: #### L 503.0106, L506.0400, L3200.1275, L400.0001, L101.9900, L100.0100, L501.9985, L502.0250, L506.0200, L500.4050, L506.1001, L500.4100, L501.1400, L501.5200, L501.6710, L501.9520, L501.9940 #### [facility] [address] [facility] [place], [address] Hemoglobin (Bld) [Mass/Vol] 10.5 g/dL Low 13.0-16.5 [facility] Comment on above: Performed By: #### L 503.0106, L506.0400, L3200.1275, L400.0001, L101.9900, L100.0100, L501.9985, L502.0250, L506.0200, L500.4050, L506.1001, L500.4100, L501.1400, L501.5200, L501.6710, L501.9520, L501.9940 #### [facility] [address] [place], [address] IG% 0.200 Normal 0.0-0.9 [facility] Comment on above: Result Comment: IG% - Immature Granulocytes (promyelocytes, myelocytes and metamyelocytes) > 1% indicates that a LEFT SHIFT is Present. Performed By: #### L 503.0106, L506.0400, L3200.1275, L400.0001, L101.9900, L100.0100, L501.9985, L502.0250, L506.0200, L500.4050, L506.1001, L500.4100, L501.1400, L501.5200, L501.6710, L501.9520, L501.9940 #### [facility] [address] [place], [address] Lymphocytes/100 WBC (Bld) 44.8 % High 19-41 [facility] Comment on above: Performed By: #### L 503.0106, L506.0400, L3200.1275, L400.0001, L101.9900, L100.0100, L501.9985, L502.0250, L506.0200, L500.4050, L506.1001, L500.4100, L501.1400, L501.5200, L501.6710, L501.9520, L501.9940 #### [facility] [address] [place], [address] MCH (RBC) [Entitic mass] 29.7 pg Normal 27.0-32.0 [facility] Comment on above: Performed By: #### L 503.0106, L506.0400, L3200.1275, L400.0001, L101.9900, L100.0100, L501.9985, L502.0250, L506.0200, L500.4050, L506.1001, L500.4100, L501.1400, L501.5200, L501.6710, L501.9520, L501.9940 #### [facility] [address] [place], [address] MCHC (RBC) [Mass/Vol] 32.2 g/dL Normal 32-36 [facility] Comment on above: Performed By: #### L 503.0106, L506.0400, L3200.1275, L400.0001, L101.9900, L100.0100, L501.9985, L502.0250, L506.0200, L500.4050, L506.1001, L500.4100, L501.1400, L501.5200, L501.6710, L501.9520, L501.9940 #### [facility] [address] [place], [place], [phone] MCV (RBC) [Entitic vol] 92.1 fL Normal 80-94 [facility] Comment on above: Performed By: #### L 503.0106, L506.0400, L3200.1275, L400.0001, L101.9900, L100.0100, L501.9985, L502.0250, L506.0200, L500.4050, L506.1001, L500.4100, L501.1400, L501.5200, L501.6710, L501.9520, L501.9940 #### [facility] [address] [facility] [place], [place], [phone]) Monocytes/100 WBC (Bld) 6.1 % Normal 0-10 [facility] Comment on above: Performed By: #### L 503.0106, L506.0400, L3200.1275, L400.0001, L101.9900, L100.0100, L501.9985, L502.0250, L506.0200, L500.4050, L506.1001, L500.4100, L501.1400, L501.5200, L501.6710, L501.9520, L501.9940 #### [facility] [address] [place], [place], [phone]) Neutrophils/100 WBC (Bld) 45.4 % Low 47-70 [facility] Comment on above: Performed By: #### L 503.0106, L506.0400, L3200.1275, L400.0001, L101.9900, L100.0100, L501.9985, L502.0250, L506.0200, L500.4050, L506.1001, L500.4100, L501.1400, L501.5200, L501.6710, L501.9520, L501.9940 #### [facility] [address] [place], [place], [phone] Nucleated RBC (Bld) [#/Vol] 0 10*3/uL Normal 0-5 [facility] Comment on above: Performed By: #### L 503.0106, L506.0400, L3200.1275, L400.0001, L101.9900, L100.0100, L501.9985, L502.0250, L506.0200, L500.4050, L506.1001, L500.4100, L501.1400, L501.5200, L501.6710, L501.9520, L501.9940 #### [facility] [address] [place], [address] Platelet mean volume (Bld) [Entitic vol] 10.8 fL Normal 6.2-12.0 [facility] Comment on above: Performed By: #### L 503.0106, L506.0400, L3200.1275, L400.0001, L101.9900, L100.0100, L501.9985, L502.0250, L506.0200, L500.4050, L506.1001, L500.4100, L501.1400, L501.5200, L501.6710, L501.9520, L501.9940 #### [facility] [address] [place], [place], [address] Platelets (Bld) [#/Vol] 196 10*3/uL Normal 150-450 [facility] Comment on above: Performed By: #### L 503.0106, L506.0400, L3200.1275, L400.0001, L101.9900, L100.0100, L501.9985, L502.0250, L506.0200, L500.4050, L506.1001, L500.4100, L501.1400, L501.5200, L501.6710, L501.9520, L501.9940 #### [facility] [address] [facility] [place], [place], [phone] RBC (Bld) [#/Vol] 3.54 10*6/uL Low 4.6-6.2 [facility] Comment on above: Performed By: #### L 503.0106, L506.0400, L3200.1275, L400.0001, L101.9900, L100.0100, L501.9985, L502.0250, L506.0200, L500.4050, L506.1001, L500.4100, L501.1400, L501.5200, L501.6710, L501.9520, L501.9940 #### [facility] [address] [place], [place], [phone] RDW SD 42.9 fl Normal 35.1-43.9 [facility] Comment on above: Performed By: #### L 503.0106, L506.0400, L3200.1275, L400.0001, L101.9900, L100.0100, L501.9985, L502.0250, L506.0200, L500.4050, L506.1001, L500.4100, L501.1400, L501.5200, L501.6710, L501.9520, L501.9940 #### [facility] [address] [facility] [place], [place], [phone] WBC (Bld) [#/Vol] 4.9 10*3/uL Normal 4.4-11.0 [facility] Comment on above: Performed By: #### L 503.0106, L506.0400, L3200.1275, L400.0001, L101.9900, L100.0100, L501.9985, L502.0250, L506.0200, L500.4050, L506.1001, L500.4100, L501.1400, L501.5200, L501.6710, L501.9520, L501.9940 #### [facility] [address] [place], [place], [phone] CRPon 08-06-2024 C-REACTIVE PROT < 3.00 Normal 0.0-3.0 [facility] Comment on above: Performed By: #### L 503.0106, L506.0400, L3200.1275, L400.0001, L101.9900, L100.0100, L501.9985, L502.0250, L506.0200, L500.4050, L506.1001, L500.4100, L501.1400, L501.5200, L501.6710, L501.9520, L501.9940 ####[facility] [address] [place], [place], [phone] Calculated very low density lipoprotein (VLDL) cholesterol measurementOrdered By: Juvencio Shrestha on 08-06-2024 Calculated very low density lipoprotein (VLDL) cholesterol measurement 24 mg/dL 5-40 [facility] Carbon dioxide, total [Moles /volume] in Central venous bloodOrdered By: Juvencio Nemr on 08-06-2024 CO2 [Moles/Vol] 21.0 mmol/L 21.0-32.0 [facility] Chloride assayOrdered By: Eduardo Whartonr on 08-06-2024 Chloride [Moles/Vol] 107 mmol/L 98-108 [facility] Comprehensive Metabolic Prof ilon 08-06-2024 Albumin [Mass/Vol] 4.0 g/dL Normal 3.4-4.8 [facility] Comment on above: Performed By: #### L 503.0106, L506.0400, L3200.1275, L400.0001, L101.9900, L100.0100, L501.9985, L502.0250, L506.0200, L500.4050, L506.1001, L500.4100, L501.1400, L501.5200, L501.6710, L501.9520, L501.9940 ####[facility] [address] [place], [address] Albumin/Globulin [Mass ratio] 1.4 {ratio} Normal 0.9-2.4 [facility] Comment on above: Performed By: #### L 503.0106, L506.0400, L3200.1275, L400.0001, L101.9900, L100.0100, L501.9985, L502.0250, L506.0200, L500.4050, L506.1001, L500.4100, L501.1400, L501.5200, L501.6710, L501.9520, L501.9940 ####[facility] [address] [place], [place], [phone] ALK PHOS 60 U/L Normal 40-129 [facility] Comment on above: Performed By: #### L 503.0106, L506.0400, L3200.1275, L400.0001, L101.9900, L100.0100, L501.9985, L502.0250, L506.0200, L500.4050, L506.1001, L500.4100, L501.1400, L501.5200, L501.6710, L501.9520, L501.9940 ####[facility] [address] [place], [address] ALT [Catalytic activity/Vol] 12 U/L Normal <=46 [facility] Comment on above: Performed By: #### L 503.0106, L506.0400, L3200.1275, L400.0001, L101.9900, L100.0100, L501.9985, L502.0250, L506.0200, L500.4050, L506.1001, L500.4100, L501.1400, L501.5200, L501.6710, L501.9520, L501.9940 ####[facility] [address] [place], [place], [phone] AST [Catalytic activity/Vol] 13 U/L Normal <=37 [facility] Comment on above: Performed By: #### L 503.0106, L506.0400, L3200.1275, L400.0001, L101.9900, L100.0100, L501.9985, L502.0250, L506.0200, L500.4050, L506.1001, L500.4100, L501.1400, L501.5200, L501.6710, L501.9520, L501.9940 ####[facility] [address] [place], [place], [phone] Bilirubin [Mass/Vol] 0.16 mg/dL Normal 0.00-1.30 [facility] Comment on above: Performed By: #### L 503.0106, L506.0400, L3200.1275, L400.0001, L101.9900, L100.0100, L501.9985, L502.0250, L506.0200, L500.4050, L506.1001, L500.4100, L501.1400, L501.5200, L501.6710, L501.9520, L501.9940 ####[facility] [address] [place], [place], [phone] BUN/CRE 19.6 RATIO Normal 10-20 [facility] Comment on above: Performed By: #### L 503.0106, L506.0400, L3200.1275, L400.0001, L101.9900, L100.0100, L501.9985, L502.0250, L506.0200, L500.4050, L506.1001, L500.4100, L501.1400, L501.5200, L501.6710, L501.9520, L501.9940 ####[facility] [address] [place], [place], [phone](446) Calcium [Mass/Vol] 9.4 mg/dL Normal 7.6-11.0 [facility] Comment on above: Performed By: #### L 503.0106, L506.0400, L3200.1275, L400.0001, L101.9900, L100.0100, L501.9985, L502.0250, L506.0200, L500.4050, L506.1001, L500.4100, L501.1400, L501.5200, L501.6710, L501.9520, L501.9940 ####[facility] [address] [place], [place], [phone](593) Chloride [Moles/Vol] 107 mmol/L Normal 98-108 [facility] Comment on above: Performed By: #### L 503.0106, L506.0400, L3200.1275, L400.0001, L101.9900, L100.0100, L501.9985, L502.0250, L506.0200, L500.4050, L506.1001, L500.4100, L501.1400, L501.5200, L501.6710, L501.9520, L501.9940 ####[facility] [address] [place], [place], [phone](564) CO2 [Moles/Vol] 21.0 mmol/L Normal 21.0-32.0 [facility] Comment on above: Performed By: #### L 503.0106, L506.0400, L3200.1275, L400.0001, L101.9900, L100.0100, L501.9985, L502.0250, L506.0200, L500.4050, L506.1001, L500.4100, L501.1400, L501.5200, L501.6710, L501.9520, L501.9940 ####[facility] [address] [place], [address] Creatinine [Mass/Vol] 1.36 mg/dL High 0.70-1.20 [facility] Comment on above: Performed By: #### L 503.0106, L506.0400, L3200.1275, L400.0001, L101.9900, L100.0100, L501.9985, L502.0250, L506.0200, L500.4050, L506.1001, L500.4100, L501.1400, L501.5200, L501.6710, L501.9520, L501.9940 ####[facility] [address] [place], [address] GAP 12 Normal 5-15 [facility] Comment on above: Performed By: #### L 503.0106, L506.0400, L3200.1275, L400.0001, L101.9900, L100.0100, L501.9985, L502.0250, L506.0200, L500.4050, L506.1001, L500.4100, L501.1400, L501.5200, L501.6710, L501.9520, L501.9940 ####[facility] [address] [place], [address] GFR/1.73 sq M.predicted among non-blacks MDRD (S/P/Bld) [Vol rate/Area] 56 mL/min/{1.73_m2} Low >60 [facility] Comment on above: Result Comment: mL/m in/1.73m2 CKD-EPI Creatinine Equation (2020) Performed By: #### L 503.0106, L506.0400, L3200.1275, L400.0001, L101.9900, L100.0100, L501.9985, L502.0250, L506.0200, L500.4050, L506.1001, L500.4100, L501.1400, L501.5200, L501.6710, L501.9520, L501.9940 ####[facility] [address] [place], [place], [phone](515) Globulin (S) [Mass/Vol] 2.8 g/dL Normal 2.2-4.2 [facility] Comment on above: Performed By: #### L 503.0106, L506.0400, L3200.1275, L400.0001, L101.9900, L100.0100, L501.9985, L502.0250, L506.0200, L500.4050, L506.1001, L500.4100, L501.1400, L501.5200, L501.6710, L501.9520, L501.9940 ####[facility] [address] [place], [place], [phone](315) Glucose [Mass/Vol] 172 mg/dL High 70-99 [facility] Comment on above: Performed By: #### L 503.0106, L506.0400, L3200.1275, L400.0001, L101.9900, L100.0100, L501.9985, L502.0250, L506.0200, L500.4050, L506.1001, L500.4100, L501.1400, L501.5200, L501.6710, L501.9520, L501.9940 ####[facility] [address] [place], [place], [phone](960) Potassium [Moles/Vol] 4.6 mmol/L Normal 3.3-5.1 [facility] Comment on above: Performed By: #### L 503.0106, L506.0400, L3200.1275, L400.0001, L101.9900, L100.0100, L501.9985, L502.0250, L506.0200, L500.4050, L506.1001, L500.4100, L501.1400, L501.5200, L501.6710, L501.9520, L501.9940 ####[facility] [address] [place], [place], [phone] Sodium [Moles/Vol] 139 mmol/L Normal 133-145 [facility] Comment on above: Performed By: #### L 503.0106, L506.0400, L3200.1275, L400.0001, L101.9900, L100.0100, L501.9985, L502.0250, L506.0200, L500.4050, L506.1001, L500.4100, L501.1400, L501.5200, L501.6710, L501.9520, L501.9940 ####[facility] [address] [place], [place], [phone] T PROT 6.9 g/dL Normal 5.9-8.4 [facility] Comment on above: Performed By: #### L 503.0106, L506.0400, L3200.1275, L400.0001, L101.9900, L100.0100, L501.9985, L502.0250, L506.0200, L500.4050, L506.1001, L500.4100, L501.1400, L501.5200, L501.6710, L501.9520, L501.9940 ####[facility] [address] [place], [place], [phone] Urea nitrogen [Mass/Vol] 27 mg/dL High 4-19 [facility] Comment on above: Performed By: #### L 503.0106, L506.0400, L3200.1275, L400.0001, L101.9900, L100.0100, L501.9985, L502.0250, L506.0200, L500.4050, L506.1001, L500.4100, L501.1400, L501.5200, L501.6710, L501.9520, L501.9940 ####[facility] [address] [place], [place], [phone] Eosinophil percentageOrdered By: Juvencio Nemr on 08-06-2024 Eosinophils/100 WBC (Bld) 3.1 % 0-5 [facility] Erythrocyte Sed Rateon 08-06 SED RATE 11 mm/hr Normal 0-20 [facility] Comment on above: Performed By: #### L 503.0106, L506.0400, L3200.1275, L400.0001, L101.9900, L100.0100, L501.9985, L502.0250, L506.0200, L500.4050, L506.1001, L500.4100, L501.1400, L501.5200, L501.6710, L501.9520, L501.9940 #### [facility] [address] [place], [address] Erythrocyte distribution wid th ratioOrdered By: Juvencio Nemr on 08-06-2024 Erythrocyte distribution width (RBC) [Ratio] 12.9 % 11.6-14.6 [facility] Erythrocyte distribution wid th standard deviationOrdered By: Juvencio Nemr on 08-06-2024 Erythrocyte distribution width (RBC) [Ratio] 42.9 fl 35.1-43.9 [facility] Erythrocyte sedimentation ra teOrdered By: Juvencio Nemr on 08-06-2024 ESR (Bld) [Velocity] 11 mm/h 0-20 [facility] Folate [Moles/volume] in Ser um or PlasmaOrdered By: Juvencio Nemr on 08-06-2024 Folate [Moles/Vol] 14.90 ng/mL 4.60-34.80 [facility] Folates,Serum (Folic Acid)on 08-06-2024 FOLATES,SERUM 14.90 ng/mL Normal 4.60-34.80 [facility] Comment on above: Order Comment: N Performed By: #### L 503.0106, L506.0400, L3200.1275, L400.0001, L101.9900, L100.0100, L501.9985, L502.0250, L506.0200, L500.4050, L506.1001, L500.4100, L501.1400, L501.5200, L501.6710, L501.9520, L501.9940 ####[facility] [address] [place], [address] Glomerular filtration rate ( GFR) estimation/1.73 sq m using serum, plasma, or whole bOrdered By: Juvencio Shrestha on 08-06-2024 GFR/1.73 sq M.predicted among non-blacks MDRD (S/P/Bld) [Vol rate/Area] 56 mL/min/{1.73_m2} Low >60 [facility] Comment on above: mL/min/1.73m2 CKD-EP I Creatinine Equation (2020) Hematocrit Auto (Bld) [Volum e fraction]Ordered By: Juvencio Shrestha on 08-06-2024 Hematocrit (Bld) [Volume fraction] 32.6 % Low 40-54 [facility] Hemoglobin A1con 08-06-2024 HbA1c (Bld) [Mass fraction] 13.1 % High <=5.6 [facility] Comment on above: Result Comment: Norm al < 5.7 % Prediabetic 5.7 - 6.4 % Diabetic >or= 6.5 % Please note range changes. Performed By: #### L 503.0106, L506.0400, L3200.1275, L400.0001, L101.9900, L100.0100, L501.9985, L502.0250, L506.0200, L500.4050, L506.1001, L500.4100, L501.1400, L501.5200, L501.6710, L501.9520, L501.9940 #### [facility] [place], [address] Hemoglobin A1c percentageOrd ered By: Juvencio Shrestha on 08-06-2024 HbA1c (Bld) [Mass fraction] 13.1 % High <5.7 [facility] Comment on above: Normal < 5.7 % Predi abetic 5.7 - 6.4 % Diabetic >or= 6.5 % Please note range changes. Hemoglobin measurementOrdere d By: Juvencio Shrestha on 08-06-2024 Hemoglobin (Bld) [Mass/Vol] 10.5 g/dL Low 13.0-16.5 [facility] Immature granulocytes/100 WB C Auto (Bld)Ordered By: Sulligentnan Shrestha on 08-06-2024 Immature granulocytes/100 WBC (Bld) 0.200 % 0.0-0.9 [facility] Comment on above: IG% - Immature Granu locytes (promyelocytes, myelocytes and metamyelocytes) > 1% indicates that a LEFT SHIFT is Present. Ketones Test strip Ql (U)Ord ered By: Sulligentnan Shrestha on 08-06-2024 Ketones Ql (U) Negative Negative [facility] LDL calc ser/plasOrdered By: Sulligentnan Shrestha on 08-06-2024 Cholesterol in LDL [Mass/Vol] 89 mg/dL [facility] Comment on above: Hjijsfmdkf=457-690 m g/dL & Higher Pvxj=987 mg/dL or greater Laboratory - Chemistry and C hemistry - challengeOrdered By: Juvencio Shrestha on 08-06-2024 AST [Catalytic activity/Vol] 13 U/L <38 [facility] Lipid Profileon 08-06-2024 CHOL:HDL 3.85 Normal [facility] Comment on above: Performed By: #### L 503.0106, L506.0400, L3200.1275, L400.0001, L101.9900, L100.0100, L501.9985, L502.0250, L506.0200, L500.4050, L506.1001, L500.4100, L501.1400, L501.5200, L501.6710, L501.9520, L501.9940 ####[facility] [address] [place], [place], [phone](022) Cholesterol [Mass/Vol] 153 mg/dL Normal <=200 [facility] Comment on above: Result Comment: Chol esterol level, Desirable <200 mg/dL Borderline high cholesterol 200-239 mg/dL High cholesterol >=240 mg/dL Recommendations of the NCEP Adult Treatment Panel for the following risk-cutoff thresholds for the [place] population. Performed By: #### L 503.0106, L506.0400, L3200.1275, L400.0001, L101.9900, L100.0100, L501.9985, L502.0250, L506.0200, L500.4050, L506.1001, L500.4100, L501.1400, L501.5200, L501.6710, L501.9520, L501.9940 ####[facility] [address] [facility] [place], [place], [phone] Cholesterol in HDL [Mass/Vol] 40 mg/dL Normal [facility] Comment on above: Result Comment: Tami onal Cholesterol Education Program (NCEP) guidelines: <40 mg/dL: Low HDL-cholesterol (major risk factor for CHD) >= 60 mg/dL: High HDL-cholesterol (negative risk factor for CHD) HDL-cholesterol is affected by a number of factors, e.g. smoking, exercise, hormones, sex and age. Performed By: #### L 503.0106, L506.0400, L3200.1275, L400.0001, L101.9900, L100.0100, L501.9985, L502.0250, L506.0200, L500.4050, L506.1001, L500.4100, L501.1400, L501.5200, L501.6710, L501.9520, L501.9940 ####[facility] [address] [facility] [place], [address] Cholesterol in LDL [Mass/Vol] 89 mg/dL Normal [facility] Comment on above: Result Comment: Bord efqtzk=826-273 mg/dL Higher Xfjb=681 mg/dL or greater Performed By: #### L 503.0106, L506.0400, L3200.1275, L400.0001, L101.9900, L100.0100, L501.9985, L502.0250, L506.0200, L500.4050, L506.1001, L500.4100, L501.1400, L501.5200, L501.6710, L501.9520, L501.9940 ####[facility] [address] [place], [address] Cholesterol in VLDL [Mass/Vol] 24 mg/dL Normal 5-40 [facility] Comment on above: Performed By: #### L 503.0106, L506.0400, L3200.1275, L400.0001, L101.9900, L100.0100, L501.9985, L502.0250, L506.0200, L500.4050, L506.1001, L500.4100, L501.1400, L501.5200, L501.6710, L501.9520, L501.9940 ####[facility] [address] [place], [place], [phone] Triglyceride [Mass/Vol] 120 mg/dL Normal [facility] Comment on above: Result Comment: The drugs N-Acetylcysteine and Metamizole may falsely depress this assay. Normal range: <150 mg/dL Borderline High: 150-199 mg/dL High: 200-499 mg/dL Very High: >500 mg/dL Performed By: #### L 503.0106, L506.0400, L3200.1275, L400.0001, L101.9900, L100.0100, L501.9985, L502.0250, L506.0200, L500.4050, L506.1001, L500.4100, L501.1400, L501.5200, L501.6710, L501.9520, L501.9940 ####[facility] [address] [facility] [place], [place], [phone] MCV (mean corpuscular volume ) determinationOrdered By: Juvencio Nemr on 08-06-2024 MCV (RBC) [Entitic vol] 92.1 fL 80-94 [facility] Magnesiumon 08-06-2024 Magnesium [Mass/Vol] 2.0 mg/dL Normal 1.5-2.2 [facility] Comment on above: Performed By: #### L 503.0106, L506.0400, L3200.1275, L400.0001, L101.9900, L100.0100, L501.9985, L502.0250, L506.0200, L500.4050, L506.1001, L500.4100, L501.1400, L501.5200, L501.6710, L501.9520, L501.9940 ####[facility] [address] [facility] [place], [place], [phone] Magnesium measurement (mass/ volume)Ordered By: Juvencio Nemr on 08-06-2024 Magnesium (Unsp spec) [Mass/Vol] 2.0 mg/dL 1.5-2.2 [facility] Mean corpuscular hemoglobin (MCH) determinationOrdered By: Juvencio Nemr on 08-06-2024 MCH (RBC) [Entitic mass] 29.7 pg 27.0-32.0 [facility] Mean corpuscular hemoglobin concentration (MCHC) determinationOrdered By: Juvencio Nemr on 08-06-2024 MCHC (RBC) [Mass/Vol] 32.2 g/dL 32-36 [facility] Mean platelet volume determi nationOrdered By: Gasnan Nemr on 08-06-2024 Platelet mean volume (Bld) [Entitic vol] 10.8 fL 6.2-12.0 [facility] Microalb:Creat Ratio,Random URon 08-06-2024 Creatinine [Mass/Vol] 61.80 mg/dL Normal 39.00-259.00 [facility] Comment on above: Performed By: #### L 503.0106, L506.0400, L3200.1275, L400.0001, L101.9900, L100.0100, L501.9985, L502.0250, L506.0200, L500.4050, L506.1001, L500.4100, L501.1400, L501.5200, L501.6710, L501.9520, L501.9940 ####[facility] [address] [place], [place], [id number] MALB:CREAT UNABLE TO CALCULATE Normal [facility] Comment on above: Performed By: #### L 503.0106, L506.0400, L3200.1275, L400.0001, L101.9900, L100.0100, L501.9985, L502.0250, L506.0200, L500.4050, L506.1001, L500.4100, L501.1400, L501.5200, L501.6710, L501.9520, L501.9940 ####[facility] [address] [place], [address] MICROALBUMIN,UR < 12.0 Normal NO RANGE EST. [facility] Comment on above: Performed By: #### L 503.0106, L506.0400, L3200.1275, L400.0001, L101.9900, L100.0100, L501.9985, L502.0250, L506.0200, L500.4050, L506.1001, L500.4100, L501.1400, L501.5200, L501.6710, L501.9520, L501.9940 ####[facility] [address] [place], [address] Microalbumin/creat ratio urO rdered By: Juvencio Shrestha on 08-06-2024 Urine microalbumin/creatinine ratio measurement UNABLE TO CALCULATE mg/g CRE [facility] Microscopic analysis of urin e for red blood cells (RBC)Ordered By: Juvencio Shrestha on 08-06-2024 Microscopic analysis of urine for red blood cells (RBC) 0 SEEN /hpf 0-5 [facility] Monocyte percentageOrdered B y: Juvencio Shrestha on 08-06-2024 Monocytes/100 WBC (Bld) 6.1 % 0-10 [facility] Mucus LM Ql (Urine sed)Order ed By: Juvencio Shrestha on 08-06-2024 Mucus Ql (Urine sed) 0 SEEN /hpf [facility] Neutrophil percentageOrdered By: [facility] Henrietta on 08-06-2024 Neutrophils/100 WBC (Bld) 45.4 % Low 47-70 [facility] Nitrite Test strip Ql (U)Ord ered By: Sulligentnan Shrestha on 08-06-2024 Nitrite Ql (U) Negative Negative [facility] Nucleated red blood cell per centageOrdered By: Sulligentnan Shrestha on 08-06-2024 Nucleated RBC/100 WBC (Bld) [Ratio] 0 % 0-5 [facility] PSA,Total- [employer] 07-12 PSA, DIAGNOSTIC < 0.02 Normal 0.00-4.00 [facility] Comment on above: Result Comment: This test was performed using the [facility] tPSA method. Measured values of a patient??sample can vary depending on the testing procedure used. PSA values determined on patient samples by different testing procedures cannot be used interchangeably. If there is a change in PSA assays while monitoring therapy, sequential testing should be performed to confirm baseline values. Performed By: #### L 503.0106, L506.0400, L3200.1275, L400.0001, L101.9900, L100.0100, L501.9985, L502.0250, L506.0200, L500.4050, L506.1001, L500.4100, L501.1400, L501.5200, L501.6710, L501.9520, L501.9940 ####[facility] [address] [place], [place], [id number] Platelet countOrdered By: Eduardo Apple on 08-06-2024 Platelets (Bld) [#/Vol] 196 10*3/uL 150-450 [facility] Potassium measurement (mass/ volume)Ordered By: Juvencio Shrestha on 08-06-2024 Potassium (Unsp spec) [Mass/Vol] 4.6 mmol/L 3.3-5.1 [facility] Protein Test strip Ql (U)Ord ered By: Juvencio Shrestha on 08-06-2024 Protein Ql (U) 15 mg/dl High Negative [facility] RBC Auto (Bld) [#/Vol]Ordere d By: Juvencio Shrestha on 08-06-2024 RBC (Bld) [#/Vol] 3.54 10*6/uL Low 4.6-6.2 [facility] Random urine creatinine vicky urement (mass/volume)Ordered By: Juvencio Shrestha on 08-06-2024 Creatinine Unsp time (U) [Mass/Vol] 61.80 mg/dL 39.00-259.00 [facility] Screening total cholesterol/ high density lipoprotein (HDL) cholesterol ratioOrdered By: Juvencio Shrestha on 08-06-2024 Cholesterol.total/Mary sterol in HDL [Mass ratio] 3.85 {ratio} [facility] Serum creatinine measurement (mass/volume)Ordered By: Juvencio Shrestha on 08-06-2024 Creatinine [Mass/Vol] 1.36 mg/dL High 0.70-1.20 [facility] Serum globulin measurementOr dered By: Juvencio Shrestha on 08-06-2024 Globulin (S) [Mass/Vol] 2.8 g/dL 2.2-4.2 [facility] Serum glucose measurement (m ass/volume)Ordered By: Juvencio Shrestha on 08-06-2024 Glucose [Mass/Vol] 172 mg/dL High 70-99 [facility] Serum or plasma C reactive p rotein measurement (mass/volume)Ordered By: Juvencio Shrestha on 08-06-2024 CRP [Mass/Vol] mg/L 0.0-3.0 [facility] Serum or plasma IgA measurem ent (mass/volume)Ordered By: Juvencio Shrestha on 08-06-2024 IgA [Mass/Vol] 387 mg/dL 61-437 [facility] Serum or plasma IgG measurem ent (mass/volume)Ordered By: [facility] on 08-06-2024 IgG [Mass/Vol] 912 mg/dL 603-1613 [facility] Serum or plasma alanine haile otransferase (ALT) measurementOrdered By: [facility] on 08-06-2024 ALT [Catalytic activity/Vol] 12 U/L <47 [facility] Serum or plasma albumin vicky urement (mass/volume)Ordered By: [facility] on 08-06-2024 Albumin [Mass/Vol] 4.0 g/dL 3.4-4.8 [facility] Serum or plasma albumin/glob ulin mass ratioOrdered By: Sulligentnan [facility] on 08-06-2024 Albumin/Globulin [Mass ratio] 1.4 {ratio} 0.9-2.4 [facility] Serum or plasma alkaline tere sphatase measurementOrdered By: [facility] on 08-06-2024 ALP [Catalytic activity/Vol] 60 U/L 40-129 [facility] Serum or plasma calcium vicky urement (mass/volume)Ordered By: [facility] on 08-06-2024 Calcium [Mass/Vol] 9.4 mg/dL 7.6-11.0 [facility] Serum or plasma cholesterol in HDL measurement (mass/volume)Ordered By: [facility] on 08-06-2024 Cholesterol in HDL [Mass/Vol] 40 mg/dL >40 [facility] Comment on above: National Cholesterol Education Program (NCEP) guidelines:<40 mg/dL: Low HDL-cholesterol (major risk factor for CHD)>= 60 mg/dL: High HDL-cholesterol (negative risk factor for CHD)HDL-cholesterol is affected by a number of factors, e.g. smoking, exercise, hormones, sex and age. Serum or plasma cholesterol measurement (mass/volume)Ordered By: [facility] on 08-06-2024 Cholesterol [Mass/Vol] 153 mg/dL <201 [facility] Comment on above: Cholesterol level, D esirable <200 mg/dLBorderline high cholesterol 200-239 mg/dLHigh cholesterol >=240 mg/dLRecommendations of the NCEP Adult Treatment Panel for the following risk-cutoff thresholds for the [place] population. Serum or plasma urea nitroge n measurement (mass/volume)Ordered By: Juvencio Nemr on 08-06-2024 Urea nitrogen [Mass/Vol] 27 mg/dL High 4-19 [facility] Serum or plasma uric acid me asurement (mass/volume)Ordered By: Juvencio Nemr on 08-06-2024 Urate [Mass/Vol] 5.2 mg/dL 3.5-7.2 [facility] Comment on above: The drugs N-Acetylcy steine and Metamizole may falsely depress this assay. Sodium levelOrdered By: Norma talavera Nemr on 08-06-2024 Sodium [Moles/Vol] 139 mmol/L 133-145 [facility] Squamous epithelial cells de tection in urine sediment by light microscopyOrdered By: Juvencio Shrestha on 08-06-2024 Epithelial cells.squamous LM Ql (Urine sed) 0 SEEN /hpf 0-5 [facility] T4 Free Directon 08-06-2024 T4 FREE DIRECT 1.50 ng/dL High 0.76-1.46 [facility] Comment on above: Performed By: #### L 503.0106, L506.0400, L3200.1275, L400.0001, L101.9900, L100.0100, L501.9985, L502.0250, L506.0200, L500.4050, L506.1001, L500.4100, L501.1400, L501.5200, L501.6710, L501.9520, L501.9940 ####[facility] [address] [place], [address] T4 freeOrdered By: Juvencio Nem r on 08-06-2024 Free T4 [Mass/Vol] 1.50 ng/dL High 0.76-1.46 [facility] TSH DL <= 0.005 mIU/L QnOrde red By: Juvencio Nemr on 08-06-2024 TSH Qn 0.117 uIU/mL Low 0.300-4.200 [facility] Thyroid Stim Hormone (TSH)on 08-06-2024 TSH 0.117 uIU/mL Low 0.300-4.200 [facility] Comment on above: Performed By: #### L 503.0106, L506.0400, L3200.1275, L400.0001, L101.9900, L100.0100, L501.9985, L502.0250, L506.0200, L500.4050, L506.1001, L500.4100, L501.1400, L501.5200, L501.6710, L501.9520, L501.9940 ####[facility] [address] [place], [place], [id number] Total proteinOrdered By: Kinjal montana Nemr on 08-06-2024 Protein [Mass/Vol] 6.9 g/dL 5.9-8.4 [facility] Triglycerides measurementOrd ered By: Juvencio Nemr on 08-06-2024 Triglyceride [Mass/Vol] 120 mg/dL <199 [facility] Comment on above: The drugs N-Acetylcy steine and Metamizole may falsely depress this assay. Normal range: <150 mg/dLBorderline High: 150-199 mg/dLHigh: 200-499 mg/dLVery High: >500 mg/dL Uric Acidon 08-06-2024 URIC 5.2 mg/dL Normal 3.5-7.2 [facility] Comment on above: Result Comment: The drugs N-Acetylcysteine and Metamizole may falsely depress this assay. Performed By: #### L 503.0106, L506.0400, L3200.1275, L400.0001, L101.9900, L100.0100, L501.9985, L502.0250, L506.0200, L500.4050, L506.1001, L500.4100, L501.1400, L501.5200, L501.6710, L501.9520, L501.9940 ####[facility] [address] [place], [place], [id number] Urinalysis, Completeon 08-06 BACTERIA 0 SEEN Normal None Seen [facility] Comment on above: Order Comment: CLEAN CATCH Performed By: #### L 503.0106, L506.0400, L3200.1275, L400.0001, L101.9900, L100.0100, L501.9985, L502.0250, L506.0200, L500.4050, L506.1001, L500.4100, L501.1400, L501.5200, L501.6710, L501.9520, L501.9940 #### [facility] [address] [place], [place], [address] EPI,SQUAMOUS 0 SEEN Normal 0-5 [facility] Comment on above: Order Comment: CLEAN CATCH Performed By: #### L 503.0106, L506.0400, L3200.1275, L400.0001, L101.9900, L100.0100, L501.9985, L502.0250, L506.0200, L500.4050, L506.1001, L500.4100, L501.1400, L501.5200, L501.6710, L501.9520, L501.9940 #### [facility] [address] [place], [place], [id number] Mucus Ql (Urine sed) 0 SEEN Normal [facility] Comment on above: Order Comment: CLEAN CATCH Performed By: #### L 503.0106, L506.0400, L3200.1275, L400.0001, L101.9900, L100.0100, L501.9985, L502.0250, L506.0200, L500.4050, L506.1001, L500.4100, L501.1400, L501.5200, L501.6710, L501.9520, L501.9940 #### [facility] [address] [place], [place], [id number] RBC 0 SEEN Normal 0-5 [facility] Comment on above: Order Comment: CLEAN CATCH Performed By: #### L 503.0106, L506.0400, L3200.1275, L400.0001, L101.9900, L100.0100, L501.9985, L502.0250, L506.0200, L500.4050, L506.1001, L500.4100, L501.1400, L501.5200, L501.6710, L501.9520, L501.9940 #### [facility] [address] [place], [place], [id number] WBC 0 SEEN Normal 0-5 [facility] Comment on above: Order Comment: CLEAN CATCH Performed By: #### L 503.0106, L506.0400, L3200.1275, L400.0001, L101.9900, L100.0100, L501.9985, L502.0250, L506.0200, L500.4050, L506.1001, L500.4100, L501.1400, L501.5200, L501.6710, L501.9520, L501.9940 #### [facility] [address] [place], [address] Urine albumin measurement [facility] detection limit of 20 mg/L or less (mass/volume)Ordered By: Juvencio Shrestha on 08-06-2024 Albumin DL <= 20 mg/L (U) [Mass/Vol] < 12.0 mg/L NO RANGE EST. [facility] Urine clarityOrdered By: Kinjal Shrestha on 08-06-2024 Clarity (U) Clear Clear [facility] Urine color determinationOrd ered By: Juvencio Shrestha on 08-06-2024 Color (U) Yellow Yellow [facility] Urine glucose detectionOrder ed By: Juvencio Shrestha on 08-06-2024 Glucose Ql (U) 50 mg/dl High Normal [facility] Urine leukocyte esterase det ection by dipstickOrdered By: Juvencio Shrestha on 08-06-2024 Leukocyte esterase Test strip Ql (U) Negative Negative [facility] Urine pHOrdered By: Juvencio rico on 08-06-2024 pH (U) 6.0 [pH] 5.0 - 8.0 [facility] Urine sediment bacteria coun t by microscopy (number/high power field)Ordered By: Juvencio Shrestha on 08-06-2024 Bacteria LM.HPF (Urine sed) [#/Area] 0 /[HPF] None Seen [facility] Urine specific gravity measu rementOrdered By: Juvencio Shrestha on 08-06-2024 Specific gravity (U) [Rel density] 1.015 1.002-1.030 [facility] Urine urobilinogen measureme ntOrdered By: Juvencio Shrestha on 08-06-2024 Urobilinogen Ql (U) Normal mg/dl Normal [facility] Vitamin B12on 08-06-2024 Cobalamin (Vitamin B12) [Mass/Vol] 553 pg/mL Normal 180-914 [facility] Comment on above: Performed By: #### L 503.0106, L506.0400, L3200.1275, L400.0001, L101.9900, L100.0100, L501.9985, L502.0250, L506.0200, L500.4050, L506.1001, L500.4100, L501.1400, L501.5200, L501.6710, L501.9520, L501.9940 ####[facility] [address] [place], [place], [address] Vitamin B12 ser/plasOrdered By: Juvencio Shrestha on 08-06-2024 Cobalamin (Vitamin B12) [Mass/Vol] 553 pg/mL 180-914 [facility] Vitamin D,25 Hydroxyon 08-06 Vitamin D 25-OH 30.7 ng/mL Normal 30-100 [facility] Comment on above: Result Comment: Yamilex min D Status Deficiency: <20 ng/mL (50nmol/L) Insufficiency: 20-30 ng/mL (50-75 nmol/L) Sufficiency: 30-100 ng/mL (75-250 nmol/L) Toxicity: >100 ng/mL (>250 nmol/L) Performed By: #### L 503.0106, L506.0400, L3200.1275, L400.0001, L101.9900, L100.0100, L501.9985, L502.0250, L506.0200, L500.4050, L506.1001, L500.4100, L501.1400, L501.5200, L501.6710, L501.9520, L501.9940 ####[facility] [address] [place], [address] White blood cell (WBC) count Ordered By: Juvencio Shrestha on 08-06-2024 WBC (Bld) [#/Vol] 4.9 10*3/uL 4.4-11.0 [facility] White blood cell countOrdere d By: Juvencio Shrestha on 08-06-2024 White blood cell count 0 SEEN /hpf 0-5 [facility] 12 Lead EKGon 12-17-2023 12 Lead EKG [facility] Cardiovascular Services [address] [place] [address] 12 Lead EKG 12/17/23 1139 MR#: [id number] Acct: [id number] Name: JOSSUE GIL Rep #: [id number] : 1955 68 From: Bill Tomlinson MD Attending Dr: Dr. Wily Reyna MD Status: DIS THEODORE Ordering Dr: Wily Reyna MD Date: 12/17/23 Location: [facility] Sex: M C Admitted: 12/16/23 Test Reason : CP Blood Pressure : */* mmHG Vent. Rate : 49 BPM Atrial Rate : 49 BPM P-R Int : 188 ms QRS Dur : 78 ms QT Int : 454 ms P-R-T Axes : 61 9 222 degrees QTcB Int : [address] T wave abnormality, consider inferolateral ischemia Abnormal ECG When compared with ECG of 17-Dec-2023 09:05, MANUAL COMPARISON REQUIRED DATA IS UNCONFIRMED Confirmed by Bill Tomlinson ([id number]), editorial intern CHICO MONTES DE OCA ([id number]) on 12/18/2023 5:56:12 AM Referred By: Wily Reyna Confirmed By: Bill Tomlinson 12/18/23 0556 Date Bill Tomlinson MD CC: Dr. Wily Reyna MD; Dr. Juvencio Shrestha MD Signed Normal [facility] 12 Lead EKG [facility] Cardiovascular Services [address] [place] [address] 12 Lead EKG 12/17/23 0905 MR#: [id number] Acct: [id number] Name: JOSSUE GIL Rep #: [id number] : 1955 68 From: Harpreet Vizcaino MD Attending Dr: Dr. Wily Reyna MD Status: ADM THEODORE Ordering Dr: Wily Reyna MD Date: 12/17/23 Location: [facility] Sex: M C Admitted: 12/16/23 Test Reason : Blood Pressure : */* mmHG Vent. Rate : 53 BPM Atrial Rate : 53 BPM P-R Int : 200 ms QRS Dur : 84 ms QT Int : 460 ms P-R-T Axes : 60 19 199 degrees QTcB Int : 431 ms Sinus bradycardia T wave abnormality, consider inferolateral ischemia Abnormal ECG When compared with ECG of 16-Dec-2023 13:36, MANUAL COMPARISON REQUIRED DATA IS UNCONFIRMED Confirmed by AUTUMN VICTORIA, HARPREET ([id number]), editorial intern CHATA CRAIG ([id number]) on 12/17/2023 1:19:15 PM Referred By: Wily Reyna Confirmed By: HARPREET VIZCAINO MD 12/17/23 1319 Date Harpreet Vizcaino MD CC: Dr. Wily Reyna MD; Dr. Juvencio Shrestha MD Signed Normal [facility] Bedside Glucoseon 12-17-2023 FINGERSTICK GLU 260 mg/dL High 74-106 [facility] Comment on above: Result Comment: GENOVEVA LIU OF PATIENT CARE PER NURSING PROTOCOL Performed By: #### L 501.080 #### [facility] Laboratory [address] [place], [address] FINGERSTICK GLU 266 mg/dL High 74-106 [facility] Comment on above: Result Comment: GENOVEVA LIU OF PATIENT CARE PER NURSING PROTOCOL Performed By: #### L 501.080 ####[facility] [address] [place], [address] CBC-Complete Blood Cnt No Di ffon 12-17-2023 Erythrocyte distribution width (RBC) [Ratio] 13.1 % Normal 11.6-14.6 [facility] Comment on above: Performed By: #### L 100.0500, L500.4050 ####[facility] [address] [place], [address] Hematocrit (Bld) [Volume fraction] 29.0 % Low 40-54 [facility] Comment on above: Performed By: #### L 100.0500, L500.4050 ####[facility] [address] [place], [address] Hemoglobin (Bld) [Mass/Vol] 9.2 g/dL Low 13.0-16.5 [facility] Comment on above: Performed By: #### L 100.0500, L500.4050 ####[facility] [address] [place], [address] MCH (RBC) [Entitic mass] 29.7 pg Normal 27.0-32.0 [facility] Comment on above: Performed By: #### L 100.0500, L500.4050 ####[facility] [address] [place], [address] MCHC (RBC) [Mass/Vol] 31.7 g/dL Low 32-36 [facility] Comment on above: Performed By: #### L 100.0500, L500.4050 ####[facility] [address] [place], [address] MCV (RBC) [Entitic vol] 93.5 fL Normal 80-94 [facility] Comment on above: Performed By: #### L 100.0500, L500.4050 ####[facility] [address] [place], [address] Platelet mean volume (Bld) [Entitic vol] 10.2 fL Normal 6.2-12.0 [facility] Comment on above: Performed By: #### L 100.0500, L500.4050 ####[facility] [address] [place], [address] Platelets (Bld) [#/Vol] 176 10*3/uL Normal 150-450 [facility] Comment on above: Performed By: #### L 100.0500, L500.4050 ####[facility] [address] [place], [address] RBC (Bld) [#/Vol] 3.10 10*6/uL Low 4.6-6.2 [facility] Comment on above: Performed By: #### L 100.0500, L500.4050 ####[facility] [address] [place], [address] RDW SD 44.8 fl High 35.1-43.9 [facility] Comment on above: Performed By: #### L 100.0500, L500.4050 ####[facility] [address] [place], [address] WBC (Bld) [#/Vol] 5.0 10*3/uL Normal 4.4-11.0 [facility] Comment on above: Performed By: #### L 100.0500, L500.4050 ####[facility] [address] [place], [address] Comprehensive Metabolic Prof ilon 12-17-2023 Albumin [Mass/Vol] 3.2 g/dL Normal 3.2-5.0 [facility] Comment on above: Performed By: #### L 100.0500, L500.4050 ####[facility] [address] [place], [address] Albumin/Globulin [Mass ratio] 1.1 {ratio} Normal 0.9-2.4 [facility] Comment on above: Performed By: #### L 100.0500, L500.4050 ####[facility] [address] [place], [address] ALK P 45 U/L Normal 45-117 [facility] Comment on above: Performed By: #### L 100.0500, L500.4050 ####[facility] [address] [place], [address] ALT [Catalytic activity/Vol] 16 U/L Normal 16-61 [facility] Comment on above: Performed By: #### L 100.0500, L500.4050 ####[facility] [address] [place], [address] AST [Catalytic activity/Vol] 8 U/L Low 15-37 [facility] Comment on above: Performed By: #### L 100.0500, L500.4050 ####[facility] [address] [place], [address] Bilirubin [Mass/Vol] 0.20 mg/dL Normal 0.20-1.00 [facility] Comment on above: Result Comment: For patients on eltrombopag therapy, use of Dimension [place] TBIL is not recommended. Performed By: #### L 100.0500, L500.4050 ####[facility] [address] [place], [address] BUN/CRE 17.8 RATIO Normal 10-20 [facility] Comment on above: Performed By: #### L 100.0500, L500.4050 ####[facility] [address] [place], [address] CA,Total 8.6 mg/dL Normal 8.5-10.1 [facility] Comment on above: Performed By: #### L 100.0500, L500.4050 ####[facility] [address] [place], [address] Chloride [Moles/Vol] 107 mmol/L Normal 98-107 [facility] Comment on above: Performed By: #### L 100.0500, L500.4050 ####[facility] [address] [place], [address] CO2 [Moles/Vol] 24.0 mmol/L Normal 21.0-32.0 [facility] Comment on above: Performed By: #### L 100.0500, L500.4050 ####[facility] [address] [place], [address] Creatinine [Mass/Vol] 1.29 mg/dL Normal 0.70-1.30 [facility] Comment on above: Result Comment: The validity of the calculated GFR GFRAA in patients over 70 years has not been determined. Clinical correlation is essential. Performed By: #### L 100.0500, L500.4050 ####[facility] [address] [place], [address] ECRCL 55.74 ml/min Normal [facility] Comment on above: Performed By: #### L 100.0500, L500.4050 ####[facility] [address] [place], [address] EST GFR - AA 71 mL/min Normal >60 [facility] Comment on above: Result Comment: Afri can Syrian GFR Calc Performed By: #### L 100.0500, L500.4050 ####[facility] [address] [place], [address] GAP 5 Normal 5-15 [facility] Comment on above: Performed By: #### L 100.0500, L500.4050 ####[facility] [address] [place], [address] GFR/1.73 sq M.predicted among non-blacks MDRD (S/P/Bld) [Vol rate/Area] 59 mL/min/{1.73_m2} Low >60 [facility] Comment on above: Result Comment: Non- GFR Calc Performed By: #### L 100.0500, L500.4050 ####[facility] [address] [place], [address] Globulin (S) [Mass/Vol] 3.0 g/dL Normal 2.2-4.2 [facility] Comment on above: Performed By: #### L 100.0500, L500.4050 ####[facility] [address] [place], [address] Glucose [Mass/Vol] 310 mg/dL High 74-106 [facility] Comment on above: Result Comment: Gluc ose result greater than or equal to 200 mg/dL suggests DIABETES MELLITUS per A.D.A. criteria. Performed By: #### L 100.0500, L500.4050 ####[facility] [address] [place], [address] Potassium [Moles/Vol] 4.3 mmol/L Normal 3.5-5.1 [facility] Comment on above: Performed By: #### L 100.0500, L500.4050 ####[facility] [address] [place], [address] Sodium [Moles/Vol] 135 mmol/L Low 136-145 [facility] Comment on above: Performed By: #### L 100.0500, L500.4050 ####[facility] [address] [place], [address] T PROT 6.2 g/dL Low 6.4-8.2 [facility] Comment on above: Performed By: #### L 100.0500, L500.4050 ####[facility] [address] [place], [address] Urea nitrogen [Mass/Vol] 23 mg/dL High 7-18 [facility] Comment on above: Performed By: #### L 100.0500, L500.4050 ####[facility] [address] [place], [address] ACT Activated Clotting Timeo n 12-16-2023 ACTk CLOT TIME 220 sec High 74-137 [facility] Comment on above: Performed By: #### L 9100.0100 #### [facility] Laboratory [address] [place], [address] Bedside Glucoseon 12-16-2023 FINGERSTICK GLU 280 mg/dL High 74-106 [facility] Comment on above: Result Comment: GENOVEVA GEMENT OF PATIENT CARE PER NURSING PROTOCOL Performed By: #### L 501.080 ####[facility] [address] [place], [address] FINGERSTICK GLU 246 mg/dL High 74-106 [facility] Comment on above: Result Comment: GENOVEVA GEMENT OF PATIENT CARE PER NURSING PROTOCOL Performed By: #### L 501.080 ####[facility] [address] [place], [address] Cardiac Cath Interventionon 12-16-2023 Cardiac Cath Intervention [facility] Imaging Services [address] [place] [address] Cardiac Cath Intervention MR#: [id number] Acct: [id number] Name: JOSSUE GIL Rep #: [id number] : 1955 68 From: Wily Reyna MD PCP: Dr. Juvencio Shrestha MD Status:[facility] Patient Name: JOSSUE GIL Study Date: 12/16/2023 Performing: Wily Reyna MD Ht: 65 inches 165.1 cm : 1955 Wt: 193.39 lbs 87.72 kg Age: 68 Gender: male BSA: 1.95 PROCEDURE(S) PERFORMED DC04-(99687)LHC/COR/CAB G IC14-(65640/C9604)GRAFT -RIKKI AND/OR PTCA, SINGLE GRAFT CLINICAL PROFILE AND CO-MORBIDITIES Indications: Worsening Angina Heart Failure: None Stress/Imaging Stress Test w/SPECT MPI: Yes Result: Positive Intermediate Risk Stress Test with SPECT MPI: Positive Intermediate Risk Angina Classification Anginal Classification w/in 2 Weeks: CCS II CAD Presentations: Stable angina. CONCLUSIONS BRADFORD to LAD patent. [place] LAD severe diffuse disease distal to BRADFORD anastomosis SVG to D1 patent SVG to OM1 patent Severe dissuse disease mi'kmaq RCA SVG to RPDA 95% Mid SVG to RPLV 100% Prox Successful RIKKI Mid SVG to RPDA using Darian Bowlegs 3.0x8 mm RECOMMENDATIONS ASA Indefinitley P2Y12 inhibitors for atleast 6 months DESCRIPTION OF PROCEDURE The patient arrived to the procedure lab. The risks and benefits of the procedure as well as a full description of our services here and lack of surgical backup were fully explained to the patient and/or their significant other prior to the catheterization. The Timeout was completed, verifying the correct patient and procedure. The patient's procedural site was prepped and draped in the usual fashion. Local anesthetic was given subcutaneously to right radial region with Lidocaine 2%. Local anesthetic was given subcutaneously to right groin region with Lidocaine 2%. Local anesthetic was given subcutaneously to right groin region with Lidocaine 2%. Using a modified Seldinger technique, and ultrasound guidance,arterial access was obtained via the right femoral artery, with Micropuncture set. Left Coronary Artery selective angiography was performed in multiple views using a 5 Fr. JL4 catheter. Right Coronary Artery selective angiography was then performed in multiple views using a 5 Fr. JR 4 catheter. Saphenous Vein graft to the RPDA selective angiography was performed in multiple views using a 5 Fr. JR 4 catheter. Saphenous Vein graft to the DIAG 1 selective angiography was performed in multiple views using a 5 Fr. JR 4 catheter. Saphenous Vein graft to the OM 1 selective angiography was performed in multiple views using a 5 Fr. JR 4 catheter. Left internal mammary artery graft to the LAD selective angiography was performed in multiple views using a 5 Fr. IM catheterThe images were reviewed and options discussed. A decision was then made to proceed with an Intervention, IVUS or other adjunct procedure. MP1 Guide catheter was inserted and engaged into the SVG to the Rt PDA. {L1} RUNTHROUGH Guide wire was advanced to the Right PDA. DARIAN FRONTIER 3.0 X 8 Drug Eluting stent was inserted. Drug Eluting stent was advanced across the lesion in the graft to the Rt PDA. Angiogram performed post stent deployment. Angiogram performed post stent deployment. The arterial sheath was pulled and a Perclose closure device was deployed for hemostasis. The arterial sheath was pulled and a Perclose closure device was deployed for hemostasis CORONARY ANGIOGRAPHY DOMINANCE: Right Dominant LEFT MAIN: Tubular 50% Mid lesion in LMCA LEFT ANTERIOR DESCENDING ARTERY: LAD: Diffuse 100% Mid lesion in LAD RIGHT CORONARY ARTERY: RCA: Calcified 95% Ostial lesion in RCA Calcified 80% Mid lesion in RCA Calcified 99% Distal lesion in RCA GRAFTS: SVG Graft to RT PDA Tubular 95% lesion in SVG Graft to RT PDA DENNY Graft to RT LV-BR SVG Graft to RT LV-BR Diffuse 100% lesion in SVG Graft to RT LV-BR SVG Graft to MARG1 SVG Graft to DIAG1 BRADFORD Graft to LAD COLLATERAL FLOW: Collateral flow from RT PDA to MARG2 INTERVENTION INFORMATION LESION SITE: Vein > to Rt PDA Segment Number: 4-Right posterior descending artery segment - rPDA , Lesion Location: Body Lesion Complexity: High/C, lesion length: 6 mm Pre Stenosis: 95 % Pre intervention MÓNICA flow: 3 PROCEDURE: Drug Eluting Stent Post Stenosis: 0 % Post intervention MÓNICA flow: 3 Lesion Devices: Medtronic 6 Fr MP1 100cm Guide Catheter Terumo .014 180cm Runthrough Extra Floppy straight Medtronic 3.0 x 08 DARIAN FRONTIER RIKKI COMPLICATIONS No Complications PROCEDURE MEDICATIONS Fentanyl 50 mcg IV Versed 1 mg IV Versed 1 mg IV Fentanyl 50 mcg IV Oxygen: 2 L/min via nasal cannula Adenosine 24 mcg IC 12/16/2023 11:28:54 Adenosine 24 mcg IC @ 12/16/2023 11:28:54 Heparin 6000 unit (more content not included)... Normal [facility] Discharge Instructionon 11- Discharge Instruction [facility] Medical Records Department [address] [place] [address] Instructions for Home/Discharge Instructions 12/16/23 1204 MR#: [id number] Acct: [id number] Name: JOSSUE GIL Rep #: [id number] : 1955 68 From: Wily Reyna MD PCP: Dr. Juvencio Shrestha MD Status:[place] [facility] [place] [facility] [place] Discharge Instructions Diet Discharge Diet: 2000 Calorie Control Diet Dressing / Incision Call your doctor if your incision/area has: Continuous Slow Oozing, Sudden Increased Bleeding, Increased Pain/ Swelling, Increased Redness, Foul Smelling Discharge and Swelling at the incision site Call your doctor if you observe: Fever of 101 or Higher, Coldness, Increased Pain and Change in Color Follow Up Care Please Follow Up With: Wily Reyna MD Test Results: Test results from this visit will be discussed in further detail at your follow-up appointment, if applicable. Discharge Plan Admission Attending Provider: Wily Reyna Primary Care Provider: Juvencio Shrestha Consulting Providers: Susie Harley Instructions Print Language: Spanish Discharge Orders/Prescriptions Prescriptions: No Action amlodipine 5 mg tablet 5 mg PO DAILY Patient Comments: TAKE 1 TABLET BY MOUTH EVERY DAY lisinopril 20 mg tablet 20 mg PO BID Patient Comments: TAKE 1 TABLET BY MOUTH TWICE DAILY 90 aspirin 81 mg tablet,delayed release (DR/EC) 81 mg PO DAILY atorvastatin 40 mg tablet 40 mg PO QHS Patient Comments: TAKE 1 TABLET BY MOUTH EVERY DAY escitalopram oxalate 20 mg tablet 20 mg PO DAILY Patient Comments: Take 1 tablet by mouth once daily. gabapentin 400 mg capsule 400 mg PO QAM Patient Comments: Take 1 capsule by mouth once daily for 90 days. gabapentin 800 mg tablet 800 mg PO QHS Patient Comments: Take 1 tablet by mouth daily at bedtime for 90 days. mecobalamin (vitamin B12) 5,000 mcg tablet,disintegrating 5,000 mcg PO QWEEK cholecalciferol (vitamin D3) 1,250 mcg (50,000 unit) capsule 1,250 mcg PO QWEEK clopidogrel 75 mg tablet 75 mg PO DAILY Qty: 90 3RF isosorbide mononitrate 60 mg tablet extended release 24 hr 60 mg PO DAILY Qty: 90 3RF pantoprazole 40 mg tablet,delayed release (DR/EC) 40 mg PO DAILY Patient Comments: TAKE ONE TABLET BY MOUTH ONCE DAILY levothyroxine 112 mcg tablet 112 mcg PO DAILY Patient Comments: TAKE ONE TABLET BY MOUTH once DAILY IN THE MORNING on an empty stomach metoprolol tartrate 25 mg tablet 25 mg PO BID Patient Comments: TAKE ONE TABLET BY MOUTH TWICE A DAY WITH FOOD glimepiride 2 mg tablet 2 mg PO BID Referrals / Follow Up: Juvencio Shrestha MD [Primary Care Provider] - Disposition Disposition (needs filled in before D/C Order can be placed): Home, Self Care 12/16/23 1204 Wily Reyna MD CC: Dr. Juvencio Shrestha MD; YOLY Wagoner Signed Normal [facility] Discharge Instruction [facility] Medical Records Department [address] [place] [address] Instructions for Home/Discharge Instructions 12/16/23 1201 MR#: [id number] Acct: [id number] Name: JOSSUE GIL Rep #: [id number] : 1955 68 From: Wily Reyna MD PCP: Dr. Juvencio Shrestha MD Status:REG [facility] [place] [facility] [place] Discharge Instructions Diet Discharge Diet: 1999 Calorie Control Diet Activity Discharge Activity: Return to Normal Activity Lifting Restrictions: No heavy lifting, bending or strenuous physical activity for 1 week Dressing / Incision Call your doctor if your incision/area has: Continuous Slow Oozing, Sudden Increased Bleeding, Increased Pain/ Swelling, Increased Redness, Foul Smelling Discharge and Swelling at the incision site Call your doctor if you observe: Fever of 101 or Higher, Coldness, Increased Pain and Change in Color Follow Up Care Please Follow Up With: Wily Reyna MD When: 2-4 weeks Test Results: Test results from this visit will be discussed in further detail at your follow-up appointment, if applicable. Discharge Plan Admission Attending Provider: Wily Reyna Primary Care Provider: Juvencio Shrestha Consulting Providers: Susie Harley Instructions Print Language: Spanish Discharge Orders/Prescriptions Prescriptions: No Action amlodipine 5 mg tablet 5 mg PO DAILY Patient Comments: TAKE 1 TABLET BY MOUTH EVERY DAY lisinopril 20 mg tablet 20 mg PO BID Patient Comments: TAKE 1 TABLET BY MOUTH TWICE DAILY 90 aspirin 81 mg tablet,delayed release (DR/EC) 81 mg PO DAILY atorvastatin 40 mg tablet 40 mg PO QHS Patient Comments: TAKE 1 TABLET BY MOUTH EVERY DAY escitalopram oxalate 20 mg tablet 20 mg PO DAILY Patient Comments: Take 1 tablet by mouth once daily. gabapentin 400 mg capsule 400 mg PO QAM Patient Comments: Take 1 capsule by mouth once daily for 90 days. gabapentin 800 mg tablet 800 mg PO QHS Patient Comments: Take 1 tablet by mouth daily at bedtime for 90 days. mecobalamin (vitamin B12) 5,000 mcg tablet,disintegrating 5,000 mcg PO QWEEK cholecalciferol (vitamin D3) 1,250 mcg (50,000 unit) capsule 1,250 mcg PO QWEEK clopidogrel 75 mg tablet 75 mg PO DAILY Qty: 90 3RF isosorbide mononitrate 60 mg tablet extended release 24 hr 60 mg PO DAILY Qty: 90 3RF pantoprazole 40 mg tablet,delayed release (DR/EC) 40 mg PO DAILY Patient Comments: TAKE ONE TABLET BY MOUTH ONCE DAILY levothyroxine 112 mcg tablet 112 mcg PO DAILY Patient Comments: TAKE ONE TABLET BY MOUTH once DAILY IN THE MORNING on an empty stomach metoprolol tartrate 25 mg tablet 25 mg PO BID Patient Comments: TAKE ONE TABLET BY MOUTH TWICE A DAY WITH FOOD glimepiride 2 mg tablet 2 mg PO BID Referrals / Follow Up: Juvencio Shrestha MD [Primary Care Provider] - Disposition Disposition (needs filled in before D/C Order can be placed): Home, Self Care 12/16/23 1203 Wily Reyna MD CC: Dr. Juvencio Shrestha MD; YOLY Wagoner Signed Normal [facility] Basic Metabolic Profile (BMP )on 12-13-2023 BUN/CRE 20.3 RATIO High 10-20 [facility] Comment on above: Performed By: #### L 502.0250 #### [facility] [address] [place], [address] CA,Total 9.4 mg/dL Normal 8.5-10.1 [facility] Comment on above: Performed By: #### L 502.0250 #### [facility] [address] [place], [address] Chloride [Moles/Vol] 108 mmol/L High 98-107 [facility] Comment on above: Performed By: #### L 502.0250 #### [facility] [address] [place], [address] CO2 [Moles/Vol] 24.0 mmol/L Normal 21.0-32.0 [facility] Comment on above: Performed By: #### L 502.0250 #### [facility] [address] [place], [address] Creatinine [Mass/Vol] 1.33 mg/dL High 0.70-1.30 [facility] Comment on above: Result Comment: The validity of the calculated GFR GFRAA in patients over 70 years has not been determined. Clinical correlation is essential. Performed By: #### L 502.0250 #### [facility] [address] [place], [address] EST GFR - AA 69 mL/min Normal >60 [facility] Comment on above: Result Comment: Afri can Syrian GFR Calc Performed By: #### L 502.0250 #### [facility] [address] [place], [address] GAP 5 Normal 5-15 [facility] Comment on above: Performed By: #### L 502.0250 #### [facility] [address] [place], [address] GFR/1.73 sq M.predicted among non-blacks MDRD (S/P/Bld) [Vol rate/Area] 57 mL/min/{1.73_m2} Low >60 [facility] Comment on above: Result Comment: Non- GFR Calc Performed By: #### L 502.0250 #### [facility] [address] [place], [address] Glucose [Mass/Vol] 207 mg/dL High 74-106 [facility] Comment on above: Result Comment: Gluc ose result greater than or equal to 200 mg/dL suggests DIABETES MELLITUS per A.D.A. criteria. Performed By: #### L 502.0250 #### [facility] [address] [place], [address] Potassium [Moles/Vol] 4.3 mmol/L Normal 3.5-5.1 [facility] Comment on above: Performed By: #### L 502.0250 #### [facility] [address] [place], [address] Sodium [Moles/Vol] 138 mmol/L Normal 136-145 [facility] Comment on above: Performed By: #### L 502.0250 #### [facility] [address] [place], [address] Urea nitrogen [Mass/Vol] 27 mg/dL High 7-18 [facility] Comment on above: Performed By: #### L 502.0250 #### [facility] [address] [place], [address] CBC W/Diff, Automatedon 11-0 2-2024 Absolute Lymph 2.50 X10 3/uL Normal 0.83-4.51 [facility] Comment on above: Performed By: #### L 502.0250 #### [facility] [address] [place], [address] Absolute Neut 2.3 X10 3/uL Normal 2.0-7.7 [facility] Comment on above: Performed By: #### L 502.0250 #### [facility] [address] [place], [address] Basophils/100 WBC (Bld) 0.4 % Normal 0-1 [facility] Comment on above: Performed By: #### L 502.0250 #### [facility] [address] [place], [address] Eosinophils/100 WBC (Bld) 1.7 % Normal 0-5 [facility] Comment on above: Performed By: #### L 502.0250 #### [facility] [address] [place], [address] Erythrocyte distribution width (RBC) [Ratio] 13.0 % Normal 11.6-14.6 [facility] Comment on above: Performed By: #### L 502.0250 #### [facility] [address] [place], [address] Hematocrit (Bld) [Volume fraction] 33.2 % Low 40-54 [facility] Comment on above: Performed By: #### L 502.0250 #### [facility] [address] [place], [address] Hemoglobin (Bld) [Mass/Vol] 10.7 g/dL Low 13.0-16.5 [facility] Comment on above: Performed By: #### L 502.0250 #### [facility] [address] [place], [address] IG% 0.200 Normal 0.0-0.9 [facility] Comment on above: Result Comment: IG% - Immature Granulocytes (promyelocytes, myelocytes and metamyelocytes) > 1% indicates that a LEFT SHIFT is Present. Performed By: #### L 502.0250 #### [facility] [address] [place], [address] Lymphocytes/100 WBC (Bld) 46.6 % High 19-41 [facility] Comment on above: Performed By: #### L 502.0250 #### [facility] [address] [place], [address] MCH (RBC) [Entitic mass] 30.1 pg Normal 27.0-32.0 [facility] Comment on above: Performed By: #### L 502.0250 #### [facility] [address] [place], [address] MCHC (RBC) [Mass/Vol] 32.2 g/dL Normal 32-36 [facility] Comment on above: Performed By: #### L 502.0250 #### [facility] [address] [place], [address] MCV (RBC) [Entitic vol] 93.5 fL Normal 80-94 [facility] Comment on above: Performed By: #### L 502.0250 #### [facility] [address] [place], [address] Monocytes/100 WBC (Bld) 8.4 % Normal 0-10 [facility] Comment on above: Performed By: #### L 502.0250 #### [facility] [address] [place], [address] Neutrophils/100 WBC (Bld) 42.7 % Low 47-70 [facility] Comment on above: Performed By: #### L 502.0250 #### [facility] [address] [place], [address] Nucleated RBC (Bld) [#/Vol] 0 10*3/uL Normal 0-5 [facility] Comment on above: Performed By: #### L 502.0250 #### [facility] [address] [place], [address] Platelet mean volume (Bld) [Entitic vol] 9.6 fL Normal 6.2-12.0 [facility] Comment on above: Performed By: #### L 502.0250 #### [facility] [address] [place], [address] Platelets (Bld) [#/Vol] 200 10*3/uL Normal 150-450 [facility] Comment on above: Performed By: #### L 502.0250 #### [facility] [address] [place], [address] RBC (Bld) [#/Vol] 3.55 10*6/uL Low 4.6-6.2 [facility] Comment on above: Performed By: #### L 502.0250 #### [facility] [address] [place], [address] RDW SD 44.4 fl High 35.1-43.9 [facility] Comment on above: Performed By: #### L 502.0250 #### [facility] [address] [place], [address] WBC (Bld) [#/Vol] 5.4 10*3/uL Normal 4.4-11.0 [facility] Comment on above: Performed By: #### L 502.0250 #### [facility] [address] [place], [address] Chest PA and Lateralon 12-12 Chest PA and Lateral [facility] Imaging Services [address] [place] [address] Chest PA and Lateral MR#: [id number] Acct: [id number] Name: JOSSUE GIL Rep #: [id number] : 1955 M 68 From: Rufus Johnson MD PCP: Dr. Juvencio Shrestha MD Status: PRE [facility] [place] Study: Chest PA and Lateral Date of Exam: 12/13/23 Exam# [id number] Ordering Dr: [place] [id number] INDICATION: CAD EXAMINATION/TECHNIQUE: X-RAY - XR Chest 2 Views COMPARISON: 04/12/2021. FINDINGS: LINES/DEVICES: None. LUNGS: No consolidation or evidence of an effusion. No evidence of edema or a pneumothorax. Stable mild scarring in the left lung base. MEDIASTINUM AND CARDIOVASCULAR STRUCTURES: Cardiac silhouette is normal in size and contour. Stable postsurgical changes. BONES AND SOFT TISSUES: No acute abnormality. RAD/Chest PA and Lateral IMPRESSION: No evidence of acute cardiopulmonary disease. Electronically Signed: Rufus Johnson DO at 1:15 EDT , CC: Dr. Juvencio Shrestha MD; YOLY Wagoner Clinical Research Administrator: Signed Normal [facility] Prothrombin Time w/INRon INR Coag (PPP) [Relative time] 0.9 {INR} Normal [facility] Comment on above: Performed By: #### L 502.0250 #### [facility] [address] [place], [address] PT Coag (PPP) [Time] 12.6 s Normal 11.7-14.9 [facility] Comment on above: Performed By: #### L 502.0250 #### [facility] [address] [place], [address] Stress Reporton 12-11-2023 Stress Report [facility] Cardiovascular Services [address] [place] [address] MR#: [id number] Acct: [id number] Name: JOSSUE GIL Rep #: [id number] : 1955 68 From: Wily Reyna MD Primary Care: Dr. Juvencio Shrestha MD Status: R EG CLI Referring Dr: Wily Reyna MD Sex: M C Stress Test Report Date: 12/05/2023 Procedure: Pharmacologic stress nuclear imaging study Indications: Chest pain Consent: Per the patient Procedure: The patient underwent pharmacologic (Regadenoson 0.4mg ) evaluation with a peak heart rate of 57 beats per minute (37%predicted maximal heart rate) and a peak blood pressure of 168/70 mmHg. The baseline ECG demonstrated sinus bradycardia with inferolateral ST changes. The peak pharmacologic ECG demonstrated no diagnostic changes secondary to baseline abnormality. There were no cardiac dysrhythmias pretest, during pharmacologic infusion, or recovery. There was no complaint of chest discomfort during pharmacologic infusion or recovery. The patient was injected with 9.5 millicuries of technetium 99m Cardiolite and subsequently rest SPECT Cardiolite nuclear imaging was obtained in the horizontal long, vertical long, and short axis views. The patient underwent pharmacologic (Regadenoson) evaluation. The patient was injected with 32.1 millicuries of technetium 99m Cardiolite and subsequently stress SPECT Cardiolite nuclear imaging was obtained in the horizontal long, vertical long, and short axis views. A gated Cardiolite study at peak stress was obtained. The examination was stopped secondary to completion of protocol. Rest and stress SPECT Cardiolite nuclear imaging status post realignment, normalization, and attenuation correction demonstrate small reversible perfusion defect of the inferior wall suggesting ischemia. There is end systolic thickening and brightening. The gated Cardiolite study demonstrates myocardial thickening and inward wall motion. The reported LVEF is 73%. Impression: 1. Pharmacologic (Regadenoson) evaluation 2. Peak pharmacologic ECG with no diagnostic changes secondary to baseline abnormality. 3. There were no cardiac dysrhythmias pretest, during pharmacologic infusion, or recovery. 5. Reversible ischemia in the inferior wall. 6. The gated Cardiolite study reports an LVEF of 73%. This note was generated with [employer] software. It may contain incorrect words, spelling, and punctuation that were not noted in checking the note before signing. 12/11/231552 Date Wily Reyna MD CC: Dr. Wily Reyna MD; Dr. Katelyn Saeed DO; Dr. Juvencio Shrestha MD Date Dictated: 12/11/231550 Date Transcribed: 12/11/231550 Clinical Research Administrator: MONICA Signed Normal [facility] Echo Complete W/ Contraston 12-05-2023 Echo Complete W/ Contrast [facility] Cardiovascular Services [address] [place] [address] Echo Complete W/ Contrast 12/05/23 0843 MR#: [id number] Acct: [id number] Name: JOSSUE GIL Rep #: [id number] : 1955 68 From: Wily Reyna MD Attending Dr: Dr. Wily Reyna MD Status: REG CLI Ordering Dr: Wily Reyna MD Date: 12/05/23 Location: [facility] Sex: M C Admitted: Reason For Study: CAD/ASHD Procedure This was a 2D Doppler, Color Flow transthoracic echocardiogram. The study was technically difficult. Contrast injection was performed. Exam performed in department. Left Ventricle Normal LV size. Mild concentric left ventricular hypertrophy. The left ventricular ejection fraction is 60 %. No evidence for diastolic dysfunction. Right Ventricle Normal right ventricle. Atria The left atrium is moderately enlarged. Normal right atrium. Mitral Valve Trivial mitral valve insufficiency. Tricuspid Valve Mild tricuspid valve insufficiency. Right ventricular systolic pressure estimated to be 51 mmHg. Aortic Valve Trisinus/trileaflet aortic valve. Aortic sclerosis, no stenosis. Mild (1+) aortic valve insufficiency. Pulmonic Valve Mild-Moderate (1-2+) pulmonic valve insufficiency. Great Vessels Normal sized aortic root. Pericardium/Pleural No pericardial effusion. Medication Diluted definity 2ml given slow IV push to enhance endocardial definition. MMode/2D Measurements Calculations LVIDd: 4.4 cm IVSd: 1.0 cm Ao root diam: 3.5 cm LVIDs: 3.3 cm LVPWd: 1.2 cm FS: 26.0 % LAV(MOD-bp): 49.1 ml LVAd ap4: 25.6 cm2 SV(MOD-sp4): 50.1 ml LAV(MOD-bp) Indexed: 25.4 ml/m2 LVLd ap4: 6.8 cm SI(MOD-sp4): 25.9 ml/m2 LAV(MOD-sp2): 51.3 ml EDV(MOD-sp4): 77.1 ml LAV(MOD-sp4): 46.3 ml EDV(sp4-el): 81.6 ml LVAs ap4: 13.2 cm2 LVLs ap4: 5.3 cm ESV(MOD-sp4): 27.0 ml ESV(sp4-el): 27.8 ml EF(MOD-sp4): 64.9 % EF(sp4-el): 66.0 % SV(sp4-el): 53.9 ml LA A4 area: 18.5 cm2 LA dimension(2D): 4.8 cm RA A4 area: 17.2 cm2 Time Measurements MV dec time: 0.15 sec Doppler Measurements Calculations MV E max heidi: 85.6 cm/sec Lat Peak E' Heidi: 9.6 cm/sec Med Peak E' Heidi: 5.8 cm/sec MV A max heidi: 54.9 cm/sec E/E' lat: 8.9 E/E' med: 14.8 MV E/A: 1.6 MV V2 max: 97.0 cm/sec MV dec slope: 571.1 cm/sec2 Ao V2 max: 134.6 cm/sec MV max P.8 mmHg Ao max P.2 mmHg MV V2 mean: 40.1 cm/sec Ao V2 mean: 85.2 cm/sec MV mean P.83 mmHg Ao mean P.5 mmHg MV V2 VTI: 32.2 cm Ao V2 VTI: 41.5 cm AV (velocity ratio): 0.82 LV V1 max: 98.9 cm/sec PA V2 max: 80.9 cm/sec PI end-d heidi: 144.8 cm/sec LV V1 max P.9 mmHg PA V2 mean: 61.9 cm/sec LV V1 mean P.1 mmHg LV V1 mean: 68.8 cm/sec LV V1 VTI: 34.0 cm TR max heidi: 339.7 cm/sec TR max P.2 mmHg ECHO/Echo Complete W/ Contrast Interpretation Summary Mild concentric left ventricular hypertrophy. The left ventricular ejection fraction is 60 %. The left atrium is moderately enlarged. Mild tricuspid valve insufficiency. Right ventricular systolic pressure estimated to be 51 mmHg. Aortic sclerosis, no stenosis. Mild (1+) aortic valve insufficiency. Mild-Moderate (1-2+) pulmonic valve insufficiency. Ordering Physician: Wliy Reyna Referring Physician: Wily Reyna Performed By: Karyna Hogan RCS 12/10/23855 Date Wily Reyna MD CC: Dr. Wily Reyna MD; Dr. Juvencio Shrestha MD Date Dictated: 12/05/23842 Date Transcribed: 12/10/23855 Clinical Research Administrator: Signed Normal [facility] Kidney and Bladderon 024 Kidney and Bladder [facility] Imaging Services [address] [place] [address] [id number] Kidney and Bladder MR#: [id number] Acct: [id number] Name: MOSQUEJOSSUE DERAS Win Rep #: [id number] : 1955 68 From: Saul Tilley DO PCP: Dr. Juvencio Shrestha MD Status: [facility] Study: Kidney and Bladder Date of Exam: 12/05/23 Exam# [id number] [place]ing [place]: [place] [id number] INDICATION: CKD STAGE 3 EXAMINATION: Ultrasound US Kidney(s) complete (eg, kidneys and bladder) TECHNIQUE: Jackson scale and color doppler images were obtained of the kidneys. COMPARISON: FINDINGS: RIGHT KIDNEY: 9.7 x 5.0 x 4.8 cm. The cortex is 14 mm. There is no hydronephrosis. 7 mm nonobstructive stone. No focal lesion or perinephric collection is demonstrated. LEFT KIDNEY: 10.5 x 5.9 x 5.2 cm. The cortex is 14 mm. There is no hydronephrosis. No shadowing calculus, focal lesion or perinephric collection is demonstrated. URINARY BLADDER: 332 cc in volume. Borderline wall thickness. Nonvisualization of the ureteral jets. US/Kidney and Bladder IMPRESSION: Nonobstructive right renal stone. Electronically Signed: Saul Tilley DO at 20:11 EDT , CC: Dr. Wily Reyna MD; Dr. Juvencio Shrestha MD Clinical Research Administrator: Signed Normal [facility] Microalb:Creat Ratio,Random URon 10-14-2023 Creatinine [Mass/Vol] 65.90 mg/dL Normal NO RAN GE EST. [facility] Comment on above: Performed By: #### L [id number] #### [facility] [address] [place], [place], [address] MALB:CRE 15.5 mg/g CRE Normal <30 mg/g CRE [facility] Comment on above: Performed By: #### L [id number] #### [facility] [address] [place], [place], [address] MICROALBUMIN,UR 10.2 mg/L Normal NO RANGE EST. [facility] Comment on above: Performed By: #### L [id number] #### [facility] [address] [place], [place], [address] CNPNon 08-05-2023 [facility] Telephone (ARESCL) JOSSUE GIL ([id number]) 1955 M Date Time Provider Department 08/05/23 CATHERINE JEAN During your visit today, we recorded the following information about you: Andrew Ortiz 08/05/2023 1:20 PM Signed I called the patient left message to call the office to reschedule his appointment per his request due to illness. Andrew Ortiz August 05, 2023 1:19 PM Allergies As of Date: 08/05/2023 Noted Allergy Reaction ELASTIC 11/27/2009 2 - Rash ERYTHROMYCIN 11/20/2009 11 - Vomiting ERYTHROMYCIN BASE 10/07/2017 14 - Other: See Comments Z-JAMIL (AZITHROMYCIN) 11/16/2015 14 - Other: See Comments Comments: Welts on chest Date Reviewed: 07/04/2023 Reviewed by: Gabby Osborn MD - Fully Assessed Reason for Visit: [...] EVERY DAY - clotrimazole (MYCELEX) 10 mg emil Use 1 Emil as instructed five times daily. - pantoprazole [...] (HCC) [I50.9] 12/08/2009 Coronary artery disease involving mi'kmaq palacios*07/02/2017 S/P CABG (coronary artery bypass graft) [...] Fall [W19.XXXA] 02/07/2023 Encounter Status:Closed by ANDREW ORTIZ on 08/05/23 [facility] 06-24-2023 CNOV Office Visit (ARESCL ) JOSSUE GIL ([id number]) 1955 M Date Time Provider Department 06/24/23 2:30 PM CATHERINE JEAN During your visit today, we recorded the following information about you: Catherine Jean MD 06/24/2023 4:20 PM Attested Attestation signed by Gabby Osborn MD at 07/04/2023 9:34 AM Attending Note [...] providing supportive psychotherapy and coordinating care. Gabby Osborn MD Adult and Geriatric Psychiatry [facility] , [facility] PROGRESS NOTE PATIENT: Jossue Gil MRD: [id number] DATE: June 24, 2023 This document has [...] No homicidal ideation, intent or plan., No delusions/paranoia/alex ucinations Cognition: Orientation: Person, Place, Time and Situation [...] s/p multi (more content not included)... Normal [facility] Absolute lymphocyte countOrd ered By: Juvencio Shrestha on 05-26-2023 Lymphocytes Auto (Unsp spec) [#/Vol] 4.88 10*3/uL 0.83-4.51 [facility] Automated lymphocyte count a s percentage of total leukocytesOrdered By: Juvencio Shrestha on 05-26-2023 Lymphocytes/100 WBC Auto (Unsp spec) 63.2 % 19-41 [facility] Basophil percentageOrdered B y: Juvencio Shrestha on 05-26-2023 Basophil percentage 0 SEEN /hpf 0-5 [facility] Basophils/100 WBC (Bld) 0.4 % 0-1 [facility] Bilirubin [Mass/Vol] 0.30 mg/dL 0.20-1.00 [facility] Comment on above: For patients on eltr ombopag therapy, use of Dimension [place] TBIL is not recommended. Chloride [Moles/Vol] 101 mmol/L 98-107 [facility] Eosinophils/100 WBC (Bld) 1.3 % 0-5 [facility] Glucose [Mass/Vol] 135 mg/dL 74-106 [facility] Comment on above: Fasting Glucose resu lt greater than or equal to 126 mg/dL suggests DIABETES MELLITUS per A.D.A. criteria. Hemoglobin (Bld) [Mass/Vol] 10.8 g/dL 13.0-16.5 [facility] Monocytes/100 WBC (Bld) 4.4 % 0-10 [facility] Neutrophils (Bld) [#/Vol] 2.4 10*3/uL 2.0-7.7 [facility] Neutrophils/100 WBC (Bld) 30.6 % 47-70 [facility] Potassium [Moles/Vol] 3.9 mmol/L 3.5-5.1 [facility] Protein [Mass/Vol] 7.7 g/dL 6.4-8.2 [facility] Sodium [Moles/Vol] 135 mmol/L 136-145 [facility] WBC (Bld) [#/Vol] 7.7 10*3/uL 4.4-11.0 [facility] Bilirubin Test strip Ql (U)O rdered By: Juvencio Shrestha on 05-26-2023 Bilirubin Ql (U) Negative Negative [facility] Determination of erythrocyte mean corpuscular volume (MCV)Ordered By: Juvencio Shrestha on 05-26-2023 MCV (RBC) [Entitic vol] 92.9 fL 80-94 [facility] Erythrocyte distribution wid th ratioOrdered By: Juvencio Shrestha on 05-26-2023 Erythrocyte distribution width (RBC) [Ratio] 12.8 % 11.6-14.6 [facility] Erythrocyte distribution wid th standard deviationOrdered By: Juvencio Shrestha on 05-26-2023 Erythrocyte distribution width (RBC) [Entitic vol] 43.6 fL 35.1-43.9 [facility] Hematocrit Auto (Bld) [Volum e fraction]Ordered By: Juvencio Shrestha on 05-26-2023 Hematocrit (Bld) [Volume fraction] 34.2 % 40-54 [facility] Immature granulocytes/100 WB C Auto (Bld)Ordered By: Juvencio Shrestha on 05-26-2023 Immature granulocytes/100 WBC (Bld) 0.100 % 0.0-0.9 [facility] Comment on above: IG% - Immature Granu locytes (promyelocytes, myelocytes and metamyelocytes) > 1% indicates that a LEFT SHIFT is Present. Ketones Test strip Ql (U)Ord ered By: Juvencio Shrestha on 05-26-2023 Ketones Ql (U) Negative Negative [facility] Laboratory - Chemistry and C hemistry - challengeOrdered By: Juvencio Shrestha on 05-26-2023 Albumin/Globulin [Mass ratio] 1.1 {ratio} 0.9-2.4 [facility] ALP [Catalytic activity/Vol] 48 U/L 45-117 [facility] ALT [Catalytic activity/Vol] 20 U/L 16-61 [facility] CO2 [Moles/Vol] 26.0 mmol/L 21.0-32.0 [facility] Globulin (S) [Mass/Vol] 3.7 g/dL 2.2-4.2 [facility] Urea nitrogen/Creatinine [Mass ratio] 15.1 mg/mg 10-20 [facility] Laboratory - Hematology and Cell countsOrdered By: Juvencio Shrestha on 05-26-2023 MCH (RBC) [Entitic mass] 29.3 pg 27.0-32.0 [facility] MCHC (RBC) [Mass/Vol] 31.6 g/dL 32-36 [facility] Nucleated RBC/100 WBC (Bld) [Ratio] 0 % 0-5 [facility] Platelet mean volume (Bld) [Entitic vol] 10.5 fL 6.2-12.0 [facility] Platelets (Bld) [#/Vol] 245 10*3/uL 150-450 [facility] Mucus LM Ql (Urine sed)Order ed By: Juvencio Shrestha on 05-26-2023 Mucus Ql (Urine sed) 0 SEEN /hpf [facility] Nitrite Test strip Ql (U)Ord ered By: Juvencio Shrestha on 05-26-2023 Nitrite Ql (U) Negative Negative [facility] No Panel InformationOrdered By: Juvencio Shrestha on 05-26-2023 Estimated GFR (MDRD) Amer 73 mL/min >60 [facility] Comment on above: GFR Calc Estimated GFR (MDRD) Non-Af Amer 60 mL/min >60 [facility] Comment on above: Non- GFR Calc Urine Microalbumin/Creatinine Ratio 17.5 mg/g CRE <30 [facility] Urine RBC 0 SEEN /hpf 0-5 [facility] Protein Test strip Ql (U)Ord ered By: Juvencio Shrestha on 05-26-2023 Protein Ql (U) 15 mg/dl Negative [facility] RBC Auto (Bld) [#/Vol]Ordere d By: Juvencio Shrestha on 05-26-2023 RBC (Bld) [#/Vol] 3.68 10*6/uL 4.6-6.2 [facility] Serum or plasma calcium vicky urement (mass/volume)Ordered By: Juvencio Shrestha on 05-26-2023 Calcium [Mass/Vol] 9.3 mg/dL 8.5-10.1 [facility] Serum or plasma creatinine m easurement (mass/volume)Ordered By: Juvencio Shrestha on 05-26-2023 Creatinine [Mass/Vol] 1.26 mg/dL 0.70-1.30 [facility] Comment on above: The validity of the calculated GFR & GFRAA in patients over 70 years has not been determined. Clinical correlation is essential. Serum or plasma urea nitroge n measurement (mass/volume)Ordered By: Juvencio Shrestha on 05-26-2023 Urea nitrogen [Mass/Vol] 19 mg/dL 7-18 [facility] Squamous epithelial cells de tection in urine sediment by light microscopyOrdered By: Juvencio Shrestha on 05-26-2023 Epithelial cells.squamous LM Ql (Urine sed) 0 SEEN /hpf 0-5 [facility] Thin prep Papanicolaou smear with manual screeningOrdered By: Juvencio Shrestha on 05-26-2023 Thin prep Papanicolaou smear with manual screening 4.0 g/dL 3.2-5.0 [facility] Thin prep Papanicolaou smear with manual screening 16 U/L 15-37 [facility] Thin prep Papanicolaou smear with manual screening 8 5-15 [facility] Thin prep Papanicolaou smear with manual screening 13.8 mg/L NO RANGE EST. [facility] Urine blood detectionOrdered By: Juvencio Shrestha on 05-26-2023 RBC Ql (U) Negative Negative [facility] Urine clarityOrdered By: iKnjal Shrestha on 05-26-2023 Clarity (U) Clear Clear [facility] Urine color determinationOrd ered By: Juvencio Shrestha on 05-26-2023 Color (U) Yellow Yellow [facility] Urine creatinine measurement (mass/volume)Ordered By: Juvencio Shrestha on 05-26-2023 Creatinine (U) [Mass/Vol] 78.80 mg/dL NO RANGE EST. [facility] Urine glucose detectionOrder ed By: Juvencio Shrestha on 05-26-2023 Glucose Ql (U) 100 mg/dl Normal [facility] Urine leukocyte esterase det ection by dipstickOrdered By: Juvencio Shrestha on 05-26-2023 Leukocyte esterase Test strip Ql (U) 25 /ul Negative [facility] Urine pHOrdered By: Juvencio Cruz mr on 05-26-2023 pH (U) 6.0 [pH] 5.0 - 8.0 [facility] Urine sediment bacteria coun t by microscopy (number/high power field)Ordered By: Juvencio Shrestha on 05-26-2023 Bacteria LM.HPF (Urine sed) [#/Area] 0 /[HPF] None Seen [facility] Urine specific gravity measu rementOrdered By: Juvencio hSrestha on 05-26-2023 Specific gravity (U) [Rel density] 1.010 1.002-1.030 [facility] Urine urobilinogen measureme ntOrdered By: Juvencio Shrestha on 05-26-2023 Urobilinogen Ql (U) Normal mg/dl Normal [facility] Whole blood hemoglobin A1c/t otal hemoglobin ratio (mass fraction)Ordered By: Juvencio Shrestha on 05-26-2023 HbA1c (Bld) [Mass fraction] 11.0 % 3.8-5.6 [facility] Comment on above: Normal < 5.7 % Predi abetic 5.7 - 6.4 % Diabetic >or= 6.5 % Please note range changes. Absolute lymphocyte countOrd ered By: Juvencio Shrestha on 02-17-2023 Lymphocytes Auto (Unsp spec) [#/Vol] 4.17 10*3/uL 0.83-4.51 [facility] Basophil percentageOrdered B y: Juvencio Shrestha on 02-17-2023 Basophil percentage 25-50 SEEN /hpf 0-5 [facility] Basophils/100 WBC (Bld) 0.5 % 0-1 [facility] Bilirubin [Mass/Vol] 0.30 mg/dL 0.20-1.00 [facility] Comment on above: For patients on eltr ombopag therapy, use of Dimension [place] TBIL is not recommended. Chloride [Moles/Vol] 104 mmol/L 98-107 [facility] Cholesterol [Mass/Vol] 181 mg/dL <200 [facility] Comment on above: <200 mg/dL Desirable 200-240 mg/dL Borderline >240 mg/dL High Risk Eosinophils/100 WBC (Bld) 1.1 % 0-5 [facility] Glucose [Mass/Vol] 271 mg/dL 74-106 [facility] Comment on above: Glucose result great er than or equal to 200 mg/dLsuggests DIABETES MELLITUS per A.D.A. criteria. Neutrophils (Bld) [#/Vol] 5.5 10*3/uL 2.0-7.7 [facility] Neutrophils/100 WBC (Bld) 52.0 % 47-70 [facility] Potassium [Moles/Vol] 5.3 mmol/L 3.5-5.1 [facility] Protein [Mass/Vol] 7.3 g/dL 6.4-8.2 [facility] Sodium [Moles/Vol] 135 mmol/L 136-145 [facility] Triglyceride [Mass/Vol] 143 mg/dL <199 [facility] Comment on above: The drugs N-Acetylcy steine and Metamizole may falsely depress this assay.Serum Triglycerides Reference Interval Normal <150 mg/dL Borderline high 150 - 199 mg/dL High 200 - 499 mg/dL Very High > or = 500 mg/dL WBC (Bld) [#/Vol] 10.6 10*3/uL 4.4-11.0 [facility] Bilirubin Test strip Ql (U)O rdered By: Juvencio Shrestha on 02-17-2023 Bilirubin Ql (U) Negative Negative [facility] Blood erythrocytes count (nu mber/volume)Ordered By: Juvencio Shrestha on 02-17-2023 RBC (Bld) [#/Vol] 3.17 10*6/uL 4.6-6.2 [facility] Blood hemoglobin measurement (mass/volume)Ordered By: Juvencio Shrestha on 02-17-2023 Hemoglobin (Bld) [Mass/Vol] 9.7 g/dL 13.0-16.5 [facility] Blood lymphocytes/100 leukoc ytesOrdered By: Juvencio Shrestha on 02-17-2023 Lymphocytes/100 WBC (Bld) 39.2 % 19-41 [facility] Blood monocytes/100 leukocyt esOrdered By: Juvencio Shrestha on 02-17-2023 Monocytes/100 WBC (Bld) 6.7 % 0-10 [facility] Blood platelet mean volumeOr dered By: Juvencio Srhestha on 02-17-2023 Platelet mean volume (Bld) [Entitic vol] 9.9 fL 6.2-12.0 [facility] Culture, urineOrdered By: Eduardo Apple on 02-17-2023 Bacteria identified Cx Nom (U) Escherichia coli [facility] Bacteria identified Cx Nom (U) Escherichia coli [facility] Determination of erythrocyte mean corpuscular volume (MCV)Ordered By: Juvencio Shrestha on 02-17-2023 MCV (RBC) [Entitic vol] 96.8 fL 80-94 [facility] Erythrocyte sedimentation ra teOrdered By: Juvencio Shrestha on 02-17-2023 ESR (Bld) [Velocity] 36 mm/h 0-20 [facility] Folic acid serumOrdered By: Juvencio Shrestha on 02-17-2023 Folate [Mass/Vol] 7.50 ng/mL 3.1-55.4 [facility] Hematocrit Auto (Bld) [Volum e fraction]Ordered By: Juvencio Shrestha on 02-17-2023 Hematocrit (Bld) [Volume fraction] 30.7 % 40-54 [facility] Ketones Test strip Ql (U)Ord ered By: Juvencio Shrestha on 02-17-2023 Ketones Ql (U) 5 mg/dl Negative [facility] Laboratory - Chemistry and C hemistry - challengeOrdered By: Juvencio Shrestha on 02-17-2023 ALP [Catalytic activity/Vol] 76 U/L 45-117 [facility] ALT [Catalytic activity/Vol] 13 U/L 16-61 [facility] CO2 [Moles/Vol] 24.0 mmol/L 21.0-32.0 [facility] Cobalamin (Vitamin B12) [Mass/Vol] 361 pg/mL 211-911 [facility] Free T4 [Mass/Vol] 1.52 ng/dL 0.76-1.46 [facility] Globulin (S) [Mass/Vol] 3.8 g/dL 2.2-4.2 [facility] Magnesium [Mass/Vol] 1.7 mg/dL 1.6-2.6 [facility] Urea nitrogen/Creatinine [Mass ratio] 16.5 mg/mg 10-20 [facility] Laboratory - Hematology and Cell countsOrdered By: Juvencio Shrestha on 02-17-2023 Erythrocyte distribution width (RBC) [Entitic vol] 54.1 fL 35.1-43.9 [facility] Erythrocyte distribution width (RBC) [Ratio] 15.3 % 11.6-14.6 [facility] Immature granulocytes/100 WBC (Bld) 0.500 % 0.0-0.9 [facility] Comment on above: IG% - Immature Granu locytes (promyelocytes, myelocytes and metamyelocytes) > 1% indicates that a LEFT SHIFT is Present. MCH (RBC) [Entitic mass] 30.6 pg 27.0-32.0 [facility] Nucleated RBC/100 WBC (Bld) [Ratio] 0 % 0-5 [facility] MCHC Auto (RBC) [Mass/Vol]Or dered By: Juvencio Shrestha on 02-17-2023 MCHC (RBC) [Mass/Vol] 31.6 g/dL 32-36 [facility] Mucus LM Ql (Urine sed)Order ed By: Juvencio Shrestha on 02-17-2023 Mucus Ql (Urine sed) 0 SEEN /hpf [facility] Nitrite Test strip Ql (U)Ord ered By: Juvencio Shrestha on 02-17-2023 Nitrite Ql (U) Positive Negative [facility] No Panel InformationOrdered By: Juvencio Shrestha on 02-17-2023 Estimated GFR (MDRD) Amer 69 mL/min >60 [facility] Comment on above: GFR Calc Estimated GFR (MDRD) Non-Af Amer 57 mL/min >60 [facility] Comment on above: Non- GFR Calc Prostate Specific Antigen Screen < 0.01 ng/mL 0.00-4.00 [facility] Comment on above: This test was perfor med using the TPSA assay method for theAppkn[employer] chemistry system. Values obtained with differentassay methods cannot be used interchangably.When changing PSA assays in the course of monitoring apatient, additional sequential testing should be carriedout to confirm baseline values. Thyroid Stimulating Hormone (TSH) 3.69 uIU/mL 0.358-3.74 [facility] Urine Microalbumin/Creatinine Ratio 263.6 mg/g CRE <30 [facility] Vitamin D 25-Hydroxy 46.5 ng/mL [facility] Comment on above: Vitamin D 25(OH) Sta tus Range Deficiency <20 ng/mL (50nmol/L) Insufficiency 20 - 30 ng/mL (50 - 75 nmol/L) Sufficiency 30 - 100 ng/mL (75 - 250 nmol/L) Toxicity >100 ng/mL (>250 nmol/L) Platelets bldOrdered By: Kinjal Shrestha on 02-17-2023 Platelets (Bld) [#/Vol] 254 10*3/uL 150-450 [facility] Protein Test strip Ql (U)Ord ered By: Juvencio Shrestha on 02-17-2023 Protein Ql (U) 100 mg/dl Negative [facility] Serum or plasma C reactive p rotein measurement (mass/volume)Ordered By: Juvencio Shrestha on 02-17-2023 CRP [Mass/Vol] mg/L 0.0-3.0 [facility] Comment on above: C-Reactive Protein ( CRP) provides useful information for thediagnosis, therapy and monitoring of inflammatory processesand associated diseases. For the evaluation of Relative Riskfor Cardiovascular Disease, a High Sensitivity CRP (HSCRP)should be ordered. Serum or plasma albumin vicky urement (mass/volume)Ordered By: Juvencio Shrestha on 02-17-2023 Albumin [Mass/Vol] 3.5 g/dL 3.2-5.0 [facility] Serum or plasma albumin/glob ulin mass ratioOrdered By: Juvencio Shrestha on 02-17-2023 Albumin/Globulin [Mass ratio] 0.9 {ratio} 0.9-2.4 [facility] Serum or plasma calcium vicky urement (mass/volume)Ordered By: Juvencio Shrestha on 02-17-2023 Calcium [Mass/Vol] 9.5 mg/dL 8.5-10.1 [facility] Serum or plasma cholesterol in HDL measurement (mass/volume)Ordered By: Juvencio Shrestha on 02-17-2023 Cholesterol in HDL [Mass/Vol] 38 mg/dL >40 [facility] Comment on above: The drugs N-Acetylcy steine and Metamizole may falsely depress this assay. Reference Range HDL <40 mg/dL Low HDL Cholesterol HDL >or= 60 mg/dL High HDL Cholesterol Serum or plasma cholesterol in VLDL measurement (mass/volume)Ordered By: Juvencio Shrestha on 02-17-2023 Cholesterol in VLDL [Mass/Vol] 29 mg/dL 5-40 [facility] Serum or plasma creatinine m easurement (mass/volume)Ordered By: Juvencio Shrestha on 02-17-2023 Creatinine [Mass/Vol] 1.33 mg/dL 0.70-1.30 [facility] Comment on above: The validity of the calculated GFR & GFRAA in patients over 70 years has not been determined. Clinical correlation is essential. Serum or plasma low density lipoprotein (LDL) cholesterol measurement (mass/volume)Ordered By: Juvencio Shrestha on 02-17-2023 Cholesterol in LDL [Mass/Vol] 114 mg/dL 0-130 [facility] Serum or plasma urea nitroge n measurement (mass/volume)Ordered By: Juvencio Shrestha on 02-17-2023 Urea nitrogen [Mass/Vol] 22 mg/dL 7-18 [facility] Squamous epithelial cells de tection in urine sediment by light microscopyOrdered By: Juvencio Shrestha on 02-17-2023 Epithelial cells.squamous LM Ql (Urine sed) 0 SEEN /hpf 0-5 [facility] Thin prep Papanicolaou smear with manual screeningOrdered By: Juvencio Shrestha on 02-17-2023 Thin prep Papanicolaou smear with manual screening 11 U/L 15-37 [facility] Thin prep Papanicolaou smear with manual screening 7 5-15 [facility] Thin prep Papanicolaou smear with manual screening 208.0 mg/L NO RANGE EST. [facility] Urine blood detectionOrdered By: Juvencio Shrestha on 02-17-2023 RBC Ql (U) 50 /ul Negative [facility] RBC Ql (U) 0-5 SEEN /hpf 0-5 [facility] Urine clarityOrdered By: Kinjal Shrestha on 02-17-2023 Clarity (U) Sl. Cloudy Clear [facility] Urine color determinationOrd ered By: Juvencio Shrestha on 02-17-2023 Color (U) Yellow Yellow [facility] Urine creatinine measurement (mass/volume)Ordered By: Juvencio Shrestha on 02-17-2023 Creatinine (U) [Mass/Vol] 78.90 mg/dL NO RANGE EST. [facility] Urine glucose detectionOrder ed By: Juvencio Shrestha on 02-17-2023 Glucose Ql (U) 1000 mg/dl Normal [facility] Urine leukocyte esterase det ection by dipstickOrdered By: Juvencio Shrestha on 02-17-2023 Leukocyte esterase Test strip Ql (U) 500 /ul Negative [facility] Urine pHOrdered By: Juvencio Cruz mr on 02-17-2023 pH (U) 6.0 [pH] 5.0 - 8.0 [facility] Urine sediment bacteria coun t by microscopy (number/high power field)Ordered By: Juvencio Shrestha on 02-17-2023 Bacteria LM.HPF (Urine sed) [#/Area] 2 /[HPF] None Seen [facility] Urine specific gravity measu rementOrdered By: Juvencio Shrestha on 02-17-2023 Specific gravity (U) [Rel density] 1.015 1.002-1.030 [facility] Urobilinogen Auto test strip Ql (U)Ordered By: Juvencio Shrestha on 02-17-2023 Urobilinogen Ql (U) Normal mg/dl Normal [facility] Whole blood hemoglobin A1c/t otal hemoglobin ratio (mass fraction)Ordered By: Juvencio Shrestha on 02-17-2023 HbA1c (Bld) [Mass fraction] 9.3 % 3.8-5.6 [facility] Comment on above: Normal < 5.7 % Predi abetic 5.7 - 6.4 % Diabetic >or= 6.5 % Please note range changes. CNTHERAPYon 02-07-2023 CNTHERAPY OT/PT/Speech Visit (PTWS) MOSQUEJOSSUE ([id number]) 1955 M Date Time Provider Department 02/07/23 10:15 AM GERMAN MARCUM PTWS Date Time Provider Department Center 02/07/2023 10:15 AM [id number] PTWS Judie Souleymane Reason for Visit: PT Eval [747] Primary Visit Diagnosis:Fall, subsequent encounter [W19.XXXD] Allergies As of Date: 02/07/2023 Noted Allergy Reaction ELASTIC 11/27/2009 2 - Rash ERYTHROMYCIN 11/20/2009 11 - Vomiting ERYTHROMYCIN BASE 10/07/2017 14 - Other: See Comments Z-JAMIL (AZITHROMYCIN) 11/16/2015 14 - Other: See Comments Comments: Welts on chest Date Reviewed: 10/24/2022 Reviewed by: Gabby Osborn MD - Fully Assessed Prescriptions as of [...] EVERY DAY - clotrimazole (MYCELEX) 10 mg emil Use 1 Emil as instructed five times daily. - pantoprazole [...] mg ORAL Tab Take one(1) tablet daily. Normal [facility] Absolute lymphocyte countOrd ered By: Ty Oro on 12-16-2022 Lymphocytes Auto (Unsp spec) [#/Vol] 1.25 10*3/uL 0.83-4.51 [facility] Basophil percentageOrdered B y: Ty Oro on 12-16-2022 Basophils/100 WBC (Bld) 0.3 % 0-1 [facility] Chloride [Moles/Vol] 102 mmol/L 98-107 [facility] Eosinophils/100 WBC (Bld) 1.1 % 0-5 [facility] Glucose [Mass/Vol] 266 mg/dL 74-106 [facility] Comment on above: Glucose result great er than or equal to 200 mg/dLsuggests DIABETES MELLITUS per A.D.A. criteria. Neutrophils (Bld) [#/Vol] 5.3 10*3/uL 2.0-7.7 [facility] Neutrophils/100 WBC (Bld) 73.6 % 47-70 [facility] Potassium [Moles/Vol] 4.3 mmol/L 3.5-5.1 [facility] Sodium [Moles/Vol] 133 mmol/L 136-145 [facility] WBC (Bld) [#/Vol] 7.1 10*3/uL 4.4-11.0 [facility] Blood erythrocytes count (nu mber/volume)Ordered By: Ty Oro on 12-16-2022 RBC (Bld) [#/Vol] 3.25 10*6/uL 4.6-6.2 [facility] Blood hemoglobin measurement (mass/volume)Ordered By: Ty Oro on 12-16-2022 Hemoglobin (Bld) [Mass/Vol] 9.6 g/dL 13.0-16.5 [facility] Blood lymphocytes/100 leukoc ytesOrdered By: Ty Oro on 12-16-2022 Lymphocytes/100 WBC (Bld) 17.5 % 19-41 [facility] Blood monocytes/100 leukocyt esOrdered By: Ty Oro on 12-16-2022 Monocytes/100 WBC (Bld) 7.1 % 0-10 [facility] Blood platelet mean volumeOr dered By: Ty Oro on 12-16-2022 Platelet mean volume (Bld) [Entitic vol] 10.2 fL 6.2-12.0 [facility] Determination of erythrocyte mean corpuscular volume (MCV)Ordered By: Ty Oro on 12-16-2022 MCV (RBC) [Entitic vol] 97.2 fL 80-94 [facility] Glucose Glucometer (BldC) [M ass/Vol]Ordered By: Ty Oro on 12-16-2022 Glucose [Mass/Vol] 176 mg/dL 74-106 [facility] Comment on above: MANAGEMENT OF PATIEN T CARE PER NURSING PROTOCOL Hematocrit Auto (Bld) [Volum e fraction]Ordered By: Ty Oro on 12-16-2022 Hematocrit (Bld) [Volume fraction] 31.6 % 40-54 [facility] Laboratory - Chemistry and C hemistry - challengeOrdered By: Ty Oro on 12-16-2022 CO2 [Moles/Vol] 25.0 mmol/L 21.0-32.0 [facility] Urea nitrogen/Creatinine [Mass ratio] 15.3 mg/mg 10-20 [facility] Laboratory - Hematology and Cell countsOrdered By: Ty Oro on 12-16-2022 Erythrocyte distribution width (RBC) [Entitic vol] 46.9 fL 35.1-43.9 [facility] Erythrocyte distribution width (RBC) [Ratio] 13.2 % 11.6-14.6 [facility] Immature granulocytes/100 WBC (Bld) 0.400 % 0.0-0.9 [facility] Comment on above: IG% - Immature Granu locytes (promyelocytes, myelocytes and metamyelocytes) > 1% indicates that a LEFT SHIFT is Present. MCH (RBC) [Entitic mass] 29.5 pg 27.0-32.0 [facility] Nucleated RBC/100 WBC (Bld) [Ratio] 0 % 0-5 [facility] MCHC Auto (RBC) [Mass/Vol]Or dered By: Ty Oro on 12-16-2022 MCHC (RBC) [Mass/Vol] 30.4 g/dL 32-36 [facility] No Panel InformationOrdered By: Ty Oro on 12-16-2022 Estimated Creatinine Clearance Calc 47.60 ml/min [facility] Estimated GFR (MDRD) Amer 70 mL/min >60 [facility] Comment on above: GFR Calc Estimated GFR (MDRD) Non-Af Amer 58 mL/min >60 [facility] Comment on above: Non- GFR Calc Platelets bldOrdered By: Girish Oro on 12-16-2022 Platelets (Bld) [#/Vol] 218 10*3/uL 150-450 [facility] Serum or plasma calcium vicky urement (mass/volume)Ordered By: Ty Oro on 12-16-2022 Calcium [Mass/Vol] 8.7 mg/dL 8.5-10.1 [facility] Serum or plasma creatinine m easurement (mass/volume)Ordered By: Ty Oro on 12-16-2022 Creatinine [Mass/Vol] 1.31 mg/dL 0.70-1.30 [facility] Comment on above: The validity of the calculated GFR & GFRAA in patients over 70 years has not been determined. Clinical correlation is essential. Serum or plasma urea nitroge n measurement (mass/volume)Ordered By: Ty Oro on 12-16-2022 Urea nitrogen [Mass/Vol] 20 mg/dL 7-18 [facility] Thin prep Papanicolaou smear with manual screeningOrdered By: Ty Oro on 12-16-2022 Thin prep Papanicolaou smear with manual screening 6 5-15 [facility] CNOVon 10-22-2022 CNOV Office Visit (ARESCL ) JOSSUE GIL ([id number]) 1955 M Date Time Provider Department 10/22/22 2:00 PM CATHERINE JEAN ARESCRosie During your visit today, we recorded the following information about you: Catherine Jean MD 10/22/2022 4:59 PM Attested Attestation signed by Gabby Osborn MD at 10/24/2022 3:47 PM Teaching Attending [...] see resident's note for furthur details. Gabby Osborn MD Adult and Geriatric Psychiatry [facility] RESIDENT CLINIC PROGRESS NOTE PATIENT: Jossue Gil MRD: [id number] DATE: October 22, 2022 This document has [...] vehicle is with his estranged Brionna in [place]. Patient states that he met with over [...] that day, I would have taken a sip. No SI/HI/AVH. Later in the interview, patient [...] intent or plan., No perceptual disturbances like delusions/paranoia/alex ucinations. Did not appear internally stimulated Cognition: Orientation: Person, Place, Time and Situation Attention: Intact Concentration: Intact Language: Intact naming, Int (more content not included)... Normal [facility] CNOVon 08-27-2022 CNOV Office Visit (ARESCL ) JOSSUE GIL ([id number]) 1955 M Date Time Provider Department 08/27/22 1:00 PM CATHERINE JEAN ARESCL During your visit today, we recorded the following information about you: Catherine Jean MD 08/27/2022 2:44 PM Signed [facility] RESIDENT CLINIC PROGRESS NOTE PATIENT: Jossue Gil MRD: [id number] DATE: August 27, 2022 This document has [...] of his great granddaughter. Patient went to [facility] to help with taking care of the , and was away from [place] for about 3 weeks. He reports that the experience brought him great ryley and hope. I enjoyed the baby-love. Reports significant improvement in anxiety and depression [...] recent stroke (more content not included)... Normal [facility]([place])[facility] [place] 25-hydroxyvitamin D3 [Mass/Vol] 32.9 ng/mL Normal >=30.0 [facility] Comment on above: Order Comment: Speci men Type: BLOOD SPECIMEN Ordering Facility: [facility] Address: [address] [place] [phone] Result Comment: Clas sification of 25 [place] Vitamin D status: Deficiency: <= 20.0 ng/ml. Insufficiency: 21.0-29.0 ng/ml. Sufficiency: >= 30.0 ng/ml. Performed By: #### 1 989-3 #### [facility] CLIA [id number] [address] CBC W Auto Differential pane l (Bld)on 04-02-2022 Basophils (Bld) [#/Vol] 0.04 10*3/uL Normal <0.11 [facility] Comment on above: Order Comment: Speci men Type: BLOOD SPECIMEN Ordering Facility: [facility] Address: [address] [place] [address] Performed By: #### 5 7021-8 #### [facility] CLIA [id number] [address] Basophils/100 WBC (Bld) 0.5 % Normal [facility] Comment on above: Order Comment: Speci men Type: BLOOD SPECIMEN Ordering Facility: [facility] Address: [address] [address] Performed By: #### 5 7021-8 #### [facility] CLIA [id number] [address] Differential cell count method Nom (Bld) Auto Normal [facility] Comment on above: Order Comment: Speci men Type: BLOOD SPECIMEN Ordering Facility: [facility] Address: [address] [address] Performed By: #### 5 7021-8 #### [facility] CLIA [id number] [address] [facility] Eosinophils (Bld) [#/Vol] 0.34 10*3/uL Normal <0.46 [facility] Comment on above: Order Comment: Speci men Type: BLOOD SPECIMEN Ordering Facility: [facility] Address: [address] [address] Performed By: #### 5 7021-8 #### [facility] CLIA [id number] [address] Eosinophils/100 WBC (Bld) 4.5 % Normal [facility] Comment on above: Order Comment: Speci men Type: BLOOD SPECIMEN Ordering Facility: [facility] Address: [address] [address] Performed By: #### 5 7021-8 #### [facility] CLIA [id number] [address] Erythrocyte distribution width (RBC) [Ratio] 12.9 % Normal 11.5-15.0 [facility] Comment on above: Order Comment: Speci men Type: BLOOD SPECIMEN Ordering Facility: [facility] Address: [address] [place] [address] Performed By: #### 5 7021-8 #### [facility] CLIA [id number] [address] Hematocrit (Bld) [Volume fraction] 34.9 % Low 39.0-51.0 [facility] Comment on above: Order Comment: Speci men Type: BLOOD SPECIMEN Ordering Facility: [facility] Address: [address] [address] Performed By: #### 5 7021-8 #### [facility] CLIA [id number] [address] Hemoglobin (Bld) [Mass/Vol] 11.0 g/dL Low 13.0-17.0 [facility] Comment on above: Order Comment: Speci men Type: BLOOD SPECIMEN Ordering Facility: [facility] Address: [address] [address] Performed By: #### 5 7021-8 #### [facility] CLIA [id number] [address] [place] Immature granulocytes (Bld) [#/Vol] 10*3/uL Normal <0.10 [facility] Comment on above: Order Comment: Speci men Type: BLOOD SPECIMEN Ordering Facility: [facility] Address: [address] [place] [address] Performed By: #### 5 7021-8 #### [facility] CLIA [id number] [address] Immature granulocytes/100 WBC (Bld) 0.3 % Normal [facility] Comment on above: Order Comment: Speci men Type: BLOOD SPECIMEN Ordering Facility: [facility] Address: [address] [place] [address] Performed By: #### 5 7021-8 #### [facility] CLIA [id number] [address] Lymphocytes (Bld) [#/Vol] 3.16 10*3/uL Normal 1.00-4.00 [facility] Comment on above: Order Comment: Speci men Type: BLOOD SPECIMEN Ordering Facility: [facility] Address: [address] [place] [address] Performed By: #### 5 7021-8 #### [facility] CLIA [id number] [address] Lymphocytes/100 WBC (Bld) 42.2 % Normal [facility] Comment on above: Order Comment: Speci men Type: BLOOD SPECIMEN Ordering Facility: [facility] Address: [address] [place] [address] Performed By: #### 5 7021-8 #### [facility] CLIA [id number] [address] MCH (RBC) [Entitic mass] 30.2 pg Normal 26.0-34.0 [facility] Comment on above: Order Comment: Speci men Type: BLOOD SPECIMEN Ordering Facility: [facility] Address: [address] [place] [address] Performed By: #### 5 7021-8 #### [facility] CLIA [id number] [address] MCHC (RBC) [Mass/Vol] 31.5 g/dL Normal 30.5-36.0 [facility] Comment on above: Order Comment: Speci men Type: BLOOD SPECIMEN Ordering Facility: [facility] Address: [address] [address] Performed By: #### 5 7021-8 #### [facility] CLIA [id number] [address] MCV (RBC) [Entitic vol] 95.9 fL Normal 80.0-100.0 [facility] Comment on above: Order Comment: Speci men Type: BLOOD SPECIMEN Ordering Facility: [facility] Address: [address] [place] [address] Performed By: #### 5 7021-8 #### [facility] CLIA [id number] [address] Monocytes (Bld) [#/Vol] 0.48 10*3/uL Normal <0.87 [facility] Comment on above: Order Comment: Speci men Type: BLOOD SPECIMEN Ordering Facility: [facility] Address: [address] [place] [address] Performed By: #### 5 7021-8 #### [facility] CLIA [id number] [address] Monocytes/100 WBC (Bld) 6.4 % Normal [facility] Comment on above: Order Comment: Speci men Type: BLOOD SPECIMEN Ordering Facility: [facility] Address: [address] [place] [address] Performed By: #### 5 7021-8 #### [facility] CLIA [id number] [address] [place] Neutrophils (Bld) [#/Vol] 3.45 10*3/uL Normal 1.45-7.50 [facility] Comment on above: Order Comment: Speci men Type: BLOOD SPECIMEN Ordering Facility: [facility] Address: [address] [place] [address] Performed By: #### 5 7021-8 #### [facility] CLIA [id number] [address] OF [place] Neutrophils/100 WBC (Bld) 46.1 % Normal [facility] Comment on above: Order Comment: Speci men Type: BLOOD SPECIMEN Ordering Facility: [facility] Address: [address] [address] Performed By: #### 5 7021-8 #### [facility] CLIA [id number] [address] Nucleated RBC (Bld) [#/Vol] 10*3/uL Normal <0.01 [facility] Comment on above: Order Comment: Speci men Type: BLOOD SPECIMEN Ordering Facility: [facility] Address: [address] [address] Performed By: #### 5 7021-8 #### [facility] CLIA [id number] [address] Nucleated RBC/100 WBC (Bld) [Ratio] 0.0 /100 WBC Normal [facility] Comment on above: Order Comment: Speci men Type: BLOOD SPECIMEN Ordering Facility: [facility] Address: [address] [address] Performed By: #### 5 7021-8 #### [facility] CLIA [id number] [address] Platelet mean volume (Bld) [Entitic vol] 10.3 fL Normal 9.0-12.7 [facility] Comment on above: Order Comment: Speci men Type: BLOOD SPECIMEN Ordering Facility: [facility] Address: [address] [address] Performed By: #### 5 7021-8 #### [facility] CLIA [id number] [address] Platelets (Bld) [#/Vol] 234 10*3/uL Normal 150-400 [facility] Comment on above: Order Comment: Speci men Type: BLOOD SPECIMEN Ordering Facility: [facility] Address: [address] [address] Performed By: #### 5 7021-8 #### [facility] CLIA [id number] [address] RBC (Bld) [#/Vol] 3.64 10*6/uL Low 4.20-6.00 [facility] Comment on above: Order Comment: Speci men Type: BLOOD SPECIMEN Ordering Facility: [facility] Address: [address] [place] [address] Performed By: #### 5 7021-8 #### [facility] CLIA [id number] [address] WBC (Bld) [#/Vol] 7.49 10*3/uL Normal 3.70-11.00 [facility] Comment on above: Order Comment: Speci men Type: BLOOD SPECIMEN Ordering Facility: [facility] Address: [address] [place] [address] Performed By: #### 5 7021-8 #### [facility] CLIA [id number] [address] Comprehensive metabolic 2000 panelon 04-02-2022 Albumin [Mass/Vol] 4.4 g/dL Normal 3.9-4.9 [facility] Comment on above: Order Comment: Speci men Type: BLOOD SPECIMEN Ordering Facility: [facility] Address: [address] [place] [address] Performed By: #### 3 016-3, 66594-4, 2131-10 #### [facility] CLIA [id number] [address] ALP [Catalytic activity/Vol] 59 U/L Normal 38-113 [facility] Comment on above: Order Comment: Speci men Type: BLOOD SPECIMEN Ordering Facility: [facility] Address: [address] [place] [address] Performed By: #### 3 016-3, 74509-8, 2131-10 #### [facility] CLIA [id number] [address] ALT With P-5'-P [Catalytic activity/Vol] 14 U/L Normal 10-54 [facility] Comment on above: Order Comment: Speci men Type: BLOOD SPECIMEN Ordering Facility: [facility] Address: [address] [address] Performed By: #### 3 016-3, , 2131-10 #### [facility] CLIA [id number] [address] Anion gap [Moles/Vol] 10 mmol/L Normal 9-18 [facility] Comment on above: Order Comment: Speci men Type: BLOOD SPECIMEN Ordering Facility: [facility] Address: [address] [address] Performed By: #### 3 016-3, , 2131-10 #### [facility] CLIA [id number] [address] OF [facility] AST With P-5'-P [Catalytic activity/Vol] 16 U/L Normal 14-40 [facility] Comment on above: Order Comment: Speci men Type: BLOOD SPECIMEN Ordering Facility: [facility] Address: [address] [address] Performed By: #### 3 016-3, , 2131-10 #### [facility] CLIA [id number] [address] STATES OF [facility] Bilirubin [Mass/Vol] 0.2 mg/dL Normal 0.2-1.3 [facility] [place] [facility] Comment on above: Order Comment: Speci men Type: BLOOD SPECIMEN Ordering Facility: [facility] Address: [address] [address] Performed By: #### 3 016-3, , 2131-10 #### [facility] CLIA [id number] [address] STATES OF [facility] Calcium [Mass/Vol] 10.0 mg/dL Normal 8.5-10.2 [facility] Comment on above: Order Comment: Speci men Type: BLOOD SPECIMEN Ordering Facility: [facility] Address: [address] [address] Performed By: #### 3 016-3, , 2131-10 #### [facility] CLIA [id number] 1 [place] [address] [place] Chloride [Moles/Vol] 102 mmol/L Normal 97-105 [facility] [place] [facility] Comment on above: Order Comment: Speci men Type: BLOOD SPECIMEN Ordering Facility: [facility] Address: [address] [place] [address] Performed By: #### 3 016-3, , 2131-10 #### [facility] CLIA [id number] [address] [place] CO2 [Moles/Vol] 27 mmol/L Normal 22-30 [facility] Comment on above: Order Comment: Speci men Type: BLOOD SPECIMEN Ordering Facility: [facility] Address: [address] [place] [address] Performed By: #### 3 016-3, , 2131-10 #### [facility] CLIA [id number] [address] OF [facility] Creatinine [Mass/Vol] 1.11 mg/dL Normal 0.73-1.22 [facility] Comment on above: Order Comment: Speci men Type: BLOOD SPECIMEN Ordering Facility: [facility] Address: [address] [place] [address] Performed By: #### 3 016-3, , 2131-10 #### [facility] CLIA [id number] [address] OF [facility] ESTIMATED GLOMERULAR FILTRATION RATE 73 mL/min/1.73m??? Normal >=60 [facility] Comment on above: Order Comment: Speci men Type: BLOOD SPECIMEN Ordering Facility: [facility] Address: [address] [place] [address] Result Comment: Naomi mated Glomerular Filtration Rate [...] actual GFR. Performed By: #### 3 016-3, 12886-8, 2131-10 #### [facility] CLIA [id number] 1 [place] [address] [place] Glucose [Mass/Vol] 278 mg/dL High 74-99 [facility] Comment on above: Order Comment: Kendrick quezada Type: BLOOD SPECIMEN Ordering Facility: [facility] Address: [address] [phone] Result Comment: The [place] [employer] (ADA) provides guidance for cutoff [...] Standards of Medical Care in Diabetes 2016, [place] [employer]. Diabetes Care. 2016.39(Suppl 1). Performed By: #### 3 016-3, , 2131-10 #### [facility] CLIA [id number] 1 [place] [address] [place] Potassium [Moles/Vol] 5.6 mmol/L High 3.7-5.1 [facility] Comment on above: Order Comment: Kendrick quezada Type: BLOOD SPECIMEN Ordering Facility: [facility] Address: [address] [phone] Performed By: #### 3 016-3, 07543-3, 2131-10 #### [facility] CLIA [id number] 1 [place] [address] [place] Protein [Mass/Vol] 6.8 g/dL Normal 6.3-8.0 [facility] Comment on above: Order Comment: Kendrick quezada Type: BLOOD SPECIMEN Ordering Facility: [facility] Address: [address] [place], [place] [phone] Performed By: #### 3 016-3, , 2131-10 #### [facility] CLIA [id number] [address] STATES OF [facility] Sodium [Moles/Vol] 139 mmol/L Normal 136-144 [facility] Comment on above: Order Comment: Speci men Type: BLOOD SPECIMEN Ordering Facility: [facility] Address: [address] [address] Performed By: #### 3 016-3, , 2131-10 #### [facility] CLIA [id number] [address] STATES OF [facility] Urea nitrogen [Mass/Vol] 17 mg/dL Normal 9-24 [facility] Comment on above: Order Comment: Speci men Type: BLOOD SPECIMEN Ordering Facility: [facility] Address: [address] [place] [address] Performed By: #### 3 016-3, , 2131-10 #### [facility] CLIA [id number] [address] [place] TSH SerPl-aCncon 04-02-2022 TSH Qn 0.212 m[IU]/L Low 0.270-4.200 [facility] Comment on above: Order Comment: Speci men Type: BLOOD SPECIMEN Ordering Facility: [facility] Address: [address] [address] Performed By: #### 3 016-3, , 2131-10 #### [facility] CLIA [id number] 1 [place] [address] [place] Vit B12 SerPl-mCncon 023 Cobalamin (Vitamin B12) [Mass/Vol] 580 pg/mL Normal 232-1245 [facility] Comment on above: Order Comment: Speci men Type: BLOOD SPECIMEN Ordering Facility: [facility] Address: [address] [address] Performed By: #### 3 016-3, , 2131-10 #### [facility] CLIA [id number] [address] [place] Absolute lymphocyte counton 10-16-2021 Lymphocytes Auto (Unsp spec) [#/Vol] 2.80 10*3/uL 0.83-4.51 [facility] Work Phone: Basophil percentageon 2021 Basophil percentage 0 SEEN /hpf 0-5 [facility] Work Phone: Basophils/100 WBC (Bld) 0.3 % 0-1 [facility] Work Phone: Bilirubin [Mass/Vol] 0.30 mg/dL 0.20-1.00 [facility] Work Phone: Comment on above: For patients on eltr ombopag therapy, use of Dimension [place] TBIL is not recommended. Chloride [Moles/Vol] 107 mmol/L 98-107 [facility] Work Phone: Cholesterol [Mass/Vol] 148 mg/dL <200 [facility] Work Phone: Comment on above: <200 mg/dL Desirable 200-240 mg/dL Borderline >240 mg/dL High Risk Eosinophils/100 WBC (Bld) 2.5 % 0-5 [facility] Work Phone: Glucose [Mass/Vol] 80 mg/dL 74-106 [facility] Work Phone: Neutrophils (Bld) [#/Vol] 3.3 10*3/uL 2.0-7.7 [facility] Work Phone: Neutrophils/100 WBC (Bld) 49.3 % 47-70 [facility] Work Phone: Potassium [Moles/Vol] 5.0 mmol/L 3.5-5.1 [facility] Work Phone: Protein [Mass/Vol] 7.7 g/dL 6.4-8.2 [facility] Work Phone: Sodium [Moles/Vol] 141 mmol/L 136-145 [facility] [facility] Work Phone: Triglyceride [Mass/Vol] 104 mg/dL <199 [facility] Work Phone: Comment on above: The drugs N-Acetylcy steine and Metamizole may falsely depress this assay.Serum Triglycerides Reference Interval Normal <150 mg/dL Borderline high 150 - 199 mg/dL High 200 - 499 mg/dL Very High > or = 500 mg/dL WBC (Bld) [#/Vol] 6.7 10*3/uL 4.4-11.0 [facility] Work Phone: Bilirubin Test strip Ql (U)o n 10-16-2021 Bilirubin Ql (U) Negative Negative [facility] Work Phone: [phone] Blood erythrocytes count (nu mber/volume)on 10-16-2021 RBC (Bld) [#/Vol] 3.55 10*6/uL 4.6-6.2 [facility] Work Phone: Blood hemoglobin measurement (mass/volume)on 10-16-2021 Hemoglobin (Bld) [Mass/Vol] 11.1 g/dL 13.0-16.5 [facility] Work Phone: Blood lymphocytes/100 leukoc yteson 10-16-2021 Lymphocytes/100 WBC (Bld) 41.5 % 19-41 [facility] Work Phone: Blood monocytes/100 leukocyt eson 10-16-2021 Monocytes/100 WBC (Bld) 6.1 % 0-10 [facility] Work Phone: Blood platelet mean volumeon 10-16-2021 Platelet mean volume (Bld) [Entitic vol] 10.6 fL 6.2-12.0 [facility] Work Phone: [phone] Determination of erythrocyte mean corpuscular volume (MCV)on 10-16-2021 MCV (RBC) [Entitic vol] 94.9 fL 80-94 [facility] Work Phone: Erythrocyte sedimentation ra hawk 10-16-2021 ESR (Bld) [Velocity] 9 mm/h 0-20 [facility] Work Phone: [phone] Hematocrit Auto (Bld) [Volum e fraction]on 10-16-2021 Hematocrit (Bld) [Volume fraction] 33.7 % 40-54 [facility] Work Phone: [phone] Ketones Test strip Ql (U)on 10-16-2021 Ketones Ql (U) Negative Negative [facility] Work Phone: [phone] Laboratory - Chemistry and C hemistry - challengeon 10-16-2021 ALP [Catalytic activity/Vol] 53 U/L 45-117 [facility] Work Phone: [phone] ALT [Catalytic activity/Vol] 21 U/L 16-61 [facility] Work Phone: [phone] CO2 [Moles/Vol] 27.0 mmol/L 21.0-32.0 [facility] Work Phone: [phone] Cobalamin (Vitamin B12) [Mass/Vol] 534 pg/mL 211-911 [facility] Work Phone: [phone] Free T4 [Mass/Vol] 1.40 ng/dL 0.76-1.46 [facility] Work Phone: [phone] Globulin (S) [Mass/Vol] 3.8 g/dL 2.2-4.2 [facility] Work Phone: [phone] Magnesium [Mass/Vol] 1.8 mg/dL 1.6-2.6 [facility] Work Phone: [phone] Urea nitrogen/Creatinine [Mass ratio] 20.9 mg/mg 10-20 [facility] Work Phone: [phone] Laboratory - Hematology and Cell countson 10-16-2021 Erythrocyte distribution width (RBC) [Entitic vol] 43.7 fL 35.1-43.9 [facility] Work Phone: [phone] Erythrocyte distribution width (RBC) [Ratio] 12.5 % 11.6-14.6 [facility] Work Phone: [phone] Immature granulocytes/100 WBC (Bld) 0.300 % 0.0-0.9 [facility] Work Phone: Comment on above: IG% - Immature Granu locytes (promyelocytes, myelocytes and metamyelocytes) > 1% indicates that a LEFT SHIFT is Present. MCH (RBC) [Entitic mass] 31.3 pg 27.0-32.0 [facility] Work Phone: Nucleated RBC/100 WBC (Bld) [Ratio] 0 % 0-5 [facility] Work Phone: [phone] MCHC Auto (RBC) [Mass/Vol]on 10-16-2021 MCHC (RBC) [Mass/Vol] 32.9 g/dL 32-36 [facility] Work Phone: Mucus LM Ql (Urine sed)on Mucus Ql (Urine sed) 0 SEEN /hpf [facility] Work Phone: [phone] Nitrite Test strip Ql (U)on 10-16-2021 Nitrite Ql (U) Negative Negative [facility] Work Phone: [phone] Panel Informationon 10-16 Estimated GFR (MDRD) Amer 82 mL/min >60 [facility] Work Phone: Comment on above: GFR Calc Estimated GFR (MDRD) Non-Af Amer 68 mL/min >60 [facility] Work Phone: Comment on above: Non- GFR Calc Thyroid Stimulating Hormone (TSH) 1.89 uIU/mL 0.358-3.74 [facility] Work Phone: [phone] Urine Microalbumin/Creatinine Ratio 13.2 mg/g CRE <30 [facility] Work Phone: [phone] Platelets bldon 10-16-2021 Platelets (Bld) [#/Vol] 223 10*3/uL 150-450 [facility] Work Phone: [phone] Protein Test strip Ql (U)on 10-16-2021 Protein Ql (U) 15 mg/dl Negative [facility] Work Phone: [phone] Serum or plasma C reactive p rotein measurement (mass/volume)on 10-16-2021 CRP [Mass/Vol] mg/L 0.0-3.0 [facility] Work Phone: Comment on above: C-Reactive Protein ( CRP) provides useful information for thediagnosis, therapy and monitoring of inflammatory processesand associated diseases. For the evaluation of Relative Riskfor Cardiovascular Disease, a High Sensitivity CRP (HSCRP)should be ordered. Serum or plasma albumin vicky urement (mass/volume)on 10-16-2021 Albumin [Mass/Vol] 3.9 g/dL 3.2-5.0 [facility] Work Phone: Serum or plasma albumin/glob ulin mass ratioon 10-16-2021 Albumin/Globulin [Mass ratio] 1.0 {ratio} 0.9-2.4 [facility] Work Phone: Serum or plasma calcium vicky urement (mass/volume)on 10-16-2021 Calcium [Mass/Vol] 9.2 mg/dL 8.5-10.1 [facility] Work Phone: Serum or plasma cholesterol in HDL measurement (mass/volume)on 10-16-2021 Cholesterol in HDL [Mass/Vol] 55 mg/dL >40 [facility] Work Phone: Comment on above: The drugs N-Acetylcy steine and Metamizole may falsely depress this assay. Reference Range HDL <40 mg/dL Low HDL Cholesterol HDL >or= 60 mg/dL High HDL Cholesterol Serum or plasma cholesterol in VLDL measurement (mass/volume)on 10-16-2021 Cholesterol in VLDL [Mass/Vol] 21 mg/dL 5-40 [facility] Work Phone: Serum or plasma creatinine m easurement (mass/volume)on 10-16-2021 Creatinine [Mass/Vol] 1.15 mg/dL 0.70-1.30 [facility] Work Phone: Comment on above: The validity of the calculated GFR & GFRAA in patients over 70 years has not been determined. Clinical correlation is essential. Serum or plasma low density lipoprotein (LDL) cholesterol measurement (mass/volume)on 09-06-2022 Cholesterol in LDL [Mass/Vol] 72 mg/dL 0-130 [facility] Work Phone: Serum or plasma urea nitroge n measurement (mass/volume)on 10-16-2021 Urea nitrogen [Mass/Vol] 24 mg/dL 7-18 [facility] Work Phone: Squamous epithelial cells de tection in urine sediment by light microscopyon 10-16-2021 Epithelial cells.squamous LM Ql (Urine sed) 0-5 SEEN /hpf 0-5 [facility] Work Phone: Thin prep Papanicolaou smear with manual screeningon 10-16-2021 Thin prep Papanicolaou smear with manual screening 10 U/L 15-37 [facility] Work Phone: Thin prep Papanicolaou smear with manual screening 7 5-15 [facility] Work Phone: Thin prep Papanicolaou smear with manual screening 22.4 mg/L NO RANGE EST. [facility] Work Phone: Urine blood detectionon - RBC Ql (U) Negative Negative [facility] Work Phone: RBC Ql (U) 0 SEEN /hpf 0-5 [facility] Work Phone: Urine clarityon 10-16-2021 Clarity (U) Clear Clear [facility] Work Phone: Urine color determinationon 10-16-2021 Color (U) Yellow Yellow [facility] Work Phone: Urine creatinine measurement (mass/volume)on 10-16-2021 Creatinine (U) [Mass/Vol] 170.00 mg/dL NO RANGE EST. [facility] Work Phone: Urine glucose detectionon Glucose Ql (U) 50 mg/dl Normal [facility] Work Phone: Urine leukocyte esterase det ection by dipstickon 10-16-2021 Leukocyte esterase Test strip Ql (U) 25 /ul Negative [facility] Work Phone: Urine pHon 10-16-2021 pH (U) 5.0 [pH] 5.0 - 8.0 [facility] Work Phone: Urine sediment bacteria coun t by microscopy (number/high power field)on 10-16-2021 Bacteria LM.HPF (Urine sed) [#/Area] 0 /[HPF] None Seen [facility] Work Phone: Urine specific gravity measu rementon 10-16-2021 Specific gravity (U) [Rel density] 1.020 1.002-1.030 [facility] Work Phone: Urobilinogen Auto test strip Ql (U)on 10-16-2021 Urobilinogen Ql (U) Normal mg/dl Normal [facility] Work Phone: Whole blood hemoglobin A1c/t otal hemoglobin ratio (mass fraction)on 10-16-2021 HbA1c (Bld) [Mass fraction] 7.4 % Abnormal 3.8 - 5.6 % [facility] Work Phone: Comment on above: Normal < 5.7 % Predi abetic 5.7 - 6.4 % Diabetic >or= 6.5 % Please note range changes. OBSOLETEon 12-11-2020 OBSOLETE Refill (NEADFV) JOSSUE GIL ([id number]) 1955 M Date Time Provider Department 12/11/20 SAMY DAY SILVERIO During your visit today, we recorded the following information about you: Allergies As of Date: 12/11/2020 Noted Allergy Reaction ELASTIC 11/27/2009 2 - Rash ERYTHROMYCIN 11/20/2009 11 - Vomiting ERYTHROMYCIN BASE 10/07/2017 14 - Other: See Comments JohnJAMIL (AZITHROMYCIN) 11/16/2015 14 - Other: See Comments Comments: Marciano on chest Date Reviewed: 11/14/2020 Reviewed by: Anika Moore MA - Fully Assessed Reason for Visit: Refill Request [94] Order(s):atorvastatin (LIPITOR) 80 mg tabletTAKE ONE TABLET BY MOUTH EVERY DAYDisp: 90 tabletRfl: 0 Prescriptions as of 12/11/2020 - atorvastatin (LIPITOR) 80 mg tablet TAKE ONE TABLET BY MOUTH EVERY DAY - clotrimazole (MYCELEX) 10 mg emil Use 1 Emil as instructed five times daily. - gabapentin [...] (HCC) [I50.9] 12/08/2009 Coronary artery disease involving mi'kmaq palacios*07/02/2017 S/P CABG (coronary artery bypass graft) [...] Encounter Status:Closed by SAMY DAY on 12/11/20 [facility] BRIEF OP NOTon 07-24-2020 BRIEF OP NOT HNO ID: [id number] Author: German Ku MD Service: Vascular Surgery Author Type: Resident Type: Brief Op Note Filed: 07/24/2020 2:23 PM Note Text: BRIEF OPERATIVE / PROCEDURE NOTE LOG ID: [id number] Surgery/Procedure Date: 07/24/2020 Incision/Procedure Start Time: 12:32 PM Incision Close/Procedure End Time: 1:37 PM Surgeon(s)/Proceduralis t(s) and Machinery Repair Maintenance Supervisor(s): Surgeon(s) and Role: * Cornelio Ritter MD [...] loss POST-OP/POST-PROCEDURE DIAGNOSIS: Same as Preop SIGNATURE: German Ku MD PATIENT NAME: Jossue Gil DATE: July 24, 2020 TIME: 2:14 PM Normal [facility] Basic Metabolic Panlon 07-24 Anion gap [Moles/Vol] 11 mmol/L Normal 9-18 [facility] Comment on above: Performed By: #### C BC, BMP #### [place] [phone] Calcium [Mass/Vol] 9.6 mg/dL Normal 8.5-10.5 [facility] Comment on above: Performed By: #### C BC, BMP #### [place] [phone] Chloride [Moles/Vol] 106 mmol/L Normal 98-110 [facility] Comment on above: Performed By: #### C BC, BMP #### [place] [phone] CO2 [Moles/Vol] 24 mmol/L Normal 23-32 [facility] Comment on above: Performed By: #### C BC, BMP #### [place] [phone] Creatinine [Mass/Vol] 1.06 mg/dL Normal 0.70-1.40 [facility] Comment on above: Performed By: #### C BC, BMP #### [place] [phone] eGFR- Amer. >60 Normal >60 [facility] Comment on above: Performed By: #### C BC, BMP #### [place] [phone] eGFR-All Other Races >60 Normal >60 [facility] Comment on above: Result Comment: eGFR (Estimated [...] Performed By: #### C BC, BMP #### [place] [phone] Glucose [Mass/Vol] 134 mg/dL High 65-100 [facility] Comment on above: Performed By: #### C FANTA, BMP #### [place] [phone] Potassium [Moles/Vol] 4.4 mmol/L Normal 3.5-5.0 [facility] Comment on above: Performed By: #### C BC, BMP #### [place] [phone] Sodium [Moles/Vol] 141 mmol/L Normal 135-146 [facility] Comment on above: Performed By: #### C BC, BMP #### [place] [phone] Urea nitrogen [Mass/Vol] 20 mg/dL Normal 10-25 [facility] Comment on above: Performed By: #### C BC, BMP #### [phone] CBCon 07-24-2020 Absolute nRBC <0.01 Normal <0.01 [facility] Comment on above: Performed By: #### C BC, BMP #### [place] [phone] Erythrocyte distribution width (RBC) [Ratio] 12.5 % Normal 11.5-15.0 [facility] Comment on above: Performed By: #### C FANTA, BMP #### [place] [phone] Hematocrit (Bld) [Volume fraction] 33.8 % Low 39.0-51.0 [facility] Comment on above: Performed By: #### C FANTA, BMP #### [place] [phone] Hemoglobin (Bld) [Mass/Vol] 11.2 g/dL Low 13.0-17.0 [facility] Comment on above: Performed By: #### C FANTA, BMP #### [place] [phone] MCH 30.9 pG Normal 26.0-34.0 [facility] Comment on above: Performed By: #### C FANTA, BMP #### [place] [phone] MCHC (RBC) [Mass/Vol] 33.1 g/dL Normal 30.5-36.0 [facility] Comment on above: Performed By: #### C FANTA, BMP #### [place] [phone] MCV (RBC) [Entitic vol] 93.1 fL Normal 80.0-100.0 [facility] Comment on above: Performed By: #### C FANTA, BMP #### [place] [phone] Platelet mean volume (Bld) [Entitic vol] 10.1 fL Normal 9.0-12.7 [facility] Comment on above: Performed By: #### C FANTA, BMP #### [place] [phone] Platelets (Bld) [#/Vol] 222 10*3/uL Normal 150-400 [facility] Comment on above: Performed By: #### C FANTA, BMP #### [address] [place] [address] RBC (Bld) [#/Vol] 3.63 10*6/uL Low 4.20-6.00 [facility] Comment on above: Performed By: #### C , BMP #### [facility] [address] [place] [address] WBC (Bld) [#/Vol] 6.95 10*3/uL Normal 3.70-11.00 [facility] Comment on above: Performed By: #### C FANTA, BMP #### [place] [id number] [place] [address] NURSING PROGon 07-24-2020 NURSING PROG HNO ID: [id number] Author: Yady Carrasco RN Service: Nursing Author [...] Call light within reach. 1930- updated on picker/puller time. 1954-Discharge instructions reviewed with patient. Pt [...] no hematoma noted. Brionna providing ride home. Normal [facility] OPERATIVE NOon 07-24-2020 OPERATIVE NO HNO ID: [id number] Author: Cornelio Ritter MD Service: Vascular Surgery Author Type: Physician Type: Operative Report Filed: 07/25/2020 7:35 AM Note Text: OPERATIVE/PROCEDURE REPORT LOG ID: [id number] Surgery/Procedure Date: 07/24/2020 Incision/Procedure Start Time: see brief op note Incision Close/Procedure End Time: Surgeon(s)/Proceduralis t(s) and Machinery Repair Maintenance Supervisor(s): Surgeon(s) and Role: * Cornelio Ritter MD - Primary No Additional Staff PROCEDURE INDICATION: 65 year old male with right leg digit 1 tissue loss w ingrown toenail presents for angiogram possible intervention after a discussion of the risks/benefits/alternat chaitanya. INTERVENTIONAL PROCEDURE: Ultrasound-guided left common femoral access Aorta and pelvic angiogram right lower extremity angiogram Balloon angioplasty of SFA and popliteal with 4mm dcb Anesthesia: Procedural Sedation PROCEDURAL DETAILS The patient was taken to the cath lab tech and laid supine on the table. After [...] guidance, and a micropuncture system, the left tongue trimmer was accessed. A 6-Hungarian sheath was exchanged into the DIE BARBER using and a Contra catheter was advanced [...] DATE: 07/24/2020 TIME: 7:33 AM PAGER/CONTACT #: [facility] 06-22-2020 SATISH Telephone (BLAIR) MOSQUEJOSSUE DERAS ([id number]) 1955 Date Time Provider Department 06/22/20 BETTINA SIDDIQUI During your visit today, we recorded the following information about you: Bettina Siddiqui APRN.[facility] 06/22/2020 2:54 PM Signed Stress test normal, [...] (HCC) [I50.9] 12/08/2009 Coronary artery disease involving mi'kmaq palacios*07/02/2017 S/P CABG (coronary artery bypass graft) [Z95.1] 07/02/2017 Pure hypercholesterolemia [E78.00] 01/05/2018 Essential hypertension [I10] 01/05/2018 Lacunar infarct, acute (HCC) [I63.81] 03/03/2019 Cerebral infarction (HCC) [I63.9] 03/29/2019 Intracranial vascular stenosis [I67.9] 03/29/2019 Polyneuropathy [G62.9] 03/29/2019 Type 2 diabetes mellitus with diabetic polyneur*03/29/2019 CVA (cerebral vascular accident) (HCC) [I63.9] 05/29/2019 Encounter Status:Closed by BETTINA SIDDIQUI on 06/22/20 [facility] 06-15-2020 ALLIED HEALTH HNO ID: [id number] Author: HUYEN Del Cid Service: ? Author Type: Pipeline Dispatch Operator Type: Allied Health Filed: 06/15/2020 3:28 PM [...] Del Cid June 15, 2020 3:27 PM Normal [facility] CTA AORTA/FEM RUNOFF WWOon 0 06-15-2020 [...] - The dorsalis pedis artery is patent. Clinical Research Administrator: ASHELY Transcribe Date/Time: Jun 16 2020 11:05P Dictated by : NANCY BARNEY MD This examination was interpreted (more content not included)... [facility] NURSING PROGon 06-15-2020 NURSING PROG HNO ID: [id number] Author: Laura Stone RN Service: Nursing Author [...] DATE: June 15, 2020 TIME: 2:50 PM [facility] Vital Signs Date Time Vital Sign Value Performing Clinician Faci lity 12-16-2022 15:07-0500 Diastolic blood pressure 52 mm[Hg] [facility] 12-16-2022 15:07-0500 Systolic blood pressure 155 mm[Hg] [facility] 12-16-2022 12:24-0500 Body height 165.1 cm [facility] 12-16-2022 12:24-0500 Body mass index (BMI) [Ratio] 33.9 kg/m2 [facility] 12-16-2022 12:24-0500 Body temperature 97.6 [degF] [facility] 12-16-2022 12:240500 Body weight 92.4 kg [facility] 12-16-2022 12:24-0500 Heart rate 57 /min [facility] 12-16-2022 12:24-0500 Respiratory rate 18 /min [facility] 12-16-2022 12:24-0500 SaO2% (BldA) [Mass fraction] 99 % [facility] Encounters Encounter Date Encounter Type Care Provider Facility Start: 08-06-2024 End: 08-06-[address] Juvencio Shrestha MD Work Phone: -[facility] [place] Start: 08-06-2024 End: 08-06-[address] Juvencio Shrestha MD -[facility] [place] Work Phone: Start: 08-06-2024 End: 08-06-2024 ambulatory Juvencio Shrestha Facility:[facility] Start: 03-15-2024 ambulatory [facility] Facility: [facility] Start: 12-17-2023 End: 12-17-2023 ambulatory Wily Axel Facility:[facility] Start: 12-16-2023 ambulatory Wily Axel [facility] Start: 12-16-2023 End: 12-17-2023 ambulatory Wily Axel Facility:[facility] Start: 12-15-2023 ambulatory Wily Axel Facility:[facility] Start: 12-11-2023 ambulatory Katelyn Saeed Facility: [facility] Start: 12-10-2023 ambulatory Juvencio Shrestha [facility] Start: 12-05-2023 ambulatory Wily Axel [facility] Start: 12-05-2023 ambulatory Wily Axel [facility] Start: 12-05-2023 End: 12-05-2023 ambulatory Katelyn Saeed Facility:[facility] Start: 10-14-2023 End: 10-14-2023 ambulatory Katelyn Lee Facility:[facility] Start: 09-10-2023 ambulatory Daniel Clifford Facilit y:[facility] Start: 09-08-2023 ambulatory Wily Axel Facility:[facility] Start: 08-05-2023 Telephone encounter Catherine kumar MD Work Phone: [facility] Comment on above: Appointment Start: 06-24-2023 End: 06-24-2023 ambulatory GASAN NEMR Facility:[facility] Start: 06-24-2023 End: 06-24-2023 Patient encounter procedure Catherine Jean MD Work Phone: [facility] Comment on above: Severe episode of re current major depressive disorder, without psychotic features (HCC) (Primary Dx); Generalized anxiety disorder; PTSD (post-traumatic stress disorder); Alcohol use disorder in remission Start: 05-26-2023 End: 05-26-2023 ambulatory [facility] Work Phone: Start: 05-26-2023 End: 05-26-2023 Patient encounter procedure [facility] [place] Work Phone: Start: 02-17-2023 End: 02-17-2023 ambulatory [facility] Work Phone: Start: 02-17-2023 End: 02-17-2023 Patient encounter procedure [facility] Work Phone: Start: 02-07-2023 End: 02-07-2023 ambulatory GASAN NEMR Facility:[facility] Start: 12-16-2022 End: 12-16-2022 Emergency department patient visit [facility] Work Phone: Start: 10-22-2022 End: 10-22-2022 ambulatory GASAN NEMR Facility:[facility] Start: 10-21-2022 Refill Catherine bell MD Work Phone: [facility] Comment on above: Refill Request (brian pro) Start: 08-27-2022 End: 08-27-2022 [facility] Start: 08-27-2022 End: 08-27-2022 Patient encounter procedure Catherine Jean MD Work Phone: [facility] Comment on above: Severe episode of re current major depressive disorder, without psychotic features (HCC) (Primary Dx); Generalized anxiety disorder; PTSD (post-traumatic stress disorder) Start: 06-05-2022 Refill Catherine bell MD Work Phone: [facility] Comment on above: Refill Request Start: 04-02-2022 End: 04-03-2022 [facility] Facility:[facility] Start: 03-05-2022 End: 03-05-2022 Patient encounter procedure Catherine Jean MD Work Phone: [facility] Comment on above: Severe episode of re current major depressive disorder, without psychotic features (HCC) (Primary Dx); PTSD (post-traumatic stress disorder); Generalized anxiety disorder Start: 02-20-2022 Chart abstracting Brooks navarro RN Work Phone: [facility] Comment on above: Outside Lab Results Start: 01-23-2022 Refill Catherine bell MD Work Phone: [facility] Comment on above: Refill Request Start: 01-22-2022 End: 01-22-2022 Patient encounter procedure Catherine Jean MD Work Phone: [facility] Comment on above: Severe episode of re current major depressive disorder, without psychotic features (HCC) (Primary Dx); Generalized anxiety disorder; PTSD (post-traumatic stress disorder); Unspecified severe protein-calorie malnutrition (HCC) Start: 10-16-2021 End: 10-16-2021 ambulatory [facility] Work Phone: Start: 10-16-2021 End: 10-16-2021 Patient encounter procedure [facility] [place] Procedures Date Procedure Procedure Detail Performing Clinician Start: 08-06-2024 Assay of prostate specific antigen total Dr. Juvencio Shrestha MD Work Phone: Comment on above: This test was perfor med using the [employer] tPSA method. Measured values of a patient sample can vary depending on the testing procedure used. PSA values determined on patient samples by different testing procedures cannot be used interchangeably. If there is a change in PSA assays while monitoring therapy, sequential testing should be performed to confirm baseline values. Start: 08-06-[address] Juvencio Shrestha MD Work Phone: Comment on above: Performed at: [place] [id number] Director: Luisito Guadarrama PhD, Phone: [phone] Start: 08-06-[address] Manolo Shrestha MD Work Phone: Comment on above: No monoclonality det ected. Start: 08-06-2024 Urnls dip stick/tabl et reagent auto microscopy Dr. Juvencio Shrestha MD Work Phone: Start: 08-06-2024 Vitamin D, 25-hydrox y measurement Dr. Juvencio Shrestha MD Work Phone: Comment on above: Vitamin D StatusDefi ciency: <20 ng/mL (50nmol/L)Insufficiency: 20-30 ng/mL (50-75 nmol/L)Sufficiency: 30-100 ng/mL (75-250 nmol/L)Toxicity: >100 ng/mL (>250 nmol/L) Start: 02-17-2023 Urine culture Start: 10-16-2021 Hemoglobin A1c/Hemoglobin.total in Blood External Provider Start: 07-28-2018 Colonoscopy Catherine kumar MD Work Phone: Start: 07-02-2017 History of coronary artery bypass grafting S/P CABG (coronary artery bypass graft) Catherine Jean MD Work Phone: Bacteria identified in Urine by Culture History of coronary artery bypass grafting History of coronary artery bypass graft Dr. Juvencio Shrestha MD Work Phone: Comment on above: History of CABG in 2 010 with BRADFORD to the LAD and vein grafts to the right posterior lateral ventricular branch, RPDA, obtuse marginal and diagonal. Plan of Treatment Date Care Activity Detail Author Start: 08-05-2025 PROSTATE CANCER SCREENING DISCUSSION PROSTATE CANCER SCREENING DISCUSSION [facility] Start: 10-12-2023 Influenza vaccination Influenz a Vaccine (Season Ended) [facility] Start: 08-05-2023 End: 08-05-2023 Patient encounter procedure 08/05/2023 2:30 PM EDT Office Visit [facility] [address] [place], [place] [id number] Catherine Jean MD [address] [place] [place], [place] [id number] follow up [facility] Comment on above: follow up Start: 07-29-2023 Colonoscopy COLONOSCOPY [facility] Start: 07-29-2023 COLORECTAL CANCER SCREENING COLORECTAL CANCER SCREENING [facility] Start: 07-29-2023 Screening for malign ant neoplasm of colon [facility] Start: 02-10-2023 Advance Directive Discussion Advance Directive Discussion [facility] Start: 12-16-2022 [facility] Start: 10-11-2022 Covid-19 Vaccine ( season) Covid-19 Vaccine () [facility] Start: 10-11-2022 Influenza vaccination [facility] Start: 04-15-2022 Hemoglobin A1c measurement HbA1C [facility] Start: 04-15-2022 Hemoglobin A1c/Hemoglobin.total in Blood HBA1C [facility] Start: 02-10-2022 ADVANCE DIRECTIVE DISCUSSION ADVANCE DIRECTIVE DISCUSSION [facility] Start: 01-22-2022 End: 03-24-2022 25-hydroxyvitamin D3 [Mass/volume] in Serum or Plasma VITAMIN D 25 HYDROXY Lab Routine Severe episode of recurrent major depressive disorder, without psychotic features (HCC) Unspecified severe protein-calorie malnutrition (HCC) Expected: 01/22/2022, Expires: 03/24/2022 [facility] Work Phone: Comment on above: Expected: 01/22/2022 , Expires: 03/24/2022 Start: 01-22-2022 End: 03-24-2022 CBC panel - Blood by Automated count CBC Lab Routine Severe episode of recurrent major depressive disorder, without psychotic features (HCC) Expected: 01/22/2022 (Approximate), Expires: 03/24/2022 [facility] Work Phone: Comment on above: Expected: 01/22/2022 (Approximate), Expires: 03/24/2022 Start: 01-22-2022 End: 03-24-2022 Cobalamin (Vitamin B12) [Mass/volume] in Serum or Plasma VITAMIN B12 BLOOD Lab Routine Severe episode of recurrent major depressive disorder, without psychotic features (HCC) Expected: 01/22/2022 (Approximate), Expires: 03/24/2022 [facility] Work Phone: Comment on above: Expected: 01/22/2022 (Approximate), Expires: 03/24/2022 Start: 01-22-2022 End: 03-24-2022 Comprehensive metabolic 2000 panel - Serum or Plasma COMP METABOLIC PANEL Lab Routine Severe episode of recurrent major depressive disorder, without psychotic features (HCC) Expected: 01/22/2022 (Approximate), Expires: 03/24/2022 [facility] Work Phone: Comment on above: Expected: 01/22/2022 (Approximate), Expires: 03/24/2022 Start: 01-22-2022 End: 03-24-2022 Thyrotropin [Units/volume] in Serum or Plasma TSH BLD Lab Routine Severe episode of recurrent major depressive disorder, without psychotic features (HCC) Expected: 01/22/2022 (Approximate), Expires: 03/24/2022 [facility] Work Phone: Comment on above: Expected: 01/22/2022 (Approximate), Expires: 03/24/2022 Start: 10-11-2021 Influenza vaccination INFLUENZA (#1) [facility] Start: 05-29-2021 3 comp foot exam completed DIABETIC FOOT EXAM [facility] Start: 05-29-2021 Diabetic foot examination Diabetic Foot Exam [facility] Start: 05-12-2021 Screening for malign ant neoplasm of colon Cologuard (FIT-DNA) [facility] Start: 02-10-2021 ADVANCE DIRECTIVE DISCUSSION ADVANCE DIRECTIVE DISCUSSION [facility] Start: 12-16-2020 Hemoglobin A1c/Hemoglobin.total in Blood HBA1C [facility] Start: 05-29-2020 Hepatitis B surface antibody level LDL CHOLESTEROL [facility] Start: 2015 RSV Vaccine (1 - 1-d ose 60+ series) RSV Vaccine (1 - 1-dose 60+ series) [facility] Start: 2010 PROSTATE CANCER SCREENING DISCUSSION PROSTATE CANCER SCREENING DISCUSSION [facility] Start: 2010 Prostate specific antigen measurement Prostate Cancer Screening Discussion [facility] Start: 2005 SHINGRIX VACCINE (1 of 2) SHINGRIX VACCINE (1 of 2) [facility] Start: 01-27-2000 COLOGUARD (FIT-DNA) COLOGUARD (FIT-D NA) [facility] Start: 01-27-[address] COLONOGRAPHY [facility] Start: 01-27-2000 FECAL OCCULT BLOOD FECAL OCCULT BLOO D [facility] Start: 01-27-2000 Screening for malign ant neoplasm of colon [facility] Start: 01-27-2000 SIGMOIDOSCOPY SIGMOIDOSCOPY [facility] Start: 1974 Urine microalbumin profile [facility] Start: 1973 ANNUAL PCP TEAM GIFT CONSULTANT FLACO DISEASE VISIT ANNUAL PCP TEAM CHRONIC DISEASE VISIT [facility] Start: 1973 BP CONTROLLED (<130/80) BP CONTROLLE D (<130/80) [facility] Start: 1973 HEPATITIS C SCREENING HEPATITIS C [facility] Start: 1973 Hepatitis C screening Hepatitis C [facility] Start: 1965 Glaucoma screening Dilated Retinal E xam [facility] Start: 1965 Hepatitis B screening URINE ALBUMIN:CREATININE RATIO [facility] Start: 1965 Hepatitis C antibody , confirmatory test DILATED RETINAL EXAM [facility] Start: 1961 Pneumococcal Vaccine : 65+ (1 of 2 - PCV) Pneumococcal Vaccine: 65+ (1 of 2 - PCV) [facility] Start: 1961 PNEUMOCOCCAL: 65+ (1 - PCV) PNEUMOCOCCAL: 65+ (1 - PCV) [facility] Start: 1955 COVID-19 VACCINE (#1) COVID-19 VACCI NE (#1) [facility] Bilirubin measuremen t, urine [facility] Hemoglobin [Presence ] in Urine [facility] Measurement of keton es in urine using dipstick [facility] Microscopic urinalysis [facility] Patient [facility] Work Phone: Patient referral [facility] Work Phone: pH of Urine [facility] Specific gravity of Urine [facility] Urinalysis, blood, qualitative [facility] Urine dipstick for glucose [facility] Urine dipstick for leukocyte esterase [facility] Urine dipstick for nitrite [facility] Urine dipstick for protein [facility] Urine examination [facility] Urine microscopy: epithelial cells [facility] Urine Microscopy: wh ite cells [facility] Urobilinogen [Presen ce] in Urine [facility] c Payers Date Payer Category Payer Self-pay [id number] 1997 Medicare MEDICARE MEDICAR E A AND B [id number] 1997-Present [phone] [address] [address] [place] [address] Medicare [id number] 1997 Medicare [id number] Unknown [id number] Unknown [id number] Unknown [id number] Unknown [id number] [id number] Unknown [id number] Unknown [id number] Unknown [id number] Unknown [id number] Unknown [id number] Unknown [id number] Unknown [id number] Unknown [id number] Unknown [id number] [id number] Unknown [id number] Social History Date Type Detail Facility Start: 04-12-2021 End: 02-28-2023 Tobacco smoking status WIIS Unknown if ever smoked [facility] Start: 1955 Sex Assigned At Male [facility] Start: 04-18-2016 End: 12-16-2023 Tobacco smoking status WIIS Never smoked tobacco [facility] Start: 04-18-2016 Tobacco use and exposure Smokeless tobacco non-user [facility] Start: 01-22-2022 End: 07-04-2023 Alcohol intake Ex-drinker (finding) [facility] Start: 05-29-2019 History SDOH Financial 5 [facility] Start: 05-29-2019 History SDOH Food Worry 1 [facility] Start: 05-29-2019 History SDOH Transpo rt Med 2 [facility] Start: 1955 Sex Assigned At Not on file [facility] Start: 07-02-2022 End: 08-27-2022 History of Social function [facility] Start: 07-02-2022 End: 08-27-2022 Tobacco use panel [facility] How hard is it for y ou to pay for the very basics like food, housing, medical care, and heating Not hard at all [facility] (I/We) worried aditi er (my/our) food would run out before (I/we) got money to buy more. Never true [facility] Medical Equipment Procedure Code Equipment Code Equipment Origin al Text Equipment Identifier Dates Drug-eluting coronary artery stent, [id number] [id number]-coated [id number] FDA Start: 12-17-2023 Mental Status Date Assessment Result Facility 12-16-2022 Cognitive function Level Of Cons ciousness Awake;Alert;Appropriate;Follow s Commands [facility] Work Phone: Clinical Notes 07-24-2020 to 12-15-2023 Telephone Encounter - Andrew Ortiz - 08/05/2023 1:13 PM EDTTelephone Encounter - Angel Andrew - 08/05/2023 1:13 PM EDT Note Date & Type Note Facility 12-15-2023 Note [facility] Medical Records Department [address] [place] [address] History Physical Exam 12/15/23 1504 MR#: [id number] Acct: [id number] Name: JOSSUE GIL Rep #: [id number] : 1955 68 From: Susie FREDERICK PCP: Dr. Juvencio Shrestha MD Status:PRE [facility] [place] Location: [facility] History and Physical Jossue Gil is a 68 year old gentleman that established with us in July of 2023. This gentleman has past medical history significant for coronary artery disease status post 5 vessel CABG in 2009 with BRADFORD to the LAD and vein grafts to the right PDA, right posterior lateral ventricular branch, obtuse marginal and diagonal. He also has history of hypertension, CVA and peripheral arterial disease. Patient had not followed up with cardiology in a long while. Per patient, for the last 6 months or so, he has been having anterior chest heaviness with exertion. This is relieved with rest. According to him, he goes to sleep when he has the chest discomfort and wakes up asymptomatic. According to him, the discomfort sometimes radiates into his left arm but not always. Positive associated shortness of breath. Denies any diaphoresis. Denies any rest symptoms. According to him, the symptoms have been more or less stable over the last 6 months with no recent deterioration. Denies any orthopnea. No paroxysmal nocturnal dyspnea. Denies any ankle edema. At his office visit Dr. Bose had discussed with patient about pursuing a diagnostic heart catheterization as he was concerned about his symptoms however patient declined and wanted to pursue a stress test first. He did undergo an echocardiogram in November 2023 which demonstrated an ejection fraction of 60%, left atrium moderately enlarged, RVSP 51 mmHg. Aortic sclerosis no stenosis, mild aortic valve insufficiency.Pharmacologic nuclear stress test demonstrated peak pharmacologic EKG with no diagnostic changes secondary to baseline abnormality. There is no cardiac dysrhythmias on pretest, during pharmacologic infusion or recovery. He did have reversibility of ischemia in the inferior wall. Because of this it did discuss with him about pursuing a diagnostic heart catheterization, patient was agreeable with this. [facility] Medical History (Updated 07/22/23 @ 10:[address] Wily Reyna MD) CVA (cerebral vascular accident) Psychiatric disorder PAD (peripheral artery disease) Cataracts, both eyes Falls Neuropathy Depression CAD (coronary artery disease) Severe persistent asthma Pain in shoulder GERD (gastroesophageal reflux disease) Postnasal drip Hypothyroidism Type 2 diabetes mellitus without complication Hyperlipidemia Hypertension Surgical History (Updated 07/22/23 @ 10:[address] Wily Reyna MD) Hx of cardiac catheterization ( 12/22/12) Hx of five vessel coronary artery bypass ( 11/27/09) Family History Mother CAD (coronary artery disease) stent Cancer brain Diabetes Father Diabetes Cancer bone marrow Social History (Updated 07/22/23 @ 09:56 by Beverly Senior) Smoking Status: Never smoker alcohol intake: former substance use type: does not use caffeine: Yes Type: coffee Number of servings: 2 ROS Const Const: Positive for fatigue, weakness, headache(s) (increased in last couple of months) and daytime sleepiness; Negative for frequent falls, difficulty sleeping or excessive sweating Eyes Eyes: Negative for loss of peripheral vision, transient loss of vision, blurry vision, double vision or tunnel vision ENT ENT: Positive for headache(s) (increased in last couple of months), dizziness and balance problems; Negative for Nosebleed/epistaxis Cardio Chest Pain: Yes Frequency: weekly (3x/week) Character: other (pressure/heaviness) Onset: at rest and exercise Location: left chest Duration: minutes Relieving: rest Palpitations: Yes feels like its: skipping Edema: Bilateral Muscle aches with walking: None Resp Respiratory: Positive for SOB with activity; Negative for SOB at rest, SOB orthopnea SOB lying down, Cough or paroxysmal nocturnal dyspnea GI GI: Positive for nausea and heartburn; Negative vomiting or black,tarry stools : Negative for hematuria Musc Musc: Positive for muscle weakness, joint pain and balance problems; Negative for muscle aches/ myalgia Skin Skin: Negative non-healing lesions, rash or unusual bruising Neuro Neuro: Positive for dizziness, lightheadedness, near syncope, syncope, headache(s) (increased in last couple of months) and weakness; Negative for frequent falls, blurry vision, double vision or lack of coordination Alexys Hematologic/Lymphatic: Negative for easy bleeding or easy bruising Endo Endo: Positive for fatigue; Negative for excessive sweating or increased thirst/drinking Psych Psych: Positive for anxie (more content not included)... [facility] 08-05-2023 Telephone encounter Note I called the patient left message to call the office to reschedule his appointment per his request due to illness. Andrew Ortiz August 05, 2023 1:19 PM [facility] 08-05-2023 Miscellaneous Notes I called the patient left message to call the office to reschedule his appointment per his request due to illness. Andrew Ortiz August 05, 2023 1:19 PM documented in this encounter [facility] 06-24-2023 Note HNO ID: [id number] Author: GABBY OSBORN MD Service: ? Author Type: Resident Type: Progress Notes Filed: 07/04/2023 09:34 Note Text: Attestation signed by Gabby Osborn MD at 07/04/2023 9:34 AM Attending Note [...] providing supportive psychotherapy and coordinating care. Gabby Osborn MD Adult and Geriatric Psychiatry [facility] , [facility] PROGRESS NOTE PATIENT: Jossue Gil MRD: [id number] DATE: June 24, 2023 This document has [...] No homicidal ideation, intent or plan., No delusions/paranoia/hallucinatio ns Cognition: Orientation: Person, Place, Time and Situation [...] Remote history o (more content not included)... [facility] 02-07-2023 Note HNO ID: [id number] Author: German Marcum PT Service: ? Author Type: Physical Therapist Type: Progress Notes Filed: 02/07/2023 11:10 AM Note Text: Episode Visit Count: 1 Therapist That Will Accept/Oversee The Plan Of Care: German Marcum PT Start of Care Date: 02/07/23 Onset Date: 02/07/21 Plan of Care Certification Date: 02/07/23 Next Certification Due Date: 03/14/23 Patient Identified by Name and Date of : Yes REHABILITATION AND SPORTS THERAPY PHYSICAL THERAPY EVALUATION PLAN OF CARE: Assessment: Jossue Win HamiltonHoahaoism presents with chief complaint of falls that [...] Planned: 4 Planned Treatment Interventions: Therapeutic exercise (71202), Neuromuscular re-education (17746), Manual therapy (40192), Therapeutic activities (05104), Gait Training (60673), Patient/Family/Caregiver Education, Self-snf management (66449) PLAN FOR NEXT VISIT: Balance training in [...] Minutes: 12 Ski (more content not included)... [facility] 12-16-2022 Discharge summary Note Date/Time December 16, 2022 12:48pm [facility] Medical Records Department [address] [place] [address] Emergency Department Summary 12/16/22 MR#: [id number] Acct: [id number] Name: JOSSUE GIL Rep #:[id number] : 1955 67 From: Ty Oro DO PCP: Dr. Juvencio Shrestha MD Status:REG ER Location: ED HPI History of Present Illness Chief Complaint: Hypoglycemia Narrative Narrative: 67-year-old male with history of diabetes poorly with hypoglycemic episode. He states that he has been having trouble with his blood sugars recently. He tellsme that he was given his glipizide and metformin this morning which he takes p.o. twice daily and decided to go back to sleep and slept all morning. He did not eat breakfast or lunch. He was supposed to go to his primary care physiciantoday to discuss the low blood sugars. He reports that he drinks 1 to 3 glassesof water a day. He drinks juice sometimes and coffee as well as tea. He stateshe does not eat much. [facility] Medical History Diabetes History of stroke Hyperlipidemia Hypertension Hypothyroid Home Medications aspirin 81 mg capsule 81 mg PO DAILY 04/12/21 [History Last Taken Unknown] atorvastatin 80 mg tablet 40 mg PO DAILY 04/12/21 [History Last Taken Unknown] glipizide 5 mg tablet 10 mg PO BID 04/12/21 [History Last Taken Unknown] levothyroxine 112 mcg tablet 112 mcg PO DAILY 04/12/21 [History Last Taken Unknown] metformin 500 mg tablet 500 mg PO BID 04/12/21 [History Last Taken Unknown] metoprolol tartrate 25 mg tablet 25 mg PO BID 04/12/21 [History Last Taken Unknown] pantoprazole 40 mg tablet,delayed release 40 mg PO DAILY 04/12/21 [History Last Taken Unknown] sucralfate 1 gram tablet 1 g PO Q8 04/12/21 [History Last Taken Unknown] Allergy/AdvReac Type Severity Reaction Status Date / Time erythromycin base Allergy Unknown Rash Verified 09/24/22 14:46 [From E-Mycin] chondroitin sulfate A Allergy Hives Verified 05/30/22 14:15 [From DuoVisc Visco Elastic] hyaluronic acid Allergy Hives Verified 05/30/22 14:15 [From DuoVisc Visco Elastic] Surgical History History of heart bypass surgery Social History Smoking Status: Never smoker ROS ROS ED Constitutional Constitutional ED: Denies chills, fever(s) or sweats Eyes Eyes: Denies blurry vision or change in vision ENT ENT ED: Denies ear pain or sore throat Cardiovascular Cardiovascular: Denies chest pain, palpitations or racing heartbeat Respiratory/Chest Respiratory/Chest: Denies cough, dyspnea or sputum Gastrointestinal Gastrointestinal: Denies abdominal pain, constipation, diarrhea, nausea or vomiting Genitourinary Genitourinary ED: Denies dysuria, hematuria or urinary frequency Musculoskeletal Musculoskeletal: Denies arthralgias, myalgias or neck pain Integumentary Denies abscess, Abrasions or rash Neurologic Neurologic: Denies headache(s), paresthesias or weakness Psychiatric Psychiatric: Denies anxiety, depression, suicidal ideation or suicidal thoughts Endocrine Endocrinology: Denies polydipsia or polyuria EXAM Physical Exam Const Vital Signs: 12/16/22 12:24 12/16/22 12:31 Temperature 97.6 F L Temperature Source Oral Pulse Rate 57 L Respiratory Rate 18 Respiratory Effort Normal Respiratory Pattern Normal Blood Pressure 144/50 H Blood Pressure Mean 81 Pulse Ox 99 Oxygen Delivery Method Room Air Positive well nourished General Appearance ED: NAD HEENT Reports moist mucous membranes Resp normal respiratory effort Cardio regular rate and regular rhythm Neuro oriented x3 and CN's II-XII intact bilaterally Sensorium / Orientation: alert Psych mental status grossly normal Skin no rashes or lesions noted and no wounds MDM MDM MDM Narrative Medical decision making narrative: Patient with episode of hypoglycemia. It sounds as if he is not eating and drinking a lot and he is taking his diabetic medications and causing low blood sugars. He was post see his PCP today but did not because of the episode. He states he feels fine now. He was given oral glucose and D10 drip prior to arrival. His blood sugar is now in the 90s. He feels better. He states he would still like to eat something and his sugars little higher. No abdominal pain, chest pain, shortness of breath. We will obtain a CBC to assess white blood cell count, hemoglobin, platelets. BMP to assess renal function and electrolytes. Urinalysis to assess for UTI. CBC shows normal white blood cell count 7.1. Hemoglobin is 9.6 with no comparison for years but he is not admitting to any black or bloody stools or black or bloody emesis. He is not onany blood thinners. He is not hypotensive. His BUN is not elevated to suggest GI bleed. Creatinine is elevated today at 1.31 so he was given IV fluids. Glucose 266 without anion gap. Discussed with the patient's primary care physician who recommended that we discontinue the glipizide for now and increasehis fluid intake as well as regular meals with his metformin. He states that his A1c typically is elevated in the 9 range. He will follow-up with him as an outpatient. He will restart his glipizide at a later date. Impression: 1. dehydration 2. Hyperglycemia 3. Anemia Lab Data Attestation: I reviewed the patient's lab results. Labs: Laboratory Results - last 24 hr 12/16/22 12/16/22 12:40 13:31 WBC 7.1 RBC 3.25 L Hgb 9.6 L Hct 31.6 L MCV 97.2 H MCH 29.5 MCHC 30.4 L RDW Std Deviation 46.9 H RDW Coeff of Jolynn 13.2 Plt Count 218 MPV 10.2 Immature Gran % (Auto) 0.400 Neut % (Auto) 73.6 H Lymph % (Auto) 17.5 L [place] % (Auto) 7.1 Eos % (Auto) 1.1 Baso % (Auto) 0.3 Absolute Neuts (auto) 5.3 Absolute Lymphs (auto) 1.25 Nucleated RBC % 0 Sodium 133 L Potassium 4.3 Chloride 102 Carbon Dioxide 25.0 Anion Gap 6 BUN 20 H Creatinine 1.31 H Estim Creat Clear Calc 47.60 Est GFR (MDRD) Af Amer 70 Est GFR (MDRD) Non-Af 58 L BUN/Creatinine Ratio 15.3 Glucose 266 H Calcium 8.7 POC Glucose 176 H Discharge Plan Triage Chief Complaint: Hypoglycemia ED Provider: Ty Oro Dx/Rx/DC Orders Instructions: ED Hypoglycemia Oral Diabetic ... Prescriptions: No Action metformin 500 mg tablet 500 mg PO BID Patient Comments: TAKE ONE TABLET BY MOUTH TWICE A DAY WITH meals for 30 days atorvastatin 80 mg tablet 40 mg PO DAILY Patient Comments: TAKE ONE TABLET BY MOUTH EVERY DAY sucralfate 1 gram tablet 1 g PO Q8 Patient Comments: TAKE 1 TABLET BY MOUTH ON AN EMPTY STOMACH EVERY 8 HOURS pantoprazole 40 mg tablet,delayed release (DR/EC) 40 mg PO DAILY Patient Comments: TAKE ONE TABLET BY MOUTH ONCE DAILY glipizide 5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
[2025-01-15 11:58] LABS: Color, Urine Yellow (Yellow); Glucose, Dipstick 1000 mg/dl (Normal); Ketone-Dipstick Negative (Negative); Leukocyte Esterase-Dipstick 25 /ul (Negative); Nitrite-Dipstick Negative (Negative); Occult Blood-Urine Negative /ul (Negative); Protein-Dipstick 15 mg/dl (Negative); Specific Gravity, Urine 1.015 (1.002-1.030); Urine Bilirubin Dipstick Negative (Negative)
[2025-01-15 12:28] LABS: AST(SGOT) 15 U/L (<=37); Alanine Aminotransfer ALT/SGPT 12 U/L (<=46); Albumin, Serum 4.3 g/dL (3.4-4.8); Alkaline Phosphatase 61 U/L (40-129); Anion Gap 11 (5-15); BUN 22 mg/dL (4-19); BUN/Creat Ratio 16.7 RATIO (10-20); Calcium,Total 9.5 mg/dL (7.6-11.0); Carbon Dioxide 24.0 mmol/L (21.0-32.0); Chloride 99 mmol/L (98-108); Globulin 3.2 g/dL (2.2-4.2); Glucose 187 mg/dL (70-99); Potassium 4.8 mmol/L (3.3-5.1)
== END | disposition home or self-care (01) ==
LOC: LAB 11:34
PROVIDERS: PCP Internal Medicine; Referring Provider Internal Medicine; Visit Provider Internal Medicine
DX: E87.5 Hyperkalemia (principal); R31.29 Other microscopic hematuria
CPT/HCPCS: 36415; 80053; 81001; 87086